=== PATIENT | male | born 1950 | race Caucasian/White ===

== ENCOUNTER 2018-06-18 10:58 | Outpatient (CLI) | payer MEDICARE, BC ==
[2018-06-18 11:54] LABS: BASOPHILS # (AUTO) 0.1 /CMM (0.0-0.2); BASOPHILS % (AUTO) 1.6 % (0.0-2.0); EOSINOPHILS % (AUTO) 2.3 % (0.0-6.0); HEMATOCRIT 43 % (39-51); HEMOGLOBIN 14.2 g/dL (13.5-17.5); LYMPHOCYTES # (AUTO) 1.5 /CMM (0.8-4.8); LYMPHOCYTES % (AUTO) 16.5 % (20.0-44.0); MEAN CORPUSCULAR HGB CONC 33 g/dl (31.0-36.0); MEAN CORPUSCULAR VOLUME 98 fL (80-96); MONOCYTES # (AUTO) 1.1 /CMM (0.1-1.30); MONOCYTES % (AUTO) 11.5 % (2.0-12.0); NEUTROPHILS # (AUTO) 6.2 /CMM (1.8-8.9); NEUTROPHILS % (AUTO) 68.1 % (43.0-81.0); PLATELET COUNT (AUTO) 430 /CMM (150-450); RED BLOOD CELL COUNT(AUTO) 4.37 MIL/uL (4.5-6.0); WHITE BLOOD COUNT (AUTO) 9.2 K/uL (4.3-11.0)
[2018-06-18 12:07] LABS: ALBUMIN 3.4 g/dL (3.4-5.0); BILIRUBIN,TOTAL 0.4 mg/dL (0.2-1.0); CALCIUM, SERUM 10.7 mg/dL (8.5-10.1); CREATININE 0.9 mg/dL (0.6-1.3); POTASSIUM 3.7 mmol/L (3.5-5.1); TOTAL PROTEIN, SERUM 7.6 g/dL (6.4-8.2)
[2018-06-18 12:20] LABS: FREE T4 (FREE THYROXINE) 0.76 ng/dL (0.76-1.46); PROSTATE SPECIFIC ANTIGEN SCR 15.1 ng/mL (0.00-4.00)
[2018-06-18 13:27] LABS: THYROID STIMULATING HORMONE 1.395 uIU/mL (0.358-3.74)
== END 2018-06-18 23:59 | disposition home or self-care (01) ==
LOC: LAB 10:58
PROVIDERS: ATTEND Internal Medicine Hematology & Oncology
DX: C18.9 Malignant neoplasm of colon, unspecified (principal); C73 Malignant neoplasm of thyroid gland
CPT/HCPCS: 36415; 80053; 82378; 84439; 84443; 85025; 86800; G0103; 84153-TC

== ENCOUNTER 2018-06-21 13:52 | Outpatient (CLI) | payer MEDICARE, BC | END 2018-06-21 23:59 | disposition home or self-care (01) | LOC: WOU 13:52 | PROVIDERS: ATTEND Internal Medicine Hematology & Oncology | DX: Z45.2 Encounter for adjustment and management of vascular access device (principal); C18.9 Malignant neoplasm of colon, unspecified; C73 Malignant neoplasm of thyroid gland | CPT/HCPCS: 36569; C1751 ==

== ENCOUNTER 2018-07-22 15:47 | Outpatient (CLI) | payer MEDICARE, BC | END 2018-07-22 23:59 | disposition home or self-care (01) | LOC: RAD 15:47 | PROVIDERS: ATTEND Internal Medicine Hematology & Oncology | DX: Z01.818 Encounter for other preprocedural examination (principal); J39.8 Other specified diseases of upper respiratory tract; E04.1 Nontoxic single thyroid nodule; E07.9 Disorder of thyroid, unspecified; M85.80 Other specified disorders of bone density and structure, unspecified site | CPT/HCPCS: 71045-TC ==

== ENCOUNTER 2018-08-19 08:54 | Outpatient (CLI) | payer MEDICARE, BC | END 2018-08-19 23:59 | disposition home or self-care (01) | LOC: RAD 08:54 | PROVIDERS: ATTEND Internal Medicine Hematology & Oncology | DX: E04.1 Nontoxic single thyroid nodule (principal) | CPT/HCPCS: 78014; A9516 ==

== ENCOUNTER 2018-11-26 14:44 | Outpatient (CLI) | payer MEDICARE, BC | END 2018-11-26 23:59 | disposition home or self-care (01) | LOC: RAD 14:44 | PROVIDERS: ATTEND Internal Medicine Hematology & Oncology | DX: Z01.818 Encounter for other preprocedural examination (principal) | CPT/HCPCS: 71046 ==

== ENCOUNTER 2019-02-01 10:45 | Outpatient (CLI) | payer MEDICARE, BC | END 2019-02-01 23:59 | disposition home or self-care (01) | LOC: RAD 10:45 | PROVIDERS: ATTEND Internal Medicine Hematology & Oncology | DX: C73 Malignant neoplasm of thyroid gland (principal); C18.9 Malignant neoplasm of colon, unspecified | CPT/HCPCS: 78306; A9503 ==

== ENCOUNTER 2019-03-11 13:06 | Outpatient (CLI) | payer MEDICARE, BC ==
[2019-03-27] MEDS ORDERED: CEPH-570 PO (09:38)
== END 2019-03-11 23:59 | disposition home or self-care (01) ==
LOC: RAD 13:06
PROVIDERS: ATTEND Internal Medicine Hematology & Oncology
DX: C79.51 Secondary malignant neoplasm of bone (principal)
CPT/HCPCS: 73552

== ENCOUNTER 2019-03-23 14:38 | Inpatient (IN) | payer MEDICARE, BC ==
[~2019-03-23] VITALS: Ht 182.9 cm; Wt 58.1 kg
--- NOTE | 2019-03-23 14:55 | NUR ---
"GENERALIZED WEAKNESS, LOSS OF APETITE X 1 WEEK" PT AAOX4, -SOB, NAD NOTED, PT ON MONITOR,VSS PENDING MD BAHENA
[2019-03-23] MEDS ORDERED: IV NS 0.9% 1,000 ML BAG IV ONE (15:30)
[2019-03-23 15:33] LABS: BASOPHILS # (AUTO) 0.1 /CMM (0.0-0.2); BASOPHILS % (AUTO) 0.7 % (0.0-2.0); EOSINOPHILS % (AUTO) 0.7 % (0.0-6.0); HEMATOCRIT 48 % (39-51); HEMOGLOBIN 15.8 g/dL (13.5-17.5); LYMPHOCYTES # (AUTO) 1.7 /CMM (0.8-4.8); LYMPHOCYTES % (AUTO) 20.9 % (20.0-44.0); MEAN CORPUSCULAR HGB CONC 33 g/dl (31.0-36.0); MEAN CORPUSCULAR VOLUME 101 fL (80-96); MONOCYTES # (AUTO) 0.4 /CMM (0.1-1.30); MONOCYTES % (AUTO) 5.1 % (2.0-12.0); NEUTROPHILS # (AUTO) 5.9 /CMM (1.8-8.9); NEUTROPHILS % (AUTO) 72.6 % (43.0-81.0); PLATELET COUNT (AUTO) 223 /CMM (150-450); RED BLOOD CELL COUNT(AUTO) 4.71 MIL/uL (4.5-6.0); WHITE BLOOD COUNT (AUTO) 8.1 K/uL (4.3-11.0)
[2019-03-23 15:35] LABS: CALCIUM, SERUM 10.3 mg/dL (8.5-10.1); CARBON DIOXIDE 29 mmol/L (21-32); CHLORIDE 100 mmol/L (98-107); CREATININE 2.4 mg/dL (0.6-1.3); GLUCOSE 130 mg/dL (74-106); POTASSIUM 4.5 mmol/L (3.5-5.1); SODIUM SERUM 137 mmol/L (136-145); UREA NITROGEN, BLOOD 38 mg/dL (7-18)
--- NOTE | 2019-03-23 17:46 | NUR ---
room [phone]
--- NOTE | 2019-03-23 17:53 | NUR ---
CALLED FOR REPORT, NURSE NOT AVAILABLE
--- NOTE | 2019-03-23 18:12 | NUR ---
REPORT GIVEN TO ROM DEGROOT FOR RENEE PT WILL BE TRANSPORTED TO 3RD FLOOR-MS
[2019-03-23] MEDS ORDERED: IV NS 0.9% 1,000 ML IV PRN (18:23)
[2019-03-23] MEDS ORDERED: ACETAMINOPHEN 325 MG TABLET PO PRN (18:30)
[2019-03-23] MEDS ORDERED: MAG HYDROX/AL HYDROX/SIMETH 30 ML UDC PO PRN (18:30)
[2019-03-23] MEDS ORDERED: HYDROCODONE/APAP 5/325MG 1 EACH TABLET PO PRN (18:30)
[2019-03-23] MEDS ORDERED: ONDANSETRON HCL/PF 4 MG/2 ML VIAL IVP PRN (18:30)
[2019-03-23] MEDS ORDERED: MAGNESIUM HYDROXIDE 30 ML UDC PO PRN (18:30)
[2019-03-23] MEDS ORDERED: Z GUARD REMEDY 2 OZ OINT TP PRN (18:30)
--- NOTE | 2019-03-23 18:40 | NUR ---
PT TRANSPORTED TO 3RD FLOOR VIA W/C
--- NOTE | 2019-03-23 19:10 | NUR ---
MS RN ADMITTING NOTES RECEIVED PT IN BED AWAKE AND ABLE TO MAKE NEEDS KNOWN. PT A/O X3. RESPIRATIONS EVEN AND UNLABORED WITH NO S/S OF ACUTE DISTRESS OR SOB NOTED. NO COMPLAINTS OF PAIN AT THIS TIME. PT WITH RAC@18G PATENT AND INTACT AND SL. SAFETY MEASURES IN PLACE WITH BED IN LOWEST LOCKED POSITION WITH SIDE RAILS UP X2. PT DENIES PICTURES AT THIS TIME. ORIENTED PT TO UNIT AND ROOM. INFORMED PT TO USE CALL LIGHT WHEN HELP IS NEEDED. CALL LIGHT WITHIN REACH. WILL CONTINUE TO MONITOR.
[2019-03-23 20:00] VITALS: BP 117/76
[2019-03-23] MEDS: LEVOTHYROXINE SODIUM 75 MCG TABLET PO SCH (20:21)
[2019-03-23] MEDS: IV NS 0.9% 1,000 ML IV PRN (20:37)
[2019-03-24] MEDS: IV NS 0.9% 1,000 ML IV PRN ×3 (06:53→22:10)
--- NOTE | 2019-03-24 06:57 | NUR ---
MS RN NOTES PT IN BED ASLEEP BUT EASILY AWOKEN VERBALLY OR BY TOUCH. PT A/O X3 AND ABLE TO MAKE NEEDS KNOWN. RESPIRATIONS EVEN AND UNLABORED WITH NO S/S OF ACUTE DISTRESS OR SOB NOTED THROUGHOUT SHIFT. NO COMPLAINTS OF PAIN AT THIS TIME. PT WITH RAC@18G PATENT AND INTACT AND RUNNING NS @100ML/HR. SAFETY MEASURES IN PLACE WITH BED IN LOWEST LOCKED POSITION WITH SIDE RAILS UP X2. CALL LIGHT WITHIN REACH. WILL ENDORSE TO ONCOMING NURSE FOR RENEE.
[2019-03-24 07:13] LABS: CALCIUM, SERUM 9.1 mg/dL (8.5-10.1); CREATININE 1.8 mg/dL (0.6-1.3); MAGNESIUM 1.4 mg/dL (1.8-2.4); PHOSPHORUS 3.8 mg/dL (2.5-4.9)
[2019-03-24 07:17] LABS: BASOPHILS % (AUTO) 0.5 % (0.0-2.0); EOSINOPHILS % (AUTO) 1.5 % (0.0-6.0); HEMATOCRIT 44 % (39-51); HEMOGLOBIN 14.4 g/dL (13.5-17.5); LYMPHOCYTES # (AUTO) 1.4 /CMM (0.8-4.8); LYMPHOCYTES % (AUTO) 21.4 % (20.0-44.0); MEAN CORPUSCULAR HGB CONC 33 g/dl (31.0-36.0); MEAN CORPUSCULAR VOLUME 100 fL (80-96); MONOCYTES # (AUTO) 0.4 /CMM (0.1-1.30); MONOCYTES % (AUTO) 5.6 % (2.0-12.0); NEUTROPHILS # (AUTO) 4.7 /CMM (1.8-8.9); PLATELET COUNT (AUTO) 211 /CMM (150-450); RED BLOOD CELL COUNT(AUTO) 4.37 MIL/uL (4.5-6.0); WHITE BLOOD COUNT (AUTO) 6.6 K/uL (4.3-11.0)
[2019-03-24 07:19] LABS: THYROID STIMULATING HORMONE 31.694 uIU/mL (0.358-3.74)
[2019-03-24 08:00] VITALS: BP 131/95
--- NOTE | 2019-03-24 08:00 | NUR ---
MS RN AM NOTES PT IN BED ASLEEP BUT EASILY AWOKEN VERBALLY OR BY TOUCH. PT A/O X3 AND ABLE TO MAKE NEEDS KNOWN. RESPIRATIONS EVEN AND UNLABORED WITH NO S/S OF ACUTE DISTRESS OR SOB NOTED.HAS POOR INTAKE INSPITE OF ENCOURAGEMENTS.NO COMPLAINTS OF PAIN AT THIS TIME. PT WITH RAC@18G PATENT AND INTACT AND RUNNING NS @100ML/HR. SAFETY MEASURES IN PLACE WITH BED IN LOWEST LOCKED POSITION WITH SIDE RAILS UP X2. CALL LIGHT WITHIN REACH.
[2019-03-24] MEDS: LEVOTHYROXINE SODIUM 75 MCG TABLET PO SCH (08:30)
[2019-03-24 10:10] LABS: THYROID STIMULATING HORMONE 31.912 uIU/mL (0.358-3.74)
[2019-03-24 11:00] VITALS: BP 160/87
[2019-03-24] MEDS: Magnesium 1GM/D5W 100ML PREMIX 100 ML IV SCH ×2 (11:25→12:43)
[2019-03-24 12:33] VITALS: BP 144/70
[2019-03-24 15:45] VITALS: BP 122/75
[2019-03-24] MEDS: ENSURE ENLIVE CHOC 237 ML CAN PO SCH ×2 (16:00→18:06)
[2019-03-24 20:00] VITALS: BP 121/74
--- NOTE | 2019-03-24 21:08 | NUR ---
Patient is alert and oriented, resides locally with spouse/family. He is ambulatory and independent with adl's. Denies having DME or homehealth. Pcp is Dr.Sujie Sousa. Current dc plan is to return home , family will provide ride. Addendum: 03/24/19 at 2109 by COLETTE RUGGIERO RN Amended: Links added.
--- NOTE | 2019-03-24 22:25 | NUR ---
MS/RN ON INITIAL ROUND AT 1930, PATIENT WAS AWAKE, ALERT, ORIENTED, COMFORTABLE, NO C/O PAIN, NO DISTRESS NOTED, CALL LIGHT IN REACH. WILL MONITOR.
--- NOTE | 2019-03-25 00:06 | NUR ---
MS/RN PATIENT IS SLEEPING AT THIS TIME, APPEAR COMFORTABLE, NO DISTRESS NOTED, CALL LIGHT IN REACH. WILL CONTINUE TO MONITOR.
--- NOTE | 2019-03-25 05:58 | NUR ---
MS/RN PATIENT IS STILL SLEEPING AT THIS TIME, APPEAR COMFORTABLE, NO DISTRESS NOTED, CALL LIGHT IN REACH. ALL NEEDS ATTENDED AT THIS TIME, WILL CONTINUE TO MONITOR.
[2019-03-25 06:24] LABS: BASOPHILS % (AUTO) 0.5 % (0.0-2.0); EOSINOPHILS % (AUTO) 0.7 % (0.0-6.0); HEMATOCRIT 42 % (39-51); LYMPHOCYTES # (AUTO) 1.4 /CMM (0.8-4.8); LYMPHOCYTES % (AUTO) 17.6 % (20.0-44.0); MEAN CORPUSCULAR HGB CONC 34 g/dl (31.0-36.0); MEAN CORPUSCULAR VOLUME 100 fL (80-96); MONOCYTES # (AUTO) 0.5 /CMM (0.1-1.30); MONOCYTES % (AUTO) 6.7 % (2.0-12.0); NEUTROPHILS % (AUTO) 74.5 % (43.0-81.0); PLATELET COUNT (AUTO) 230 /CMM (150-450); RED BLOOD CELL COUNT(AUTO) 4.16 MIL/uL (4.5-6.0); WHITE BLOOD COUNT (AUTO) 8.1 K/uL (4.3-11.0)
[2019-03-25 07:24] LABS: CALCIUM, SERUM 8.5 mg/dL (8.5-10.1); CREATININE 1.6 mg/dL (0.6-1.3); MAGNESIUM 1.7 mg/dL (1.8-2.4); POTASSIUM 3.8 mmol/L (3.5-5.1)
--- NOTE | 2019-03-25 07:28 | NUR ---
MS RN OPENING NOTES RECEIVED PATIENT ASLEEP IN BED IN MODERATE HIGH BACK REST. A/O X 4. IV FLUIDS ON RIGHT AC #18 WITH NS @100ML/HR. PATENT AND INTACT. SAFETY MEASURES IN PLACED, BED IN LOW LOCKED POSITION WITH SIDE RAILS UP X2. CALL LIGHT WITHIN REACH. WILL CONTINUE TO MONITOR.
[2019-03-25 08:00] VITALS: BP 119/85
[2019-03-25] MEDS: LEVOTHYROXINE SODIUM 75 MCG TABLET PO SCH (08:14)
[2019-03-25] MEDS: ENSURE ENLIVE CHOC 237 ML CAN PO SCH ×3 (08:14→16:54)
[2019-03-25] MEDS ORDERED: Magnesium 1GM/D5W 100ML PREMIX 100 ML IV SCH (10:00)
[2019-03-25 10:07] LABS: APPEARANCE,URINE SL CLOUDY (CLEAR); BILIRUBIN,URINE NEGATIVE (NEGATIVE); BLOOD, URINE NEGATIVE Ery/uL (NEGATIVE); COLOR,URINE YELLOW (YELLOW); KETONES,URINE NEGATIVE (NEGATIVE); LEUKOCYTE ESTERASE ,URINE 1+ (NEGATIVE); NITRITE, URINE NEGATIVE (NEGATIVE); PH,URINE 5.5 (5.0-8.0); PROTEIN,URINE 2+ mg/dl (NEGATIVE); UGLUCOSE NEGATIVE (NEGATIVE); UROBILINOGEN,URINE 0.2 EU/dL (0.2)
--- NOTE | 2019-03-25 10:09 | NUR ---
WOUND CARE CONSULT:PT PRESENTS WITH DRY SKIN TO ARMS AND LEGS AND RASH TO BUTTOCKS AND PERINEUM. RECOMMENDATIONS MADE FOR SKIN PROTECTION AND CARE. DISCUSSED WITH NURSING STAFF. IN AGREEMENT WITH PLAN OF CARE. Addendum: 03/25/19 at 1013 by NAGA BLACK WNDNU Amended: Links added.
[2019-03-25] MEDS ORDERED: MINERAL OIL/PETROLATUM,WHITE 120 GM JAR TP PRN (10:30)
[2019-03-25 10:50] LABS: RBC,URINE 0-2 /HPF (0-2)
[2019-03-25 10:53] LABS: BACTERIA,URINE Rare /HPF (None Seen); COARSE GRANULAR CASTS,URINE Few /LPF (None Seen); SQUAMOUS EPITHELIAL CELL,UR Rare /HPF (None Seen)
[2019-03-25 10:54] LABS: CALCIUM OXALATE CRYSTALS,UR Few /HPF (None Seen); FINE GRANULAR CASTS,URINE Few /LPF (None Seen)
[2019-03-25] MEDS: CEFTRIAXONE 1 G in IV D5W 50 ML IV SCH (13:39)
[2019-03-25] MEDS: IV NS 0.9% 1,000 ML IV PRN (13:41)
[2019-03-25 16:00] VITALS: BP 100/76
[2019-03-25] MEDS: CLOTRIMAZOLE 1% 15 GM TUBE TP SCH (16:55)
[2019-03-25] MEDS: LOPERAMIDE HCL (2 MG CAP) 2 MG CAPSULE PO PRN (18:02)
--- NOTE | 2019-03-25 18:52 | NUR ---
MS RN CLOSING NOTES PATIENT RESTING IN BED IN MODERATE HIGH BACK REST. A/O X 4. ON RA, TOLERATING WELL. IV FLUIDS ON RIGHT AC #18 WITH NS @100ML/HR. PATENT AND INTACT. SAFETY MEASURES IN PLACED, BED IN LOW LOCKED POSITION WITH SIDE RAILS UP X2. CALL LIGHT WITHIN REACH. WILL ENDORSED TO MODEL MAKER SCALE NURSE FOR RENEE.
--- NOTE | 2019-03-25 18:55 | NUR ---
RN medsurg opening notes Received Pt from morning nurse. Pt is alert and oriented X4. Pt is laying in bed comfortably. Respiration is normal. No SOB. No nausea or vomiting. Pt denies any pain or discomfort. IV sites at R AC # 18 is clean, intact, patent and infusing well NS @ 100ml/hr. Instructed Pt to call for assistance. Safety precautions is maintained. Bed at low position, brakes locked, side rails upX3 and call light is within reach. Will continue to monitor and assist all needs.
[2019-03-25 20:00] VITALS: BP 132/82
[2019-03-26] MEDS: IV NS 0.9% 1,000 ML IV PRN (01:16)
[2019-03-26] MEDS: LOPERAMIDE HCL (2 MG CAP) 2 MG CAPSULE PO PRN (04:55)
--- NOTE | 2019-03-26 04:55 | NUR ---
RN medsurg notes Administered Imodium cap 2 mg/ 1 cap /PO as ordered for diarrhea per Pt's request. Will continue to monitor.
[2019-03-26 06:31] LABS: BASOPHILS % (AUTO) 0.4 % (0.0-2.0); EOSINOPHILS % (AUTO) 0.8 % (0.0-6.0); HEMATOCRIT 41 % (39-51); HEMOGLOBIN 13.9 g/dL (13.5-17.5); LYMPHOCYTES # (AUTO) 1.3 /CMM (0.8-4.8); LYMPHOCYTES % (AUTO) 22.5 % (20.0-44.0); MEAN CORPUSCULAR HGB CONC 34 g/dl (31.0-36.0); MEAN CORPUSCULAR VOLUME 100 fL (80-96); MONOCYTES # (AUTO) 0.6 /CMM (0.1-1.30); NEUTROPHILS # (AUTO) 3.8 /CMM (1.8-8.9); NEUTROPHILS % (AUTO) 66.3 % (43.0-81.0); PLATELET COUNT (AUTO) 229 /CMM (150-450); RED BLOOD CELL COUNT(AUTO) 4.15 MIL/uL (4.5-6.0); WHITE BLOOD COUNT (AUTO) 5.8 K/uL (4.3-11.0)
--- NOTE | 2019-03-26 06:40 | NUR ---
RN medsurg closing notes Pt is alert and oriented X4. Pt is sleeping in bed comfortably. No SOB. No nausea or vomiting. Pt denies any pain. IV sites at RAC#18 is patent, intact and infusing well NS @ 100ml/hr. Skin care provided. All needs met. Encouraged Pt to eat and drink ensure. Safety precautions is maintained. Instructed to call. Bed at low position, brakes locked, side rails upX2 and call light is within reach. Will endorse to morning nurse for RENEE.
[2019-03-26 07:06] LABS: CALCIUM, SERUM 7.9 mg/dL (8.5-10.1); CREATININE 1.5 mg/dL (0.6-1.3); MAGNESIUM 1.7 mg/dL (1.8-2.4); POTASSIUM 3.7 mmol/L (3.5-5.1)
--- NOTE | 2019-03-26 07:45 | NUR ---
MS RN OPENING NOTES RECEIVED PT LAYING IN BED WITH HOB ELEVATED. PT IS A/O X4, AFEBRILE. RESPIRATIONS ARE EVEN AND UNLABORED, NOT IN ANY ACUTE DISTRESS NOTED. DENIES ANY PAIN, SOB, N/V. IV SITE TO RAC INTACT, NO INFILTRATION NOTED. DRESSING KEPT CLEAN AND DRY. SAFETY MEASURES ARE IN PLACE. INSTRUCTED PT TO USE CALL LIGHT WHEN ASSISTANCE IS NEEDED, CALL LIGHT IS LEFT WITHIN REACH. WILL MONITOR THROUGHOUT SHIFT FOR CONTINUITY OF CARE.
[2019-03-26 08:00] VITALS: BP_SYST 112; BP_DIAS 61; BP_DIAS 66
[2019-03-26] MEDS: LEVOTHYROXINE SODIUM 75 MCG TABLET PO SCH (08:30)
[2019-03-26] MEDS: CLOTRIMAZOLE 1% 15 GM TUBE TP SCH ×2 (08:31→16:07)
[2019-03-26] MEDS: ENSURE ENLIVE CHOC 237 ML CAN PO SCH ×3 (08:31→16:06)
[2019-03-26] MEDS: Magnesium 1GM/D5W 100ML PREMIX 100 ML IV SCH ×2 (09:52→10:55)
--- NOTE | 2019-03-26 10:30 | NUR ---
MS RN NOTES-- PT SEEN AND EXAMINED BY DR. MATHEWS.
--- NOTE | 2019-03-26 12:00 | NUR ---
MS RN NOTES-- PT SEEN AND EXAMINED BY EDGARDO DELUNA NP.
[2019-03-26] MEDS: CEFTRIAXONE 1 G in IV D5W 50 ML IV SCH (13:40)
[2019-03-26 16:00] VITALS: BP 114/75
--- NOTE | 2019-03-26 18:29 | NUR ---
MS RN CLOSING NOTES ALL DUE MEDS GIVEN, NEEDS MET AND RENDERED. PT IS A/O X4, AFEBRILE. RESPIRATIONS ARE EVEN AND UNLABORED, NOT IN ANY ACUTE DISTRESS NOTED. PT DENIES ANY PAIN, SOB, N/V. IV SITE TO RAC INTACT, NO INFILTRATION NOTED. DRESSING KEPT CLEAN AND DRY. SAFETY MEASURES ARE IN PLACE. REMINDED PT TO USE CALL LIGHT WHEN ASSISTANCE IS NEEDED, CALL LIGHT IS LEFT WITHIN REACH. WILL ENDORSE TO NEXT SHIFT FOR CONTINUITY OF CARE.
--- NOTE | 2019-03-26 19:37 | NUR ---
RN MS OPENING NOTES RECEIVED PT IN BED, AWAKE ALERT ORIENTED, X4, BREATHING EVEN AND UNLABORED ON ROOM AIR, NO SOB NOTED. NO COMPLAINT OF PAIN OR DISCOMFORT AT THIS TIME. IV ACCESS ON THE R AC 18 G SL PATENT AND FLUSHING. BED IN LOWEST LOCKED POSITION, CALL LIGHT WITHIN REACH AT ALL TIMES, WILL CONTINUE TO MONITOR.
[2019-03-26 20:00] VITALS: BP 125/77
--- NOTE | 2019-03-27 06:08 | NUR ---
RN MS CLOSING NOTES PT REMAINS IN BED SLEEPING, EASILY AROUSED TO NAME CALL. BREATHING EVEN AND UNLABORED ON ROOM AIR. IN NO APPARENT PAIN OR DISCOMFORT AT THE MOMENT. IV ACCESS REMAINS PATENT AND FLUSHING. REMAINED STABLE DURING NIGHT. BED IN LOWEST LOCKED POSITION, CALL LIGHT WITHIN REACH AT ALL TIMES, WILL ENDORSE TO DAY NURSE FOR RENEE
--- NOTE | 2019-03-27 07:42 | NUR ---
MS RN OPENING NOTES RECEIVED PATIENT IN BED RESTING COMFORTABLY IN MODERATE HIGH BACK REST, A/O X 4. NO COMPLAIN OF PAIN OR DISCOMFORT AT THIS TIME. IV ACCESS ON RIGHT AC #18. PATENT AND INTACT. SAFETY MEASURES IN PLACE. BED IN LOW LOCKED POSITION WITH SIDE RAILS UP X2. CALL LIGHT WITHIN REACH. WILL CONTINUE TO MONITOR.
[2019-03-27 08:00] VITALS: BP 114/72
[2019-03-27] MEDS: LEVOTHYROXINE SODIUM 75 MCG TABLET PO SCH (08:01)
[2019-03-27] MEDS: ENSURE ENLIVE CHOC 237 ML CAN PO SCH ×2 (08:02→11:44)
[2019-03-27 08:09] LABS: BASOPHILS % (AUTO) 0.6 % (0.0-2.0); EOSINOPHILS % (AUTO) 1.5 % (0.0-6.0); HEMATOCRIT 40 % (39-51); HEMOGLOBIN 13.2 g/dL (13.5-17.5); LYMPHOCYTES # (AUTO) 1.4 /CMM (0.8-4.8); LYMPHOCYTES % (AUTO) 21.2 % (20.0-44.0); MEAN CORPUSCULAR HGB CONC 33 g/dl (31.0-36.0); MEAN CORPUSCULAR VOLUME 100 fL (80-96); MONOCYTES # (AUTO) 0.5 /CMM (0.1-1.30); MONOCYTES % (AUTO) 7.2 % (2.0-12.0); NEUTROPHILS # (AUTO) 4.4 /CMM (1.8-8.9); NEUTROPHILS % (AUTO) 69.5 % (43.0-81.0); PLATELET COUNT (AUTO) 249 /CMM (150-450); RED BLOOD CELL COUNT(AUTO) 3.95 MIL/uL (4.5-6.0); WHITE BLOOD COUNT (AUTO) 6.4 K/uL (4.3-11.0)
[2019-03-27 08:28] LABS: ALBUMIN 2.6 g/dL (3.4-5.0); BILIRUBIN,TOTAL 0.3 mg/dL (0.2-1.0); CALCIUM, SERUM 8.2 mg/dL (8.5-10.1); CREATININE 1.5 mg/dL (0.6-1.3); MAGNESIUM 1.8 mg/dL (1.8-2.4); POTASSIUM 3.5 mmol/L (3.5-5.1); TOTAL PROTEIN, SERUM 6.7 g/dL (6.4-8.2)
[2019-03-27] MEDS: CLOTRIMAZOLE 1% 15 GM TUBE TP SCH (09:06)
[2019-03-27] MEDS ORDERED: CEPH-570 PO (09:38)
[2019-03-27] MEDS ORDERED: K PHOS NEUTRAL 250 MG TABLET PO ONE (11:30)
[2019-03-27] MEDS: CEFTRIAXONE 1 G in IV D5W 50 ML IV SCH (13:05)
[2019-03-27 16:00] VITALS: BP 128/86
--- NOTE | 2019-03-27 17:00 | NUR ---
RN DISCHARGED NOTES PATIENT DISCHARGED IN STABLE CONDITION. A/O X 4. ABLE TO MAKE NEEDS KNOWN. V/S TAKEN, STABLE AND RECORDED. PATIENT'S IV ACCESS REMOVED AND APPLIED PRESSURE DRESSING. SKIN IS INTACT. NAME ARM BAND REMOVED. ALL BELONGINGS CHECKED AND SIGNED. PRESCRIPTION MEDICATION WAS GIVEN TO PATIENT AND FAXED TO PHARMACY. HEALTH TEACHING/DISCHARGED INSTRUCTIONS GIVEN AND VERBALIZED UNDERSTANDING. PATIENT LEFT UNIT VIA WHEELCHAIR @1655 WITH NO ACUTE SIGNS OF DISTRESS. PATIENT ASSISTED TO THE LOBBY WITH HOSPITAL STAFF. CHARGE NURSE AWARE OF DISCHARGED.
== END 2019-03-27 16:53 | disposition home or self-care (01) | DRG 689 ==
LOC: ER 14:38 → MED 18:21
PROVIDERS: ADMIT Nurse Practitioner Acute Care; ATTEND Nurse Practitioner Acute Care
DX: N39.0 Urinary tract infection, site not specified (principal); N17.0 Acute kidney failure with tubular necrosis; C79.9 Secondary malignant neoplasm of unspecified site; C85.90 Non-Hodgkin lymphoma, unspecified, unspecified site; E86.0 Dehydration; Z85.038 Personal history of other malignant neoplasm of large intestine; Z87.891 Personal history of nicotine dependence; Z85.850 Personal history of malignant neoplasm of thyroid; E89.0 Postprocedural hypothyroidism; Z98.890 Other specified postprocedural states; Z91.81 History of falling; N18.9 Chronic kidney disease, unspecified; E83.52 Hypercalcemia; Z83.3 Family history of diabetes mellitus
CPT/HCPCS: 36415; 70450-TC; 71045-TC; 80048-TC; 80053-TC; 80061-TC; 81000-TC; 82378; 83735-TC; 84100-TC; 84439-TC; 84443-TC; 84484-TC; 85025-TC; 87081-TC; 87086-TC; 97116-TC; 97530-TC; G0378; J0696; J3475; J7030; J7060

== ENCOUNTER 2019-04-18 16:48 | Inpatient (IN) | payer MEDICARE, MEDICAID ==
[~2019-04-18] VITALS: Ht 182.9 cm; Wt 55.8 kg
[~2019-04-18 16:48] MED LIST: CEPH-570 PO
--- NOTE | 2019-04-18 17:10 | NUR ---
68 YEAR OLD MALE BIB RA [address] FROM HOME, LACERATION TO RIGHT SIDE OF FOREHEAD, TRIP/FALL AT HOME,DENIES LOC. ALERT AND OREINTED X3, BREATHING EVEN AND UNLABORED. MINIMAL PAIN AT THIS TIME. DENIES BLURRY VISION. NOTED RIGHT SIDE MINOR LACERATION, NO BLEEDING NOTED. WAITING TO BE SEEN MY MD
[2019-04-18] MEDS ORDERED: TDAP [DIPH/PERTUSSIS/TET] 0.5 ML VIAL IM ONE ×2 (17:21→17:30)
[2019-04-18] MEDS ORDERED: IV NS 0.9% 1,000 ML BAG IV ONE (17:30)
[2019-04-18 17:34] LABS: BASOPHILS % (AUTO) 0.5 % (0.0-2.0); EOSINOPHILS % (AUTO) 0.8 % (0.0-6.0); HEMATOCRIT 49 % (39-51); HEMOGLOBIN 16.5 g/dL (13.5-17.5); LYMPHOCYTES # (AUTO) 1.2 /CMM (0.8-4.8); LYMPHOCYTES % (AUTO) 19.4 % (20.0-44.0); MEAN CORPUSCULAR HGB CONC 34 g/dl (31.0-36.0); MEAN CORPUSCULAR VOLUME 101 fL (80-96); MONOCYTES # (AUTO) 0.6 /CMM (0.1-1.30); MONOCYTES % (AUTO) 10.2 % (2.0-12.0); NEUTROPHILS # (AUTO) 4.4 /CMM (1.8-8.9); NEUTROPHILS % (AUTO) 69.1 % (43.0-81.0); PLATELET COUNT (AUTO) 311 /CMM (150-450); RED BLOOD CELL COUNT(AUTO) 4.87 MIL/uL (4.5-6.0); WHITE BLOOD COUNT (AUTO) 6.4 K/uL (4.3-11.0)
--- NOTE | 2019-04-18 17:44 | NUR ---
DOOR CAPTAIN AT BEDSIDE TO TAKE PATIENT FOR CT SCAN
[2019-04-18 17:58] LABS: CALCIUM, SERUM 11.5 mg/dL (8.5-10.1); CARBON DIOXIDE 26 mmol/L (21-32); CHLORIDE 93 mmol/L (98-107); CREATININE 4.3 mg/dL (0.6-1.3); GLUCOSE 128 mg/dL (74-106); POTASSIUM 3.3 mmol/L (3.5-5.1); SODIUM SERUM 133 mmol/L (136-145); UREA NITROGEN, BLOOD 63 mg/dL (7-18)
[2019-04-18 18:04] LABS: ALANINE AMINOTRANSFERASE 23 U/L (12-78); ALBUMIN 3.8 g/dL (3.4-5.0); ALKALINE PHOSPHATASE 134 U/L (46-116); ASPARTATE AMINOTRANSFERASE 29 U/L (15-37); BILIRUBIN,DIRECT 0.2 mg/dL (0.0-0.2); BILIRUBIN,TOTAL 0.7 mg/dL (0.2-1.0)
[2019-04-18 18:15] LABS: BAND % (MANUAL) 2 % (0.0-5.0); EOSINOPHILS % (MANUAL) 3 % (0-4); LYMPHOCYTES % (MANUAL) 23 % (16-48); MONOCYTES % (MANUAL) 10 % (0-11.0); NEUTROPHILS % (MANUAL) 62 (42-76)
--- NOTE | 2019-04-18 18:21 | NUR ---
CALLED , TRANSFERRED CALL TO FREDI
[2019-04-18] MEDS ORDERED: LOPE2CAP40 PO (18:24)
[2019-04-18] MEDS ORDERED: [UNRECOGNIZED DRUG - CODE] PO (18:24)
[2019-04-18] MEDS ORDERED: LEVO75TA7 PO (18:24)
[2019-04-18] MEDS ORDERED: IV NS 0.9% 1,000 ML IV ONE (18:30)
--- NOTE | 2019-04-18 19:00 | NUR ---
[facility] PAGED CHASIDY LAINEZ BOILER TENDER
--- NOTE | 2019-04-18 19:34 | NUR ---
CALLED NURSING SUP. FOR TELE BED
[2019-04-18] MEDS ORDERED: MAG HYDROX/AL HYDROX/SIMETH 30 ML UDC PO PRN (20:00)
[2019-04-18] MEDS ORDERED: IV NS 0.9% 1,000 ML IV SCH (20:00)
[2019-04-18] MEDS ORDERED: DOCUSATE SODIUM 100 MG CAPSULE PO PRN (20:00)
[2019-04-18] MEDS ORDERED: ONDANSETRON HCL/PF 4 MG/2 ML VIAL IVP PRN (20:00)
[2019-04-18] MEDS ORDERED: ACETAMINOPHEN 325 MG TABLET PO PRN (20:00)
--- NOTE | 2019-04-18 20:32 | NUR ---
REPORT GIVEN TO ZANE MAYEN FOR RENEE
[2019-04-18] MEDS ORDERED: HEPARIN SODIUM, PORCINE 5000 UNITS/1 ML VIAL IV ONE (21:00)
[2019-04-18] MEDS ORDERED: HEPARIN INFUSION/D5W 500 ML IV PRN (21:00)
--- NOTE | 2019-04-18 21:08 | NUR ---
2107 ELEANOR LAINEZ NOTIFIED OF PATIENT'S EPISODE OF V-TACH THAT LASTED 90 SECS, UPDATED HER THAT PATIENT IS AWAKE AND VERBALLY RESPONSIVE, BP140/89, WITH ORDER TO UPGRADE PATIENT TO PRAKASH STATUS. NO ORDER FOR V-TACH AT THIS MOMENT. PATIENT IN AND OUT A-FIB CONTROLLED RATE OF 60S. NO COMPLAINT OF CHEST PAIN WHEN ASKED. WILL CONT. TO CLOSELY MONITOR.
--- NOTE | 2019-04-18 21:50 | NUR ---
9490 SPOKE WITH PATIENT'S KEYA AND UPDATED HER ON PATIENT'S CONDITION INCLUDING THE EPISODE OF ARRHYTHMIA AND THE PLAN OF CARE FOR PATIENT WITH ALL HER QUESTIONS ANSWERED.
--- NOTE | 2019-04-18 21:55 | NUR ---
RN PRAKASH ADMITTING NOTE RECEIVED PT FROM ER, AOX4, C/C S/P FALL RT FORE HEAD LACERATION, CT HEAD (-), PRIMARY IMPRESSION ACUTE KIDNEY INJURY D/T SEVERE DEHYDRATION, CREA 4.3 BUN 63, PT DENIES ANY CP PAIN OR DISCOMFORT, ON NC@2L/PM, AFIB CONTROLLED WITH SB EPISODES TO LOW 50'S, ELEANOR LAINEZ NOTIFIED, CONT' TO MONITOR, SKIN ISSUES NOTED LT ELBOW SKI N TEAR, RT ELBOW SCAB, SACRAL REDNESS NOTED, LT AC#18G WELL SECURE AND PATENT, PHARMACY CALLED PT TO BE STARED ON HEPARIN DRIP PER PROTOCOL, BOLUS TO BE GIVEN, PT/PTT ORDERED, IV NS@100ML/HR INITIATED. 2200 PT WITH EPISODE OF VTACH LASTING 90 MIN'S, ELEANOR LAINEZ NOTIFIED, PT BACK TO NSR AND SB, WILL CONT' TO MONITOR, ASSESSED BY ELEANOR LAINEZ AT BEDSIDE, ASYMPTOMATIC, CONT' TO MONITOR, NOTIFIED ON PLAN OF CARE, CODE STATUS OBTAINED.
[2019-04-18 22:00] VITALS: BP 140/80
[2019-04-18] MEDS ORDERED: SIMVASTATIN 20 MG TABLET PO SCH (22:00)
--- NOTE | 2019-04-18 22:15 | NUR ---
2215 HEPARIN DRIP STARTED PER PROTOCOL ORDERED.
[2019-04-18] MEDS ORDERED: IPRATROPIUM BROMIDE 14 GM INHALER (or 12.9 GM) IH PRN (22:30)
[2019-04-18] MEDS ORDERED: ALBUTEROL FS 2.5 MG/0.5 ML VIAL.NEB NEB PRN (22:30)
--- NOTE | 2019-04-18 22:30 | NUR ---
2230 PATIENT AWAKE AND VERBALLY RESPONSIVE . CONTINUE TO DENY CHEST PAIN WHEN ASKED, NO SIGNS OF DISTRESS. KEPT COMFORTABLE. CALL LIGHT PLACED WITHIN REACH. NSR ON THE MONITOR WITH OCCASIONAL PVCS HR IN THE 60S.
--- NOTE | 2019-04-18 22:50 | NUR ---
0131 ELEANOR LAINEZ NOTIFIED OF PATIENT FREQUENT PVCS NOW WITH ORDER TO GIVE 20 MEQ KCL IV FOR POTASSIUM LEVEL OF 3.3. ORDER NOTED.
[2019-04-18] MEDS ORDERED: LOPERAMIDE HCL (2 MG CAP) 2 MG CAPSULE PO PRN (23:00)
[2019-04-19] MEDS: POTASSIUM CL. PREMIX PERIPHER. 50 ML IV SCH ×2 (00:28→01:11)
[2019-04-19 02:49] VITALS: BP 140/80
[2019-04-19] MEDS ORDERED: PIPERACILLIN /TAZOBACTAM 2.25 G VIAL IV ONE (04:38)
[2019-04-19 04:53] LABS: ALBUMIN 3.1 g/dL (3.4-5.0); BILIRUBIN,TOTAL 0.6 mg/dL (0.2-1.0); CALCIUM, SERUM 9.7 mg/dL (8.5-10.1); CREATININE 2.9 mg/dL (0.6-1.3); MAGNESIUM 1.7 mg/dL (1.8-2.4); PHOSPHORUS 4.4 mg/dL (2.5-4.9); POTASSIUM 3.4 mmol/L (3.5-5.1); TOTAL PROTEIN, SERUM 7.5 g/dL (6.4-8.2)
[2019-04-19] MEDS: PIPERACILLIN /TAZOBACTAM 2.25 G in IV D5W 50 ML IV SCH ×3 (05:03→20:36)
[2019-04-19 05:04] LABS: BASOPHILS % (AUTO) 0.7 % (0.0-2.0); EOSINOPHILS % (AUTO) 1.7 % (0.0-6.0); HEMATOCRIT 45 % (39-51); HEMOGLOBIN 14.9 g/dL (13.5-17.5); LYMPHOCYTES # (AUTO) 1.1 /CMM (0.8-4.8); LYMPHOCYTES % (AUTO) 17.4 % (20.0-44.0); MEAN CORPUSCULAR HGB CONC 33 g/dl (31.0-36.0); MEAN CORPUSCULAR VOLUME 101 fL (80-96); MONOCYTES # (AUTO) 0.6 /CMM (0.1-1.30); MONOCYTES % (AUTO) 9.6 % (2.0-12.0); NEUTROPHILS # (AUTO) 4.5 /CMM (1.8-8.9); RED BLOOD CELL COUNT(AUTO) 4.42 MIL/uL (4.5-6.0); WHITE BLOOD COUNT (AUTO) 6.4 K/uL (4.3-11.0)
[2019-04-19 05:32] LABS: THYROID STIMULATING HORMONE 29.785 uIU/mL (0.358-3.74)
[2019-04-19 06:26] LABS: PLATELET COUNT (AUTO) 250 /CMM (150-450)
[2019-04-19 06:27] LABS: NEUTROPHILS % (AUTO) 70.6 % (43.0-81.0)
[2019-04-19] MEDS ORDERED: Magnesium 1GM/D5W 100ML PREMIX 100 ML IV SCH (06:30)
--- NOTE | 2019-04-19 06:32 | NUR ---
RN PRAKASH CLOSING NOTE ENDORSED PT TO AM RN TO F/U WITH PLAN OF CARE, PT NSR/SB LOW 50'S, HEPARIN DRIP ON HOLD PTT 121.6 MG 1.7 AND PHOS LOW RELAYED LABS TO MIGEL FERTILIZER MIXER WITH ORDER FOR MG 1MG, HEPARIN DRIP STOPPED AT 0615, NO S/SX OF BLEEDING , SAFETY MEASURES IN PLACE, ABNORMAL LABS TO BE F/U IN AM.
[2019-04-19 06:41] VITALS: BP 118/70
[2019-04-19 08:00] VITALS: BP 115/88
[2019-04-19] MEDS ORDERED: IPRATROPIUM NEB FS 0.5 MG/2.5 ML AMPUL.NEB NEB PRN (08:00)
--- NOTE | 2019-04-19 08:00 | NUR ---
TELE1/RN AM SHIFT INITIAL NOTES RECEIVED PT ASLEEP IN BED, PT A/O X 4, EASILY AROUSED, DENIES ANY SYMPTOMS AT THIS TIME. ON 2L O2 VIA N/C SATURATING @ 97%, RESPIRATIONS EVEN & UNLABORED. LUNG SOUNDS CLEAR. NO ACUTE CHANGE OF CONDITION AT THIS TIME. ON TELE MONITORING, SINUS ANDERSON, HR 48. WITH ON GOING IV INFUSION OF NS @ 100CC/HR AND MAGNESIUM @ 100CC/HR. HEPARIN DRIP WAS STOPPED FROM PREVIOUS SHIFT, IV SITES PATENT WITH NO S/S OF INFECTION. TIMED COAGULATION PANEL DRAWN. AM MEDS TO BE GIVEN. CL WITHIN REACHED AND SAFETY MAINTAINED. ON GOING MONITORING.
[2019-04-19] MEDS: LEVOTHYROXINE SODIUM 75 MCG TABLET PO SCH (08:10)
[2019-04-19] MEDS: ASPIRIN 81 MG TAB.CHEW PO SCH (08:10)
[2019-04-19] MEDS ORDERED: APIXABAN 2.5 MG TABLET PO SCH (09:00)
--- NOTE | 2019-04-19 09:30 | NUR ---
TD/RN ROUNDS - DR. BERNARD UPDATED PT'S CONDITION. PT SEEN & EXAMINED BY DR. BERNARD. NO NEW ORDERS RECEIVED AT THIS TIME. MONITORING CONTINUED.
--- NOTE | 2019-04-19 10:19 | NUR ---
TELE1/RN V-TACH PT NOTED WITH V-TACH, HR 190s. DR. BERNARD AND PRIMARY AWARE NO NEW ORDER RECEIVED. EKG BEING TAKEN AT THIS TIME.
--- NOTE | 2019-04-19 10:21 | NUR ---
WOUND CARE CONSULT: PT PRESENTS WITH VERY DRY SKIN TO ARMS AND LEGS, BILATERAL ELBOW SKIN TEARS, CLOSED WOUND WITH RAISED AREA TO RT FOREHEAD AND REDNESS/RASH TO PERIANAL AND PERINEAL AREAS, PRESENT ON ADMISSION. RECOMMENDATIONS MADE FOR SKIN PROTECTION AND WOUND CARE. DISCUSSED WITH NURSING STAFF. PT ABLE TO REPOSITION IN BED. CURRENT ANETA SCORE IS 17. WILL SEE PRN. REED IN AGREEMENT WITH PLAN OF CARE. Addendum: 04/19/19 at 1023 by NAGA BLACK WNDNU Amended: Links added.
--- NOTE | 2019-04-19 10:30 | NUR ---
TELE1/RN ROUNDS - DR. RISA REED MADE AWARE OF PT'S IRREGULAR HEART BEAT. PT SEEN & EXAMINED VY DR. LORD, NO NEW ORDERS RECEIVED AT THIS TIME.
[2019-04-19] MEDS: POTASSIUM CHLORIDE 20 MEQ TAB.PRT.SR PO SCH ×3 (10:33→13:30)
[2019-04-19] MEDS: IV NS 0.9% 1,000 ML IV PRN ×2 (10:33→22:38)
[2019-04-19] MEDS: MINERAL OIL/PETROLATUM,WHITE 120 GM JAR TP SCH (11:59)
[2019-04-19 12:00] VITALS: BP 109/71
[2019-04-19] MEDS ORDERED: Magnesium 1GM/D5W 100ML PREMIX 100 ML IV ONE (12:00)
[2019-04-19 16:00] VITALS: BP 122/80
--- NOTE | 2019-04-19 16:30 | NUR ---
TELE1/RN PM ROUNDS PM CARE PROVIDED, NO ACUTE CHANGE OF CONDITION. MONITORING CONTINUED.
[2019-04-19] MEDS: CLOTRIMAZOLE 1% 15 GM TUBE TP SCH (17:03)
[2019-04-19] MEDS: ENSURE ENLIVE CHOC 237 ML CAN PO SCH (17:52)
--- NOTE | 2019-04-19 18:40 | NUR ---
TELE1/RN ROUNDS - DR. LANDRY UPDATED PT'S CONDITION. REPORTED PT'S POOR APPETITE, WITH NEW ORDER RECEIVED FOR MEGACE, NOTED AND CARRIED.
--- NOTE | 2019-04-19 19:04 | NUR ---
TELE1/RN AM SHIFT END NOTES ALL NEEDS MET. NO ACUTE CHANGE OF CONDITION NOTED DURING THE SHIFT. PT ENDORSED TO PM NURSE TO CONTINUE CARE. IV SITE WITH ON GOING INFUSION OF NS @ 100CC/HR, PATENT WITH NO S/ OF INFECTION. CL WITHIN REACHED AND SAFETY MAINTAINED.
--- NOTE | 2019-04-19 19:10 | NUR ---
TELE/RN NOTES RECEIVED REPORT AT BEDSIDE.MONITOR SHOWS NSR.OFFERS NO COMPLAINTS.AAOX4.IV SITES X2 PATENT.RT FEMORAL HD CATH INTACT.
--- NOTE | 2019-04-19 19:56 | NUR ---
TELE/RN NOTES MONITOR SHOWS V-TACH X2MIN THEN WENT INTO SINUS ANDERSON THEN NSR. PT AWAKE ALERT OX4 DENIES CHEST PAIN,C/O OF BEING COLD,WARM BLANKET GIVEN.
[2019-04-19 20:00] VITALS: BP 120/87
--- NOTE | 2019-04-19 21:00 | NUR ---
TELE/RN/NOTES RECEIVED TRANSFER FROM ICU TO ROOM 112-2 W/ DX SEPSIS,PT W/ EYES CLOSED,RESPONDS TO DEEP STERNAL STIMULATION BY OPENING EYES AND STATED 'WHAT?''DOES NOT FOLLOW COMMANDS.VITAL SIGNS TAKEN.RI=728/57 HR=70,TEMP=97.9,RR=18. Addendum: 04/20/19 at 0123 by CHIN JEAN RN WRONG PT
[2019-04-20] VITALS: BP 113/79
--- NOTE | 2019-04-20 02:00 | NUR ---
TELE/RN NOTES INCONTINENT OF URINE MIXED W/ STOOL,BED BATH DONE AND COMPLETE LINEN CHANGED.MONITOR SINUS ANDERSON.BP STABLE.OFFERS NO COMPLAINTS.DENIES CHEST PAIN.
[2019-04-20 04:00] VITALS: BP 119/88
[2019-04-20] MEDS: PIPERACILLIN /TAZOBACTAM 2.25 G in IV D5W 50 ML IV SCH ×3 (05:36→20:41)
--- NOTE | 2019-04-20 06:00 | NUR ---
TELE/RN NOTES VITAL SIGNS STABLE,REMAINS IN SINUS ANDERSON.HAD ANOTHER EPISODE OF V-TACH LASTING 2SECS ONLY.PT ASYMPTOMATIC.
[2019-04-20 07:20] LABS: BASOPHILS # (AUTO) 0.1 /CMM (0.0-0.2); BASOPHILS % (AUTO) 1.5 % (0.0-2.0); EOSINOPHILS % (AUTO) 2.9 % (0.0-6.0); HEMATOCRIT 43 % (39-51); HEMOGLOBIN 14.1 g/dL (13.5-17.5); LYMPHOCYTES # (AUTO) 0.7 /CMM (0.8-4.8); MEAN CORPUSCULAR HGB CONC 33 g/dl (31.0-36.0); MEAN CORPUSCULAR VOLUME 102 fL (80-96); MONOCYTES # (AUTO) 0.6 /CMM (0.1-1.30); MONOCYTES % (AUTO) 14.2 % (2.0-12.0); NEUTROPHILS # (AUTO) 2.8 /CMM (1.8-8.9); NEUTROPHILS % (AUTO) 64.4 % (43.0-81.0); PLATELET COUNT (AUTO) 243 /CMM (150-450); RED BLOOD CELL COUNT(AUTO) 4.16 MIL/uL (4.5-6.0); WHITE BLOOD COUNT (AUTO) 4.4 K/uL (4.3-11.0)
[2019-04-20 07:29] LABS: ALBUMIN 2.8 g/dL (3.4-5.0); BILIRUBIN,TOTAL 0.6 mg/dL (0.2-1.0); CALCIUM, SERUM 8.4 mg/dL (8.5-10.1); MAGNESIUM 1.8 mg/dL (1.8-2.4); PHOSPHORUS 2.9 mg/dL (2.5-4.9); POTASSIUM 3.8 mmol/L (3.5-5.1); TOTAL PROTEIN, SERUM 6.9 g/dL (6.4-8.2)
--- NOTE | 2019-04-20 07:30 | NUR ---
RN NOTES RECEIVED PATIENT IN BED, ASLEEP BUT EASILY AWAKEN BY VERBAL STIMULI, ABLE TO MAKE NEEDS KNOWN AND RESPONDS APPROPRIATELY, WITH NASAL CANNULA, OXYGEN AT 2 LPM, TOLERATING WELL, NO SOB NOTED AT THIS TIME. NO COMPLAINTS OF PAIN OF ANY KIND. PATIENT SINUS ANDERSON ON THE MONITOR WITH HR AT 52. IV ACCES NOTED ON THE RFA G 20 AND LAC G 18, BOTH IN PLACE, DRESSING INTACT AND FLUSHES WELL. WITH ONGOING IVF OF NS AT 75CC/HR. PATIENT ENCOURAGE TO VERBALIZE FEELINGS AD CONCERNS, CALL FOR HELP AND ASSISTANCE, SAFETY MEASURES OBSERVED AND MAINTAINED, SRX2, BED LOW AND LOCKED POSITION, CALL LIGHT PLAACED WITHIN REACH, WILL CONTINUE PATIENT CLOSELY
[2019-04-20 08:00] VITALS: BP 111/79
[2019-04-20] MEDS: ASPIRIN 81 MG TAB.CHEW PO SCH (08:33)
[2019-04-20] MEDS: LEVOTHYROXINE SODIUM 75 MCG TABLET PO SCH (08:33)
[2019-04-20] MEDS: MEGESTROL ACETATE SUSP 400 MG/10 ML UDC PO SCH ×2 (08:33→16:33)
[2019-04-20] MEDS: ENSURE ENLIVE CHOC 237 ML CAN PO SCH ×3 (08:36→16:34)
[2019-04-20] MEDS: MINERAL OIL/PETROLATUM,WHITE 120 GM JAR TP SCH (08:36)
[2019-04-20] MEDS: CLOTRIMAZOLE 1% 15 GM TUBE TP SCH ×2 (08:36→16:34)
[2019-04-20] MEDS: POTASSIUM CHLORIDE 20 MEQ TAB.PRT.SR PO SCH ×3 (09:38→11:22)
[2019-04-20] MEDS: IV NS 0.9% 1,000 ML IV PRN (11:22)
[2019-04-20 12:00] VITALS: BP 111/88
[2019-04-20 16:00] VITALS: BP 129/80
--- NOTE | 2019-04-20 17:00 | NUR ---
RN NOTES OBTAINED CONSENT FOR CTA FROM THE PATIENT
--- NOTE | 2019-04-20 19:00 | NUR ---
OIL PUMP STATION OPERATOR CHIEF OPENING NOTES RECEIVED PATIENT IN BED, AWAKE, A/OX4, ABLE TO MAKE NEEDS KNOWN. ON OXYGEN AT 2LPM, TOLERATING WELL, NO SOB OR RESPIRATORY DISTRESS NOTED. DENIES ANY PAIN AT THE MOMENT. ON TELE MONITOR SINUS ANDERSON WITH HR AT 50S. IV ACCES NOTED ON THE RFA G 20 AND LAC G 18, BOTH IN PLACE, DRESSING INTACT AND FLUSHES WELL. WITH ONGOING IVF OF NS [id number]/HR. PATIENT ENCOURAGE TO VERBALIZE FEELINGS AD CONCERNS, CALL FOR HELP AND ASSISTANCE. SAFETY MEASURES OBSERVED AND MAINTAINED; SIDE RAILS UP X2, BED LOW AND LOCKED POSITION, CALL LIGHT WITHIN REACH, BED ALARM ON. WILL CONT TO MONITOR PT.
--- NOTE | 2019-04-20 19:25 | NUR ---
RN NOTES ENDORSED FOR CONTINUITY OF CARE, NOT ON ANY FORM OF DISTRESS. ALL NURSING NEEDS ATTENDED AND MET. SAFETY MEASURES IN PLACE AT ALL TIMES. CALL LIGHT WITHIN REACH
[2019-04-20 20:00] VITALS: BP 107/76
[2019-04-21] VITALS (22 sets, daily range): BP systolic 18–156; BP diastolic 40–85
[2019-04-21] MEDS: IV NS 0.9% 1,000 ML IV PRN ×3 (01:44→19:49)
[2019-04-21 03:53] LABS: BASOPHILS % (AUTO) 0.7 % (0.0-2.0); EOSINOPHILS % (AUTO) 2.3 % (0.0-6.0); HEMATOCRIT 41 % (39-51); HEMOGLOBIN 13.9 g/dL (13.5-17.5); LYMPHOCYTES # (AUTO) 0.9 /CMM (0.8-4.8); LYMPHOCYTES % (AUTO) 13.6 % (20.0-44.0); MEAN CORPUSCULAR HGB CONC 34 g/dl (31.0-36.0); MEAN CORPUSCULAR VOLUME 102 fL (80-96); MONOCYTES # (AUTO) 0.8 /CMM (0.1-1.30); MONOCYTES % (AUTO) 11.8 % (2.0-12.0); NEUTROPHILS # (AUTO) 4.6 /CMM (1.8-8.9); NEUTROPHILS % (AUTO) 71.6 % (43.0-81.0); PLATELET COUNT (AUTO) 248 /CMM (150-450); RED BLOOD CELL COUNT(AUTO) 4.07 MIL/uL (4.5-6.0); WHITE BLOOD COUNT (AUTO) 6.5 K/uL (4.3-11.0)
[2019-04-21 04:08] LABS: ALBUMIN 2.8 g/dL (3.4-5.0); BILIRUBIN,TOTAL 0.4 mg/dL (0.2-1.0); CALCIUM, SERUM 8.7 mg/dL (8.5-10.1); CREATININE 1.8 mg/dL (0.6-1.3); MAGNESIUM 1.7 mg/dL (1.8-2.4); POTASSIUM 4.3 mmol/L (3.5-5.1); TOTAL PROTEIN, SERUM 6.8 g/dL (6.4-8.2)
[2019-04-21] MEDS: PIPERACILLIN /TAZOBACTAM 2.25 G in IV D5W 50 ML IV SCH ×3 (05:30→21:00)
[2019-04-21 06:06] LABS: *SPE A/G RATIO 0.9 (0.7-1.7); *SPE ALBUMIN 3.2 g/dL (2.9-4.4); *SPE ALPHA-1-GLOBULIN 0.3 g/dL (0.0-0.4); *SPE ALPHA-2-GLOBULIN 1.1 g/dL (0.4-1.0); *SPE BETA GLOBULIN 0.9 g/dL (0.7-1.3); *SPE GLOBULIN, TOTAL 3.7 g/dL (2.2-3.9); *SPE M-SPIKE 0.8 g/dL (Not Observed); *SPEGAMMA GLOBULIN 1.3 g/dL (0.4-1.8)
[2019-04-21] MEDS ORDERED: IODIXANOL 320MG/ML 100 ML IV ONE ×2 (06:22→07:19)
--- NOTE | 2019-04-21 06:35 | NUR ---
FLOTATION TENDER HELPER NOTES PATIENT LEFT THE UNIT WITH REGISTERED NURSES TO ROUSTABOUT HAND. PATIENT STABLE. WILL ENDORSE TO AM RN.
[2019-04-21] MEDS ORDERED: LIDOCAINE HCL/PF 1% 30 ML SDV ONE (06:50)
[2019-04-21] MEDS ORDERED: FENTANYL PF 100MCG/2ML AMPUL ONE (06:53)
[2019-04-21] MEDS ORDERED: HEPARIN SODIUM, PORCINE 5000 UNITS/1 ML VIAL ONE (06:53)
[2019-04-21] MEDS ORDERED: NITROGLYCERIN ICAR 1,000 MCG/10 ML VIAL ICAR ONE (06:53)
[2019-04-21] MEDS ORDERED: MIDAZOLAM HCL 2 MG/2ML VIAL ONE (06:53)
[2019-04-21] MEDS ORDERED: VERAPAMIL HCL IV 5 MG/2 ML VIAL ONE (06:53)
[2019-04-21] MEDS ORDERED: IV NS 0.9% 1,000 ML ONE (06:55)
[2019-04-21] MEDS ORDERED: IV SET PRIMARY 1 EA INFUS.SET MC ONE (07:09)
--- NOTE | 2019-04-21 07:18 | NUR ---
STEERER NOTES PATIENT STILL IN MANAGER TALENT ACQUISITION. ENDORSED TO AM RN FOR RENEE.
[2019-04-21] MEDS: LEVOTHYROXINE SODIUM 75 MCG TABLET PO SCH (07:30)
--- NOTE | 2019-04-21 08:30 | NUR ---
BAKING FACTORY WORKER NOTES BROUGHT PT IN FROM VEGETABLE FARM MANAGER. SP LEFT HEART CATHETERIZATION WITH SELECTIVE LEFT AND RIGHT CORONARY ANGIOGRAPHY UNDER DR BARRON. PT A/OX4. PLACED ON 02 VIA NC AT 2LPM. NO RESPIRATORY DISTRESS NOTED. NO SOB NOTED. DENIES ANY PAIN. CONNECTED TO MONITOR. HOB ELEVATED AT 30 DEGREES. TR BAND ON RIGHT WRIST IN PLACE. NO SIGNS OF BLEEDING NOTED. NO CIRCULATORY IMPAIRMENT NOTED. WILL FOLLOW PROTOCOL. IV LINES IN PLACE. FLUSHED WITH NS. DR SOMERS AT BEDSIDE. WILL FOLLOW POST CARDIAC CATH ORDERS. WILL CLOSELY MONITOR.
[2019-04-21] MEDS ORDERED: Magnesium 1GM/D5W 100ML PREMIX 100 ML IV SCH (09:46)
[2019-04-21] MEDS: MEGESTROL ACETATE SUSP 400 MG/10 ML UDC PO SCH ×2 (09:47→17:04)
[2019-04-21] MEDS: ASPIRIN 81 MG TAB.CHEW PO SCH (09:47)
[2019-04-21] MEDS: ENSURE ENLIVE CHOC 237 ML CAN PO SCH ×3 (09:47→17:01)
--- NOTE | 2019-04-21 10:15 | NUR ---
RN NOTES TR BAND REMOVED, GUIDELINES FOLLOWED. NO BLEEDING NOTED. COVERED WITH TEGADERM. GOOD RADIAL PULSE NOTED. GOOD CAPILLARY RETURN NOTED. ABLE TO MOVE RIGHT HAND WITHOUT DIFFICULTY/PAIN. NO CIRCULATORY IMPAIRMENT NOTED. WILL CONTINUE TO MONITOR
[2019-04-21] MEDS ORDERED: K PHOS NEUTRAL 250 MG TABLET PO ONE (11:30)
[2019-04-21] MEDS: MINERAL OIL/PETROLATUM,WHITE 120 GM JAR TP SCH (12:42)
[2019-04-21] MEDS: CLOTRIMAZOLE 1% 15 GM TUBE TP SCH ×2 (12:42→17:01)
--- NOTE | 2019-04-21 18:35 | NUR ---
RN CLOSING NOTES PT STABLE. NO RESPIRATORY DISTRESS NOTED. NO SOB NOTED. DENIES ANY WAY. PT COMFORTABLE. CALL LIGHT WITHIN REACH. WILL ENDORSE FOR CONTINUITY OF CARE
--- NOTE | 2019-04-21 20:00 | NUR ---
Received patient A/O X 4.VS stable.SB 50's per tele monitoring.S/P Left Heart Catheterization. Right wrist with Tegaderm intact.No bleeding or hematoma noted.Pulses palpable with brisk capillary refill.Patient denies chest pain or sob.O2 2L NC saturation 97%.IVF infusing well. Safety measures implemented.Encouraged patient to use call light for assistance.Kept at bedside within easy reach.Continue monitoring.
--- NOTE | 2019-04-21 23:00 | NUR ---
RECEIVED BEDSIDE REPORT FROM ZANE YORK FOR RENEE. PATIENT AWAKE, A/OX4. STABLE. TRANSFERRED TO PRAKASH WITH CHARGE IN ROOM 108 VIA ACLS PROTOCOL.
--- NOTE | 2019-04-21 23:00 | NUR ---
Patient awake alert and oriented in no acute distress.Patient pickers material handlers by ZANE Carlton and ZANE Mak from PRAKASH and patient transferred to 108 via bed in stable condition.Report given to Aubree for continuity of care.
--- NOTE | 2019-04-21 23:11 | NUR ---
CINDER SNAPPER NOTES BROUGHT PATIENT IN FROM ICU. PATIENT A/OX4. ORIENTED TO ROOM. PLACED ON OXYGEN VIA NC AT 2LPM, TOLERATING WELL, NO SOB OR RESPIRATORY DISTRESS NOTED. DENIES ANY PAIN. CONNECTED TO MONITOR. ON TELE MONITOR SB WITH HR 50S. RIGHT WRIST, NO SIGNS OF BLEEDING NOTED, NO CIRCULATORY IMPAIRMENT NOTED. IV SITE LEFT FA 20G AND LEFT AC 18G, BOTH FLUSHING AND PATENT, IV FLUIDS RUNNING ORDERED, NO INFILTRATION NOTED. SAFETY MEASURES IN PLACE; HOB ELEVATED, SIDE RAILS UP X2, CALL LIGHT WITHIN REACH, BED LOCKED AND IN LOWEST POSITION. WILL CONT TO MONITOR.
[2019-04-22] VITALS: BP 112/57
[2019-04-22 04:00] VITALS: BP 115/69
[2019-04-22 05:07] LABS: *SPE A/G RATIO 0.9 (0.7-1.7); *SPE ALBUMIN 2.9 g/dL (2.9-4.4); *SPE ALPHA-1-GLOBULIN 0.3 g/dL (0.0-0.4); *SPE BETA GLOBULIN 0.9 g/dL (0.7-1.3); *SPE GLOBULIN, TOTAL 3.3 g/dL (2.2-3.9); *SPE M-SPIKE 0.6 g/dL (Not Observed); *SPEGAMMA GLOBULIN 1.1 g/dL (0.4-1.8)
[2019-04-22] MEDS: PIPERACILLIN /TAZOBACTAM 2.25 G in IV D5W 50 ML IV SCH ×3 (05:26→20:12)
--- NOTE | 2019-04-22 07:20 | NUR ---
MARKETING COMPLIANCE MANAGER CLOSING NOTES PATIENT IN BED, A/OX4. ON OXYGEN VIA NC AT 2LPM, TOLERATING WELL, NO SOB OR RESPIRATORY DISTRESS NOTED. DENIES ANY PAIN. ON TELE MONITOR SB WITH HR 50S. IV SITE LEFT FA 20G AND LEFT AC 18G, BOTH FLUSHING AND PATENT, IV FLUIDS RUNNING ORDERED, NO INFILTRATION NOTED. ALL MD ORDERS ATTENDED, ALL NEEDS ANTICIPATED AND MET. SAFETY MEASURES IN PLACE; HOB ELEVATED, SIDE RAILS UP X2, CALL LIGHT WITHIN REACH, BED LOCKED AND IN LOWEST POSITION. ENDORSED TO AM RN FOR RENEE.
[2019-04-22 07:57] LABS: CALCIUM, SERUM 7.5 mg/dL (8.5-10.1); CREATININE 1.3 mg/dL (0.6-1.3)
[2019-04-22 08:00] VITALS: BP 108/75
[2019-04-22 08:38] LABS: MAGNESIUM 1.3 mg/dL (1.8-2.4); PHOSPHORUS 1.6 mg/dL (2.5-4.9)
[2019-04-22] MEDS: MEGESTROL ACETATE SUSP 400 MG/10 ML UDC PO SCH ×2 (09:19→17:46)
[2019-04-22] MEDS: IV NS 0.9% 1,000 ML IV PRN ×2 (09:19→21:35)
[2019-04-22] MEDS: MINERAL OIL/PETROLATUM,WHITE 120 GM JAR TP SCH (09:19)
[2019-04-22] MEDS: LEVOTHYROXINE SODIUM 75 MCG TABLET PO SCH (09:22)
[2019-04-22] MEDS: ASPIRIN 81 MG TAB.CHEW PO SCH (09:23)
[2019-04-22] MEDS: ENSURE ENLIVE CHOC 237 ML CAN PO SCH ×3 (09:27→17:46)
[2019-04-22] MEDS: CLOTRIMAZOLE 1% 15 GM TUBE TP SCH ×2 (09:27→17:00)
[2019-04-22] MEDS: Magnesium 1GM/D5W 100ML PREMIX 100 ML IV SCH ×4 (11:04→15:18)
--- NOTE | 2019-04-22 11:51 | NUR ---
RN NOTE CALLED DR BERNARD'S OFFICE AND ASKED REINIER TO RELAY MESSAGE FOR DR BERNARD TO CALL PT'S KEYA DESHPANDE AT [phone]. SHE WANTED TO DISCUSS THE CARDIAC CATH RESULT.
[2019-04-22 12:00] VITALS: BP 110/69
[2019-04-22] MEDS ORDERED: K PHOS NEUTRAL 250 MG TABLET PO ONE (13:00)
[2019-04-22 16:00] VITALS: BP 112/72
--- NOTE | 2019-04-22 19:30 | NUR ---
RETAIL SALESMAN NOTE: RECEIVED PT ON BED ALERT AND ORIENTED X3. ABLE TO MAKE NEEDS KNOWN. NO APPARENT DISTRESS NOTED. DENIES PAIN AND DISCOMFORT AT THIS TIME. ON 2LPM NASAL CANNULA, NO SOB NOTED. ON TELE MONITOR SINUS ANDERSON HR 53BPM. IV ON LEFT FOREARM #20 INTACT AND PATENT, IVF INFUSING WELL. KEPT CLEAN, DRY AND COMFORTABLE. CALL LIGHT PLACED WITHIN REACH. WILL CONTINUE TO MONITOR PT.
[2019-04-22 20:00] VITALS: BP 133/98
[2019-04-23] VITALS: BP 112/64
[2019-04-23 04:00] VITALS: BP 129/81
[2019-04-23] MEDS: PIPERACILLIN /TAZOBACTAM 2.25 G in IV D5W 50 ML IV SCH (04:32)
[2019-04-23 06:45] LABS: CALCIUM, SERUM 7.4 mg/dL (8.5-10.1); CREATININE 1.3 mg/dL (0.6-1.3); MAGNESIUM 1.7 mg/dL (1.8-2.4); PHOSPHORUS 1.3 mg/dL (2.5-4.9)
--- NOTE | 2019-04-23 06:45 | NUR ---
PATIENT COORDINATOR NOTE: NO CHANGES NOTED THROUGHOUT THE SHIFT. NO APPARENT DISTRESS NOTED. DENIES PAIN AND DISCOMFORT AT THIS TIME. ON 2LPM NASAL CANNULA, NO SOB NOTED. IV ON RIGHT FOREARM #20 INTACT AND PATENT, IVF INFUSING WELL. ON TELE MONITOR SINUS ANDERSON HR 52BPM. KEPT CLEAN, DRY AND COMFORTABLE. SAFETY AND FALL PRECAUTIONS OBSERVED AND MAINTAINED. WILL ENDORSE TO DAY SHIFT RN FOR CONTINUITY OF CARE
--- NOTE | 2019-04-23 07:40 | NUR ---
STRAIGHTEDGE WORKER OPENING NOTE: RECEIVED REPORT FROM PM NURSE.PT ON BED ALERT AND ORIENTED X3. ABLE TO MAKE NEEDS KNOWN. NO APPARENT DISTRESS NOTED. DENIES PAIN AND DISCOMFORT AT THIS TIME. ON 2LPM NASAL CANNULA, NO SOB NOTED. ON TELE MONITOR SINUS ANDERSON HR 53BPM. IV ON LEFT FOREARM #20 INTACT AND PATENT, IVF INFUSING WELL. KEPT CLEAN, DRY AND COMFORTABLE. CALL LIGHT PLACED WITHIN REACH. WILL CONTINUE TO MONITOR PT.
[2019-04-23] MEDS: LEVOTHYROXINE SODIUM 75 MCG TABLET PO SCH (07:55)
[2019-04-23 08:00] VITALS: BP 116/78
[2019-04-23] MEDS: MEGESTROL ACETATE SUSP 400 MG/10 ML UDC PO SCH ×2 (08:31→16:23)
[2019-04-23] MEDS: ASPIRIN 81 MG TAB.CHEW PO SCH (08:31)
[2019-04-23] MEDS: CLOTRIMAZOLE 1% 15 GM TUBE TP SCH ×2 (08:33→16:25)
[2019-04-23] MEDS: MINERAL OIL/PETROLATUM,WHITE 120 GM JAR TP SCH (08:33)
[2019-04-23] MEDS: IV NS 0.9% 1,000 ML IV PRN (08:35)
[2019-04-23] MEDS: Magnesium 1GM/D5W 100ML PREMIX 100 ML IV SCH ×2 (09:11→10:54)
[2019-04-23] MEDS: NEUTRA PHOS 1 POWD.PACKET PO SCH ×2 (09:12→16:23)
[2019-04-23] MEDS: ENSURE ENLIVE CHOC 237 ML CAN PO SCH ×3 (09:22→16:50)
[2019-04-23 12:00] VITALS: BP 125/81
[2019-04-23 16:00] VITALS: BP 125/80
--- NOTE | 2019-04-23 19:25 | NUR ---
SAMPLE FINISHER OPENING NOTES Received patient, A/O x4, awake on bed. On RA, no SOB/respiratory distress noted. On tele monitor with Sinus Bradycardia noted, patient denies any discomfort at this time. Patient noted ambulatory with walker, with stand by assistance noted. Kept on bed clean, dry and comfortable. On fall precautions, call light within easy reach. Will continue to monitor accordingly.
--- NOTE | 2019-04-23 19:30 | NUR ---
COMMISSARY PRODUCTION SUPERVISOR CLOSING NOTE: PT ON BED ALERT AND ORIENTED X3. ABLE TO MAKE NEEDS KNOWN. NO APPARENT DISTRESS NOTED. DENIES PAIN AND DISCOMFORT AT THIS TIME. ON 2LPM NASAL CANNULA, NO SOB NOTED. ON TELE MONITOR SINUS ANDERSON HR 53BPM. IV ON LEFT FOREARM #20 INTACT AND PATENT, IVF INFUSING WELL. KEPT CLEAN, DRY AND COMFORTABLE. CALL LIGHT PLACED WITHIN REACH. [facility] AT BEDSIDE.ENDORSED TO PM NURSE FOR RENEE.
[2019-04-23 20:00] VITALS: BP 112/78
[2019-04-24] VITALS: BP 111/76
[2019-04-24 04:00] VITALS: BP 124/87
[2019-04-24] MEDS: LEVOTHYROXINE SODIUM 75 MCG TABLET PO SCH (06:34)
--- NOTE | 2019-04-24 07:04 | NUR ---
ASSOCIATE PROFESSOR OF MATHEMATICS CLOSING NOTES Patient asleep, easily awaken. On RA, no SOB/respiratory distress noted. Ambulatory to bathroom with stand by assistance at all time. On tele monitor with Sinus Rhythm noted. All nursing needs attended. Due meds given as ordered, no ASE noted. Kept on bed clean, dry and comfortable. Call light within easy reach. On fall precautions. Endorsed to the next shift.
[2019-04-24 08:00] VITALS: BP 117/77
[2019-04-24] MEDS: ENSURE ENLIVE CHOC 237 ML CAN PO SCH ×3 (08:46→17:19)
[2019-04-24] MEDS: ASPIRIN 81 MG TAB.CHEW PO SCH (08:47)
[2019-04-24] MEDS: MEGESTROL ACETATE SUSP 400 MG/10 ML UDC PO SCH ×2 (08:47→17:18)
[2019-04-24] MEDS: MINERAL OIL/PETROLATUM,WHITE 120 GM JAR TP SCH (08:48)
[2019-04-24] MEDS: CLOTRIMAZOLE 1% 15 GM TUBE TP SCH ×2 (08:49→17:19)
[2019-04-24 12:00] VITALS: BP 123/76
[2019-04-24] MEDS ORDERED: Sodium Phosphate 15 MMOL in IV D5W 250 ML IV ONE (14:00)
[2019-04-24 16:00] VITALS: BP 116/68
--- NOTE | 2019-04-24 19:28 | NUR ---
RN NOTE PT IS WAITING TO BE TRANSFERRED TO [facility], REPORT GIVEN TO FEDERICA DEGROOT, PHONE [phone], PAPERWORK COMPLETED AND SIGNED, BELONGINGS LIST SIGNED, AND AT BEDSIDE. EXIT CARE DONE, DISCHARGE INSTRUCTIONS PROVIDE, TEACHING DONE TO PT, PT VERBALIZED UNDERSTANDING. AMBULANCE HAS NOT ARRIVED YET. ENDORSED TO NIGHT NURSE. Addendum: 04/24/19 at 1953 by CHASE RUIZ RN REPORT GIVEN TO JORGE AT 1700, NOT FEDERICA.
[2019-04-24 20:00] VITALS: BP_SYST 120; BP_SYST 132; BP_DIAS 79; BP_DIAS 87
--- NOTE | 2019-04-24 20:30 | NUR ---
RN NOTE PATIENT LEFT IN STABLE CONDITION TO [facility] FOR HIGHER LEVEL OF CARE, PATIENT IS ALERT/ORIENTED X 4, AMBULATES WITH WALKER, NO DISTRESS NOTED, SR ON THE MONITOR, ROOM AIR SPO2 98%, VITAL SIGNS STABLE, NO PAIN OR DISCOMFORT NOTED, LEFT FOREARM 20 GAUGE IS INTACT, NO S/S OF INFECTION/INFILTRATION NOTED, LEFT CHEST WALL PORT-A-CATH, NO REDNESS NOTED, INTACT, ALL SKIN PICTURES TAKEN BY AM SHIFT AND IN THE CHART, BELONGING'S LIST SIGNED AND IN THE CHART, PATIENT IS GOING TO [facility] WITH [facility]
== END 2019-04-24 20:30 | disposition short-term general hospital (02) | DRG 286 ==
LOC: ER 16:59 → TELE1 20:24 → TELE-TD 21:29 → TELE1 04-19 10:01 → ICU 04-21 08:25 → TELE-TD 04-21 23:00 → TELE1 04-21 23:57
PROVIDERS: ADMIT Registered Nurse; ATTEND Nurse Practitioner Acute Care
PROC: 4A023N7 Measurement of Cardiac Sampling and Pressure, Left Heart, Percutaneous Approach (ICD-10-PCS; principal; 2019-04-21)
PROC: B2111ZZ Fluoroscopy of Multiple Coronary Arteries using Low Osmolar Contrast (ICD-10-PCS; 2019-04-21)
DX: I47.2 Ventricular tachycardia (principal); J15.6 Pneumonia due to other Gram-negative bacteria; N17.0 Acute kidney failure with tubular necrosis; D68.59 Other primary thrombophilia; C79.51 Secondary malignant neoplasm of bone; I45.81 Long QT syndrome; I48.92 Unspecified atrial flutter; I49.5 Sick sinus syndrome; I48.91 Unspecified atrial fibrillation; E86.0 Dehydration; N18.9 Chronic kidney disease, unspecified; Z90.49 Acquired absence of other specified parts of digestive tract; Z92.21 Personal history of antineoplastic chemotherapy; S01.81XA Laceration without foreign body of other part of head, initial encounter; Z85.850 Personal history of malignant neoplasm of thyroid; E83.42 Hypomagnesemia; E89.0 Postprocedural hypothyroidism; Z87.891 Personal history of nicotine dependence; Z79.899 Other long term (current) drug therapy; M48.00 Spinal stenosis, site unspecified; Z83.3 Family history of diabetes mellitus; D89.9 Disorder involving the immune mechanism, unspecified; E83.39 Other disorders of phosphorus metabolism; Z74.09 Other reduced mobility; E87.6 Hypokalemia; I25.10 Atherosclerotic heart disease of native coronary artery without angina pectoris; F12.90 Cannabis use, unspecified, uncomplicated; G90.8 Other disorders of autonomic nervous system; T45.1X5A Adverse effect of antineoplastic and immunosuppressive drugs, initial encounter; Y92.009 Unspecified place in unspecified non-institutional (private) residence as the place of occurrence of the external cause; I67.2 Cerebral atherosclerosis; Z85.038 Personal history of other malignant neoplasm of large intestine; R19.7 Diarrhea, unspecified; Z85.72 Personal history of non-Hodgkin lymphomas; W01.0XXA Fall on same level from slipping, tripping and stumbling without subsequent striking against object, initial encounter; Y92.002 Bathroom of unspecified non-institutional (private) residence as the place of occurrence of the external cause
CPT/HCPCS: 36415; 70450-TC; 71045-TC; 72125-TC; 80048-TC; 80053-TC; 80061-TC; 80076-TC; 82378; 82550-TC; 82962-TC; 83735-TC; 83970; 84100-TC; 84155; 84165; 84439-TC; 84443-TC; 84484-TC; 85025-TC; 85610-TC; 85730-TC; 87081-TC; 90715; 93307-TC; 93452; 93880-TC; 94799-TC; 97116-TC; 97530-TC; A6403; A9563; G0378; J1644; J2250; J2543; J3010; J3475; J3480; J3490; J7030; J7050; J7060

== ENCOUNTER 2019-06-07 11:48 | Inpatient (IN) | payer MEDICARE, MEDICAID ==
[~2019-06-07] VITALS: Ht 182.9 cm; Wt 56.2 kg
--- NOTE | 2019-06-07 11:50 | NUR ---
"[id number] ONCOL[facility]Y FOR WEAKNESS AND SOB. R/O SEPSIS" PT [id number], -SOB, NAD NOTED, VSS, PENDING MD BAHENA
[2019-06-07] MEDS ORDERED: PIPERACILLIN /TAZOBACTAM 3.375 G in IV D5W 50 ML IV ONE (12:30)
[2019-06-07] MEDS ORDERED: IV NS 0.9% 500 ML BAG IV ONE (12:30)
[2019-06-07] MEDS ORDERED: VANCOMYCIN 1 GM in IV D5W 250 ML IV ONE (12:30)
[2019-06-07 12:43] LABS: BASOPHILS # (AUTO) 0.1 /CMM (0.0-0.2); BASOPHILS % (AUTO) 0.9 % (0.0-2.0); EOSINOPHILS % (AUTO) 2.8 % (0.0-6.0); HEMATOCRIT 54 % (39-51); HEMOGLOBIN 17.4 g/dL (13.5-17.5); LYMPHOCYTES # (AUTO) 1.3 /CMM (0.8-4.8); LYMPHOCYTES % (AUTO) 11.6 % (20.0-44.0); MEAN CORPUSCULAR HGB CONC 32 g/dl (31.0-36.0); MEAN CORPUSCULAR VOLUME 103 fL (80-96); MONOCYTES # (AUTO) 0.4 /CMM (0.1-1.30); MONOCYTES % (AUTO) 3.4 % (2.0-12.0); NEUTROPHILS # (AUTO) 9.2 /CMM (1.8-8.9); NEUTROPHILS % (AUTO) 81.3 % (43.0-81.0); PLATELET COUNT (AUTO) 284 /CMM (150-450); RED BLOOD CELL COUNT(AUTO) 5.22 MIL/uL (4.5-6.0); WHITE BLOOD COUNT (AUTO) 11.4 K/uL (4.3-11.0)
[2019-06-07 13:00] LABS: CALCIUM, SERUM 8.9 mg/dL (8.5-10.1); CARBON DIOXIDE 20 mmol/L (21-32); CHLORIDE 102 mmol/L (98-107); CREATININE 2.6 mg/dL (0.6-1.3); GLUCOSE 115 mg/dL (74-106); POTASSIUM 3.6 mmol/L (3.5-5.1); SODIUM SERUM 134 mmol/L (136-145); UREA NITROGEN, BLOOD 50 mg/dL (7-18)
[2019-06-07 13:05] LABS: ALANINE AMINOTRANSFERASE 80 U/L (12-78); ALBUMIN 3.4 g/dL (3.4-5.0); ALKALINE PHOSPHATASE 126 U/L (46-116); ASPARTATE AMINOTRANSFERASE 55 U/L (15-37); BILIRUBIN,DIRECT 0.2 mg/dL (0.0-0.2); BILIRUBIN,TOTAL 0.7 mg/dL (0.2-1.0); TOTAL PROTEIN, SERUM 7.8 g/dL (6.4-8.2)
--- NOTE | 2019-06-07 13:34 | NUR ---
GIVEN PATIENT URINAL AT BEDSIDE FOR URINE SAMPLE, UNABLE TO PROVIDE AT THIS TIME, DR FRANKLIN AWARE.
--- NOTE | 2019-06-07 13:56 | NUR ---
CALLED FOR [facility] [place] BED
--- NOTE | 2019-06-07 14:10 | NUR ---
URINE COLLECTED AND SENT TO LAB
--- NOTE | 2019-06-07 14:12 | NUR ---
ROOM ASSIGNED [id number]
[2019-06-07 14:24] LABS: BILIRUBIN,URINE Negative (NEGATIVE); BLOOD, URINE Negative Ery/uL (NEGATIVE); COLOR,URINE Yellow (YELLOW); KETONES,URINE Negative (NEGATIVE); LEUKOCYTE ESTERASE ,URINE Negative (NEGATIVE); NITRITE, URINE Negative (NEGATIVE); PH,URINE 5.5 (5.0-8.0); PROTEIN,URINE 100 mg/dl (NEGATIVE); UGLUCOSE Negative (NEGATIVE); UROBILINOGEN,URINE 0.2 EU/dL (0.2)
[2019-06-07 14:28] LABS: APPEARANCE,URINE CLEAR (CLEAR)
[2019-06-07] MEDS ORDERED: APIX5TAB PO (14:30)
[2019-06-07] MEDS ORDERED: ATEN25TA PO (14:30)
[2019-06-07] MEDS ORDERED: LEVO100T9 PO (14:30)
[2019-06-07] MEDS ORDERED: [UNRECOGNIZED DRUG - CODE] PO (14:30)
[2019-06-07] MEDS ORDERED: HYDROCODONE/APAP 5/325MG 1 EACH TABLET PO PRN (15:00)
[2019-06-07] MEDS ORDERED: MAG HYDROX/AL HYDROX/SIMETH 30 ML UDC PO PRN (15:00)
[2019-06-07] MEDS ORDERED: MAGNESIUM HYDROXIDE 30 ML UDC PO PRN (15:00)
[2019-06-07] MEDS ORDERED: Z GUARD REMEDY 2 OZ OINT TP PRN (15:00)
[2019-06-07] MEDS ORDERED: MORPHINE SULFATE INJ 2 MG/ML DISP.SYRIN IV PRN (15:00)
[2019-06-07] MEDS ORDERED: ONDANSETRON HCL/PF 4 MG/2 ML VIAL IVP PRN (15:00)
[2019-06-07] MEDS ORDERED: ACETAMINOPHEN 325 MG TABLET PO PRN (15:00)
--- NOTE | 2019-06-07 15:13 | NUR ---
REPORT GIVEN TO FEDERICO DEGROOT FOR RENEE PT WILL TRANSPORTED TO 3RD FLOOR
--- NOTE | 2019-06-07 15:15 | NUR ---
pt. admitted here from er.easily agitated,vs stable.states sob,but pox good vanco still running from er.orders in computer from dr. levine.
[2019-06-07 16:00] VITALS: BP 104/79
--- NOTE | 2019-06-07 17:30 | NUR ---
pt. refusing to answer questions,states we can find out info from md.photos taken of skin.
[2019-06-07] MEDS: IV NS 0.9% 1,000 ML IV PRN (17:40)
--- NOTE | 2019-06-07 18:00 | NUR ---
iv hooked up.
--- NOTE | 2019-06-07 19:20 | NUR ---
MS RN OPENING NOTES Received patient asleep, easily awaken. On RA, no SOB/respiratory distress noted. No s/sx of discomfort noted at this time. With peripheral IV line with NS infusing well @ 100 ml/hr as ordered, no s/sx of infiltration noted. Kept on bed clean, dry and comfortable. Call light within easy reach. On fall precautions. Will continue to monitor accordingly.
[2019-06-07 20:00] VITALS: BP 102/85
--- NOTE | 2019-06-07 20:38 | NUR ---
HEAD WAITER/WAITRESS BANQUET NOTES Patient on telemetry level of care. Put on tele monitor. A-pacing noted. Patient claimed he is on Eloquis daily every morning. Will follow up with MD.
[2019-06-07] MEDS ORDERED: ZOSYN IVPB 2.25 G in IV D5W 50ml IV ONE (22:00)
[2019-06-07] MEDS ORDERED: PIPERACILLIN /TAZOBACTAM 2.25 G VIAL IV ONE (22:06)
[2019-06-08] VITALS: BP 100/75
[2019-06-08] MEDS: IV NS 0.9% 1,000 ML IV PRN ×2 (03:07→16:23)
[2019-06-08 04:00] VITALS: BP 105/76
[2019-06-08] MEDS ORDERED: PIPERACILLIN /TAZOBACTAM 2.25 G VIAL IV ONE (04:02)
[2019-06-08] MEDS: ZOSYN IVPB 2.25 G in IV D5W 50ml IV SCH ×3 (04:03→20:48)
--- NOTE | 2019-06-08 06:21 | NUR ---
HOSPITAL EDUCATION COORDINATOR CLOSING NOTES Patient on bed asleep, on RA, no SOB/respiratory distress noted. No new complaints made. All nursing needs attended. All due meds given as ordered. With Vanco dosing to F/U with pharmacy. Afebrile the whole shift. Kept on bed clean, dry and comfortable. Call light within easy reach. On fall precautions. On tele monitor with A-Pacing noted. For wound consult. Endorsed to the next shift.
[2019-06-08 06:59] LABS: BASOPHILS # (AUTO) 0.1 /CMM (0.0-0.2); BASOPHILS % (AUTO) 1.2 % (0.0-2.0); EOSINOPHILS % (AUTO) 4.8 % (0.0-6.0); HEMATOCRIT 48 % (39-51); HEMOGLOBIN 15.5 g/dL (13.5-17.5); LYMPHOCYTES # (AUTO) 1.1 /CMM (0.8-4.8); LYMPHOCYTES % (AUTO) 11.3 % (20.0-44.0); MEAN CORPUSCULAR HGB CONC 33 g/dl (31.0-36.0); MEAN CORPUSCULAR VOLUME 101 fL (80-96); MONOCYTES # (AUTO) 0.8 /CMM (0.1-1.30); MONOCYTES % (AUTO) 7.6 % (2.0-12.0); NEUTROPHILS # (AUTO) 7.6 /CMM (1.8-8.9); NEUTROPHILS % (AUTO) 75.1 % (43.0-81.0); PLATELET COUNT (AUTO) 248 /CMM (150-450); RED BLOOD CELL COUNT(AUTO) 4.69 MIL/uL (4.5-6.0); WHITE BLOOD COUNT (AUTO) 10.2 K/uL (4.3-11.0)
[2019-06-08 07:31] LABS: CALCIUM, SERUM 7.9 mg/dL (8.5-10.1); CREATININE 2.1 mg/dL (0.6-1.3); MAGNESIUM 1.7 mg/dL (1.8-2.4); POTASSIUM 3.3 mmol/L (3.5-5.1)
[2019-06-08] MEDS ORDERED: FEE PK DOSING 1 MIN EA MC ONE (07:58)
[2019-06-08 08:00] VITALS: BP 103/65
--- NOTE | 2019-06-08 08:00 | NUR ---
COPY MANAGER AM NOTES Patient on bed asleep, on RA, no SOB/respiratory distress/pain noted. No new complaints made.With Vanco dosing to F/U with pharmacy. Afebrile the whole shift. Kept on bed clean, dry and comfortable. Call light within easy reach. On fall precautions. On tele monitor with A-Pacing noted. For wound consult.
[2019-06-08] MEDS ORDERED: Magnesium 1GM/D5W 100ML PREMIX 100 ML IV SCH (09:42)
--- NOTE | 2019-06-08 10:28 | NUR ---
WOUND CARE CONSULT: PT PRESENTS WITH RASH AND INCONTINENCE ASSOCIATED SKIN DAMAGE TO [id number] AND PERINEUM, DRY SKIN TO EXTREMITIES WITH DRY SCABS AND DRY ABRASION TO RT EYEBROW AREA, PRESENT ON ADMISSION. RECOMMENDATIONS MADE FOR SKIN PROTECTION AND CARE. DISCUSSED WITH NURSING STAFF. PT INDEPENDENT WITH BED MOBILITY BUT INCONTINENT. WILL SEE PRN. REED IN AGREEMENT WITH PLAN OF CARE. CURRENT ANETA SCORE IS 18. Addendum: 06/08/19 at 1030 by NAGA BLACK WNDNU Amended: Links added.
[2019-06-08] MEDS ORDERED: POTASSIUM CHLORIDE 10 MEQ TABLET.SA PO ONE (10:30)
[2019-06-08] MEDS: MINERAL OIL/PETROLATUM,WHITE 120 GM JAR TP SCH (10:30)
[2019-06-08] MEDS ORDERED: VANCOMYCIN 500 MG in IV D5W 100 ML IV SCH (14:00)
[2019-06-08 16:00] VITALS: BP 101/74
--- NOTE | 2019-06-08 16:23 | NUR ---
OFFERED FOR PT TO HAVE CONDOM CATHETER 3X DUE TO SACRAL REDNESS AREA BUT PT REFUSED.
[2019-06-08] MEDS: CLOTRIMAZOLE 1% 15 GM TUBE TP SCH (16:43)
--- NOTE | 2019-06-08 17:03 | NUR ---
EUCERIN CREAM NOT AVAILABLE AT THIS TIME AND WILL BE DELIVERED TOMORROW PER PHARMACISTBEAU.
--- NOTE | 2019-06-08 17:13 | NUR ---
INFORMED DR FORTUNE TO DO PT'S MED RECON
--- NOTE | 2019-06-08 19:12 | NUR ---
PT RESTING IN BED REFUSING TO BE BOTHERED.PT IS GRUMPY AT TIMES DENYING ANY DIARRHEAL EPISODE IN OUR SHIFT.WITH ONGOING IVF NS AT 100 ML/HR INFUSING WELL.CALL LIGHT PLACED WITHIN REACH.
[2019-06-08 20:00] VITALS: BP 115/80
[2019-06-09] VITALS: BP 111/75
--- NOTE | 2019-06-09 00:17 | NUR ---
BUDGET COUNSELOR OPENING NOTES RECEIVED PATIENT IN BED AWAKE, ALERT AND ORIENTED X3, VERBALLY RESPONSIVE, ABLE TO MAKE NEEDS KNOWN. BREATHING EVEN AND UNLABORED. NO SOB NOTED. ON ROOM AIR. DENIES PAIN OR DISCOMFORT. PORTACATH INTACT AND PATENT WITH IVF INFUSING. SKIN DRY AND WARM TO TOUCH. AFEBRILE. APACING ON TELE MONITOR. ALL OTHER NEEDS ATTENDED TO. SAFETY MEASURES IN PLACE. CALL LIGHT WITHIN REACH. WILL CONTINUE TO MONITOR.
[2019-06-09 04:00] VITALS: BP 106/73
[2019-06-09] MEDS: IV NS 0.9% 1,000 ML IV PRN ×2 (04:50→18:34)
[2019-06-09] MEDS: ZOSYN IVPB 2.25 G in IV D5W 50ml IV SCH (04:50)
--- NOTE | 2019-06-09 06:50 | NUR ---
CREATIVE TECHNOLOGIST CLOSING NOTES PATIENT RESTING IN BED. NO ACUTE CHANGES THROUGHOUT SHIFT. BREATHING EVEN AND UNLABORED. NO SOB NOTED. ON ROOM AIR. DENIES PAIN OR DISCOMFORT. PORTACATH INTACT AND PATENT WITH IVF INFUSING. APACING ON TELE MONITOR. UNABLE TO OBTAIN STOOL SAMPLE FOR CDIFF DUE TO STOOL MIXING WITH URINE. ALL OTHER NEEDS ATTENDED TO. SAFETY MEASURES IN PLACE. CALL LIGHT WITHIN REACH. WILL ENDORSE TO ONCOMING NURSE FOR RENEE.
[2019-06-09 07:18] LABS: BASOPHILS # (AUTO) 0.2 /CMM (0.0-0.2); BASOPHILS % (AUTO) 1.5 % (0.0-2.0); EOSINOPHILS % (AUTO) 6.5 % (0.0-6.0); HEMATOCRIT 46 % (39-51); HEMOGLOBIN 14.9 g/dL (13.5-17.5); LYMPHOCYTES # (AUTO) 1.3 /CMM (0.8-4.8); LYMPHOCYTES % (AUTO) 10.6 % (20.0-44.0); MEAN CORPUSCULAR HGB CONC 32 g/dl (31.0-36.0); MEAN CORPUSCULAR VOLUME 101 fL (80-96); MONOCYTES # (AUTO) 0.9 /CMM (0.1-1.30); MONOCYTES % (AUTO) 7.2 % (2.0-12.0); NEUTROPHILS # (AUTO) 9.2 /CMM (1.8-8.9); NEUTROPHILS % (AUTO) 74.2 % (43.0-81.0); PLATELET COUNT (AUTO) 279 /CMM (150-450); RED BLOOD CELL COUNT(AUTO) 4.54 MIL/uL (4.5-6.0); WHITE BLOOD COUNT (AUTO) 12.4 K/uL (4.3-11.0)
[2019-06-09 07:23] LABS: CALCIUM, SERUM 7.6 mg/dL (8.5-10.1); CREATININE 2.1 mg/dL (0.6-1.3); MAGNESIUM 1.8 mg/dL (1.8-2.4); POTASSIUM 3.4 mmol/L (3.5-5.1)
--- NOTE | 2019-06-09 07:30 | NUR ---
AIRPLANE CABIN ATTENDANT OPENING NOTES RECEIVED PATIENT IN BED RESTING COMFORTABLY IN MODERATE HIGH BACK REST. A/OX3, ABLE TO MAKE NEEDS KNOWN. NOT IN ANY SIGNS OF DISTRESS NOTED AT THIS TIME. PORTACATH INTACT AND PATENT WITH IVF INFUSING. ON TELE MONITORING WITH CURRENT READING OF APACING. SAFETY MEASURES IN PLACE. BED IN LOW LOCKED POSITION WITH SIDE RAILS UP X2. CALL LIGHT WITHIN REACH. WILL CONTINUE TO MONITOR.
[2019-06-09 08:00] VITALS: BP 103/73
[2019-06-09] MEDS: MINERAL OIL/PETROLATUM,WHITE 120 GM JAR TP SCH (09:00)
--- NOTE | 2019-06-09 10:00 | NUR ---
RN NOTES CALLED PHARMACY REGARDING EUCERENE CREAM, PER PHARMACY, MEDICATION IS NOT YET AVAILABLE. WILL F/U
[2019-06-09] MEDS ORDERED: POTASSIUM CHLORIDE 10 MEQ TABLET.SA PO ONE (11:00)
[2019-06-09] MEDS: CLOTRIMAZOLE 1% 15 GM TUBE TP SCH ×2 (11:01→17:05)
[2019-06-09] MEDS: PIPERACILLIN /TAZOBACTAM 3.375 G in IV D5W 100 ML IV SCH ×2 (12:23→20:47)
[2019-06-09 16:00] VITALS: BP 112/75
--- NOTE | 2019-06-09 18:40 | NUR ---
EDITORIAL CARTOONIST CLOSING NOTES PATIENT IN BED RESTING COMFORTABLY IN MODERATE HIGH BACK REST. A/OX3, ABLE TO MAKE NEEDS KNOWN. NOT IN ANY SIGNS OF DISTRESS NOTED THROUGHOUT THE SHIFT. PORTACATH INTACT AND PATENT WITH IVF INFUSING. ON TELE MONITORING WITH CURRENT READING OF APACING WITH HR IN 70'S. SAFETY MEASURES IN PLACE. BED IN LOW LOCKED POSITION WITH SIDE RAILS UP X2. CALL LIGHT WITHIN REACH. WILL ENDORSE TO BOOK SEWING MACHINE OPERATOR NURSE FOR RENEE.
--- NOTE | 2019-06-09 19:10 | NUR ---
PROJECT CONTROL OFFICER NOTES RECEIVED ON BED A/O X3,EATING HIS DINNER FOOD,DENIES DISCOMFORTS,IVF NS AT 100ML/HR RATE IN PROGRESS VIA LEFT UPPER CHEST WALL CLARISA CATH.CALL LIGHT IN REACH,NEEDS ANTICIPATED.
[2019-06-09 19:28] LABS: APPEARANCE,URINE CLEAR (CLEAR); BILIRUBIN,URINE NEGATIVE (NEGATIVE); BLOOD, URINE NEGATIVE Ery/uL (NEGATIVE); COLOR,URINE YELLOW (YELLOW); CREATININE, URINE 140.6 MG/DL (30.0-125.0); KETONES,URINE NEGATIVE (NEGATIVE); LEUKOCYTE ESTERASE ,URINE NEGATIVE (NEGATIVE); NITRITE, URINE NEGATIVE (NEGATIVE); PROTEIN,URINE 30 mg/dl (NEGATIVE); UGLUCOSE NEGATIVE (NEGATIVE); URINE TOTAL PROTEIN 97.8 mg/dL (0-11.9); UROBILINOGEN,URINE 0.2 EU/dL (0.2)
[2019-06-09 19:41] LABS: BACTERIA,URINE Rare /HPF (None Seen); RBC,URINE 0-2 /HPF (0-2)
[2019-06-09 19:42] LABS: SQUAMOUS EPITHELIAL CELL,UR Rare /HPF (None Seen)
[2019-06-09 19:45] LABS: FINE GRANULAR CASTS,URINE Rare /LPF (None Seen)
[2019-06-09 20:00] VITALS: BP 122/78
[2019-06-09 21:11] LABS: EOSINOPHIL,URINE Few
[2019-06-10] VITALS: BP 108/73
[2019-06-10] MEDS: PIPERACILLIN /TAZOBACTAM 3.375 G in IV D5W 100 ML IV SCH ×3 (05:11→20:59)
--- NOTE | 2019-06-10 06:34 | NUR ---
ADVERTISING COPY WRITER NOTES FAIRLY RESTED AT NIGHT,ABLE TO CALL FOR ASSISTANCE AT NIGHT.IVF IN PROGRESS,CLARISA CATH REMAINS PATENT.FALL RISK PRECAUTION OBSERVED.BED ALARM TRIGGERED.IN NO ACUTE DISTRESS.WILL ENDORSE TO DAY NURSE FOR RENEE.
[2019-06-10 07:06] LABS: BASOPHILS # (AUTO) 0.1 /CMM (0.0-0.2); BASOPHILS % (AUTO) 1.2 % (0.0-2.0); EOSINOPHILS % (AUTO) 7.2 % (0.0-6.0); HEMATOCRIT 46 % (39-51); LYMPHOCYTES # (AUTO) 1.2 /CMM (0.8-4.8); LYMPHOCYTES % (AUTO) 10.7 % (20.0-44.0); MEAN CORPUSCULAR HGB CONC 33 g/dl (31.0-36.0); MEAN CORPUSCULAR VOLUME 102 fL (80-96); MONOCYTES # (AUTO) 0.9 /CMM (0.1-1.30); MONOCYTES % (AUTO) 7.7 % (2.0-12.0); NEUTROPHILS # (AUTO) 8.3 /CMM (1.8-8.9); NEUTROPHILS % (AUTO) 73.2 % (43.0-81.0); PLATELET COUNT (AUTO) 262 /CMM (150-450); RED BLOOD CELL COUNT(AUTO) 4.55 MIL/uL (4.5-6.0); WHITE BLOOD COUNT (AUTO) 11.3 K/uL (4.3-11.0)
[2019-06-10 07:20] LABS: ALBUMIN 2.7 g/dL (3.4-5.0); BILIRUBIN,TOTAL 0.8 mg/dL (0.2-1.0); CALCIUM, SERUM 7.7 mg/dL (8.5-10.1); CREATININE 1.7 mg/dL (0.6-1.3); MAGNESIUM 1.7 mg/dL (1.8-2.4); PHOSPHORUS 1.8 mg/dL (2.5-4.9); POTASSIUM 3.3 mmol/L (3.5-5.1); TOTAL PROTEIN, SERUM 6.7 g/dL (6.4-8.2)
--- NOTE | 2019-06-10 07:33 | NUR ---
DISPOSAL OPERATOR OPENING NOTES Patient received on room air, no sob noted, a/o x3 and is currently sleeping on bed easily arousable. NS @ 100 at L CW nikko cath. Bed at the lowest setting, call light within reach, side rail up x2.
[2019-06-10 08:00] VITALS: BP 96/70
[2019-06-10] MEDS: CLOTRIMAZOLE 1% 15 GM TUBE TP SCH ×2 (08:03→17:44)
[2019-06-10] MEDS: MINERAL OIL/PETROLATUM,WHITE 120 GM JAR TP SCH (08:05)
[2019-06-10] MEDS ORDERED: POTASSIUM CHLORIDE 10 MEQ TABLET.SA PO ONE (11:30)
[2019-06-10 12:00] VITALS: BP 98/76
[2019-06-10] MEDS ORDERED: Magnesium 1GM/D5W 100ML PREMIX 100 ML IV SCH ×2 (12:11→12:13)
[2019-06-10] MEDS ORDERED: K PHOS NEUTRAL 250 MG TABLET PO ONE (12:30)
[2019-06-10 16:00] VITALS: BP 117/80
[2019-06-10] MEDS: ENSURE ENLIVE CHOC 237 ML CAN PO SCH (17:42)
--- NOTE | 2019-06-10 18:49 | NUR ---
DERRICK CAR OPERATOR CLOSING NOTES Patient remains on room air, no sob noted, a/o x3 and states that he is not in any pain at this time. Remains on telemetry, a pacing 75 rate. NS @ 100 ml per hour, Left CW nikko cath. bed at the lowest setting, call light within reach, side rails up x2, will give report to NOC RN bedside for RENEE.
--- NOTE | 2019-06-10 19:50 | NUR ---
FAST FOOD RESTAURANT MANAGER NOTES RECEIVED PATIENT AWAKE IN BED WITH NO DISTRESS NOTED. CALL LIGHT WITHIN REACH. NO C/O PAIN OR DISCOMFORT. DARREN CLARISA CATH INTACT AND PATENT. ENCOURAGED USE OF CALL LIGHT FOR ASSISTANCE AND VERBALIZED GOOD UNDERSTANDING. ROOM FREE OF CLUTTER AND BELONGINGS KEPT NEAR BEDSIDE. BED IN LOW LOCK SETTING. WILL CONTINUE TO MONITOR.
[2019-06-10 20:00] VITALS: BP 107/77
[2019-06-10] MEDS: IV NS 0.9% 1,000 ML IV PRN (21:18)
[2019-06-11 00:01] VITALS: BP 91/59
[2019-06-11 04:00] VITALS: BP 119/85
[2019-06-11] MEDS: PIPERACILLIN /TAZOBACTAM 3.375 G in IV D5W 100 ML IV SCH ×3 (05:36→21:39)
--- NOTE | 2019-06-11 06:27 | NUR ---
TOYS INSPECTOR NOTES PATIENT ASLEEP IN BED WITH NO DISTRESS NOTED. CALL LIGHT WITHIN REACH. ALL DUE MEDS GIVEN ORDERED WITH NO ASE. PLUC CLARISA CATH INTACT AND PATENT. NO C/O PAIN OR DISCOMFORT. ROOM FREE OF CLUTTER AND BELONGINGS KEPT NEAR BEDSIDE. BED IN LOW LOCK SETTING. WILL ENDORSE TO ONCOMING SHIFT.
[2019-06-11 07:31] LABS: CALCIUM, SERUM 7.9 mg/dL (8.5-10.1); CREATININE 1.7 mg/dL (0.6-1.3); MAGNESIUM 1.9 mg/dL (1.8-2.4); PHOSPHORUS 2.2 mg/dL (2.5-4.9); POTASSIUM 3.3 mmol/L (3.5-5.1)
[2019-06-11 08:00] VITALS: BP_SYST 139; BP_SYST 93; BP_DIAS 71; BP_DIAS 75
[2019-06-11] MEDS: ENSURE ENLIVE CHOC 237 ML CAN PO SCH ×2 (08:00→18:00)
[2019-06-11] MEDS ORDERED: POTASSIUM CHLORIDE 20 MEQ TAB.PRT.SR PO ONE (09:00)
[2019-06-11] MEDS: CLOTRIMAZOLE 1% 15 GM TUBE TP SCH ×2 (09:12→17:23)
[2019-06-11] MEDS: MINERAL OIL/PETROLATUM,WHITE 120 GM JAR TP SCH (09:13)
[2019-06-11] MEDS ORDERED: K PHOS NEUTRAL 250 MG TABLET PO ONE (10:00)
[2019-06-11] MEDS ORDERED: LOPERAMIDE HCL (2 MG CAP) 2 MG CAPSULE PO PRN (10:30)
--- NOTE | 2019-06-11 15:06 | NUR ---
MS/RN NOTE PER DR FORTUNE ENSURE IS CHANGED TO TID. THE ORDER IS READ BACK, VERIFIED. NOTED AND CARRIED OUT.
[2019-06-11 16:00] VITALS: BP 118/87
[2019-06-11 16:05] VITALS: BP 118/87
[2019-06-11] MEDS: IV NS 0.9% 1,000 ML IV PRN (18:01)
--- NOTE | 2019-06-11 18:16 | NUR ---
TELE/ RN NOTES PATIENT IS AWAKE, ALERT AND ORIENTED X 3. HE STATES THAT HE HAS NO PAIN AND SHOWS NO SIGNS OF SOB. DARREN CLARISA CATH IS CLEAN, DRY AND INTACT. RUNNING NS AT 100 ML/HR. THE BED IS IN LOWEST POSITION, LOCKED, WITH 2 SIDE RAILS UP. BELONGINGS ARE KEPT BY BEDSIDE. WILL GIVE REPORT TO ONCOMING RN.
--- NOTE | 2019-06-11 19:30 | NUR ---
PLY BANDER NOTES RECEIVED ON BED SLEEPING,AROUSABLE TO VERBAL STIMULI,BREATHING NORMAL,IVF NS AT 100ML/HR RATE IN PROGRESS.MAYNOR DISCOMFORTS AT THE MOMENT.CALL LIGHT IN REACH,NEEDS ANTICIPATED.
[2019-06-11 20:00] VITALS: BP_SYST 105; BP_DIAS 60; BP_DIAS 68
--- NOTE | 2019-06-11 21:30 | NUR ---
CASE REVIEWER NOTES DUE IV TRUE SCHULER,INFUSING VIA IV PUMP
[2019-06-12] VITALS: BP 101/74
[2019-06-12 04:00] VITALS: BP 93/75
[2019-06-12] MEDS: PIPERACILLIN /TAZOBACTAM 3.375 G in IV D5W 100 ML IV SCH ×2 (05:06→15:14)
--- NOTE | 2019-06-12 06:10 | NUR ---
CT TECHNOLOGIST NOTES SLEEP WELL AT NIGHT.IVF INFUSING WELL VIA CLARISA CATH ,STOOL FOR C-DIFF WITH NEGATIVE RESULT.POSSIBLE DISCHARGE TO DAY.
[2019-06-12 07:13] LABS: CALCIUM, SERUM 8.1 mg/dL (8.5-10.1); CREATININE 1.6 mg/dL (0.6-1.3); POTASSIUM 3.7 mmol/L (3.5-5.1)
--- NOTE | 2019-06-12 07:30 | NUR ---
PT RECEIVED RESTING COMFORTABLY IN BED. NO C/O OR S/S OF PAIN OR DISTRESS NOTED. SIDE RAILS UP X2, CALL LIGHT LEFT WITHIN REACH. WILL CONTINUE PLAN OF CARE.
[2019-06-12 08:00] VITALS: BP 104/70
[2019-06-12] MEDS: ENSURE ENLIVE CHOC 237 ML CAN PO SCH ×2 (08:59→15:14)
[2019-06-12] MEDS: MINERAL OIL/PETROLATUM,WHITE 120 GM JAR TP SCH (10:06)
[2019-06-12] MEDS: CLOTRIMAZOLE 1% 15 GM TUBE TP SCH (10:08)
--- NOTE | 2019-06-12 15:00 | NUR ---
DISCHARGE INSTRUCTIONS GIVEN ORDERED. ENCOURAGED TO FOLLOW UP WITH PRIMARY MD INSTRUCTED. ALL QUESTIONS AND CONCERNS ADDRESSED. PATIENT VERBALIZED UNDERSTANDING. MEDICATION RECONCILIATION FORM COMPLETED AND COPY GIVEN TO PATIENT. PORTACATH CARE PERFORMED AND LEFT INTACT. TELEMETRY UNIT RETURNED TO TELE DESK. PATIENT TAKEN TO VEHICLE VIA WHEELCHAIR WITH ALL PERSONAL BELONGINGS, ACCOMPANIED BY STAFF AND FAMILY MEMBER. NO DISTRESS NOTED AT TIME OF DEPARTURE.
[2019-06-14 05:07] LABS: *SPE A/G RATIO 0.9 (0.7-1.7); *SPE ALBUMIN 2.7 g/dL (2.9-4.4); *SPE ALPHA-1-GLOBULIN 0.3 g/dL (0.0-0.4); *SPE ALPHA-2-GLOBULIN 0.6 g/dL (0.4-1.0); *SPE GLOBULIN, TOTAL 3.1 g/dL (2.2-3.9); *SPE M-SPIKE 0.9 g/dL (Not Observed); *SPEGAMMA GLOBULIN 1.2 g/dL (0.4-1.8)
== END 2019-06-12 15:00 | disposition home health service (06) | DRG 682 ==
LOC: ER 11:50 → MED 14:13 → TELE 20:34
PROVIDERS: ADMIT Internal Medicine; ATTEND Internal Medicine
DX: N17.0 Acute kidney failure with tubular necrosis (principal); E43 Unspecified severe protein-calorie malnutrition; E87.2 Acidosis; D68.69 Other thrombophilia; Z68.1 Body mass index [BMI] 19.9 or less, adult; C18.9 Malignant neoplasm of colon, unspecified; C79.9 Secondary malignant neoplasm of unspecified site; Z95.810 Presence of automatic (implantable) cardiac defibrillator; Z83.3 Family history of diabetes mellitus; Z79.899 Other long term (current) drug therapy; Z79.01 Long term (current) use of anticoagulants; R62.7 Adult failure to thrive; E86.0 Dehydration; E11.22 Type 2 diabetes mellitus with diabetic chronic kidney disease; E89.0 Postprocedural hypothyroidism; N18.9 Chronic kidney disease, unspecified; Z85.72 Personal history of non-Hodgkin lymphomas; Z85.850 Personal history of malignant neoplasm of thyroid; Z87.891 Personal history of nicotine dependence; I48.0 Paroxysmal atrial fibrillation; Z74.09 Other reduced mobility
CPT/HCPCS: 36415; 71045-TC; 76770-TC; 80048-TC; 80053-TC; 80076-TC; 81000-TC; 82550-TC; 82570-TC; 83605-TC; 83735-TC; 83970; 84100-TC; 84155; 84155-TC; 84165; 84300-TC; 84484-TC; 85025-TC; 85730-TC; 87040-TC; 87081-TC; 87086-TC; 97116-TC; 97530-TC; G0378; J2543; J3370; J3475; J7030; J7040; J7060

== ENCOUNTER 2019-06-14 12:42 | Emergency (ER) | payer MEDICARE, MEDICAID ==
[~2019-06-14] VITALS: Ht 182.9 cm; Wt 56.2 kg
[~2019-06-14 12:42] MED LIST changes: +APIX5TAB PO; +ATEN25TA PO; -CEPH-570 PO; +LEVO100T9 PO; +[UNRECOGNIZED DRUG - CODE] PO
--- NOTE | 2019-06-14 12:44 | NUR ---
"[id number], FROM [facility] SCHEDULED FOR CHEMO, HYPOTENSION 90/60 +N/V" PT AAOX4, -SOB, NAD NOTED, VSS, PENDING MD BAHENA
[2019-06-14] MEDS ORDERED: ONDANSETRON HCL/PF 4 MG/2 ML VIAL ONE (12:57)
[2019-06-14] MEDS ORDERED: ONDANSETRON HCL/PF 4 MG/2 ML VIAL IVP ONE (13:00)
[2019-06-14 13:01] LABS: BASOPHILS # (AUTO) 0.1 /CMM (0.0-0.2); BASOPHILS % (AUTO) 1.2 % (0.0-2.0); EOSINOPHILS % (AUTO) 1.9 % (0.0-6.0); HEMATOCRIT 48 % (39-51); HEMOGLOBIN 15.7 g/dL (13.5-17.5); LYMPHOCYTES # (AUTO) 1.1 /CMM (0.8-4.8); LYMPHOCYTES % (AUTO) 9.4 % (20.0-44.0); MEAN CORPUSCULAR HGB CONC 32 g/dl (31.0-36.0); MEAN CORPUSCULAR VOLUME 102 fL (80-96); MONOCYTES # (AUTO) 0.9 /CMM (0.1-1.30); MONOCYTES % (AUTO) 8.1 % (2.0-12.0); NEUTROPHILS # (AUTO) 9.1 /CMM (1.8-8.9); NEUTROPHILS % (AUTO) 79.4 % (43.0-81.0); PLATELET COUNT (AUTO) 317 /CMM (150-450); RED BLOOD CELL COUNT(AUTO) 4.76 MIL/uL (4.5-6.0); WHITE BLOOD COUNT (AUTO) 11.5 K/uL (4.3-11.0)
[2019-06-14 13:10] LABS: CALCIUM, SERUM 9.4 mg/dL (8.5-10.1); CREATININE 2.4 mg/dL (0.6-1.3); POTASSIUM 4.5 mmol/L (3.5-5.1)
[2019-06-14 13:19] LABS: ALBUMIN 2.6 g/dL (3.4-5.0); BILIRUBIN,DIRECT 0.1 mg/dL (0.0-0.2); BILIRUBIN,TOTAL 0.6 mg/dL (0.2-1.0); TOTAL PROTEIN, SERUM 7.2 g/dL (6.4-8.2)
[2019-06-14 14:12] VITALS: BP 114/87
--- NOTE | 2019-06-14 14:12 | NUR ---
CALLED [facility] TO HAVE SOMEONE BRAKE REPAIRER RAILROAD PATIENT
--- NOTE | 2019-06-14 15:13 | NUR ---
Patient discharged to home in stable condition. Written and verbal after care instructions given. Patient verbalizes understanding of instruction.
== END 2019-06-14 15:14 | disposition home or self-care (01) ==
LOC: ER 12:43
DX: R11.10 Vomiting, unspecified (principal); I95.1 Orthostatic hypotension; I10 Essential (primary) hypertension; I48.91 Unspecified atrial fibrillation; Z98.890 Other specified postprocedural states; Z79.899 Other long term (current) drug therapy; Z85.038 Personal history of other malignant neoplasm of large intestine; Z85.850 Personal history of malignant neoplasm of thyroid
CPT/HCPCS: 36415; 80048; 80076; 83690; 85025; 96374; 99283; J2405

== ENCOUNTER 2019-06-21 10:53 | Inpatient (IN) | payer MEDICARE, MEDICAID ==
[~2019-06-21] VITALS: Ht 182.9 cm; Wt 54.4 kg
[2019-06-21] MEDS ORDERED: IV NS 0.9% 1,000 ML BAG IV ONE (11:00)
[2019-06-21] MEDS ORDERED: ONDANSETRON HCL/PF 4 MG/2 ML VIAL IVP ONE (11:00)
[2019-06-21] MEDS ORDERED: ONDANSETRON HCL/PF 4 MG/2 ML VIAL ONE (11:02)
--- NOTE | 2019-06-21 11:05 | NUR ---
C/O GENERALIZED WEAKNESS S/P GLF AT BATHROOM, PATIENT A/OX4, BREATHING EVEN AND UNLABORED, NO SOB NOTED, CHANGED INTO GOWN, ATTACHED TO THE GLOBAL CLINICAL LEADER.
[2019-06-21 11:19] LABS: BASOPHILS # (AUTO) 0.1 /CMM (0.0-0.2); EOSINOPHILS % (AUTO) 1.4 % (0.0-6.0); HEMATOCRIT 53 % (39-51); HEMOGLOBIN 17.3 g/dL (13.5-17.5); LYMPHOCYTES # (AUTO) 1.1 /CMM (0.8-4.8); LYMPHOCYTES % (AUTO) 14.1 % (20.0-44.0); MEAN CORPUSCULAR HGB CONC 32 g/dl (31.0-36.0); MEAN CORPUSCULAR VOLUME 101 fL (80-96); MONOCYTES # (AUTO) 0.3 /CMM (0.1-1.30); MONOCYTES % (AUTO) 3.2 % (2.0-12.0); NEUTROPHILS # (AUTO) 6.3 /CMM (1.8-8.9); NEUTROPHILS % (AUTO) 80.3 % (43.0-81.0); PLATELET COUNT (AUTO) 417 /CMM (150-450); RED BLOOD CELL COUNT(AUTO) 5.27 MIL/uL (4.5-6.0); WHITE BLOOD COUNT (AUTO) 7.9 K/uL (4.3-11.0)
--- NOTE | 2019-06-21 11:20 | NUR ---
XRAY AT BEDSIDE
[2019-06-21 11:24] LABS: CALCIUM, SERUM 10.8 mg/dL (8.5-10.1); CARBON DIOXIDE 20 mmol/L (21-32); CHLORIDE 98 mmol/L (98-107); CREATININE 3.4 mg/dL (0.6-1.3); GLUCOSE 190 mg/dL (74-106); POTASSIUM 3.8 mmol/L (3.5-5.1); SODIUM SERUM 132 mmol/L (136-145); UREA NITROGEN, BLOOD 69 mg/dL (7-18)
[2019-06-21 11:30] LABS: ALANINE AMINOTRANSFERASE 35 U/L (12-78); ALBUMIN 3.4 g/dL (3.4-5.0); ALKALINE PHOSPHATASE 116 U/L (46-116); ASPARTATE AMINOTRANSFERASE 35 U/L (15-37); BILIRUBIN,DIRECT 0.2 mg/dL (0.0-0.2); BILIRUBIN,TOTAL 0.6 mg/dL (0.2-1.0); LIPASE 122 U/L (73-393); TOTAL PROTEIN, SERUM 8.7 g/dL (6.4-8.2)
--- NOTE | 2019-06-21 12:00 | NUR ---
URINAL PROVIDED TO PATIENT, UNABLE TO PROVIDE URINE AT THIS TIME.
--- NOTE | 2019-06-21 12:51 | NUR ---
CALLED [facility]. MANAGER CLINIC WAS PAGED
--- NOTE | 2019-06-21 13:43 | NUR ---
CALLED [facility] FOR TELE BED
[2019-06-21] MEDS ORDERED: ONDANSETRON HCL/PF 4 MG/2 ML VIAL IVP PRN (15:00)
[2019-06-21] MEDS ORDERED: MAGNESIUM HYDROXIDE 30 ML UDC PO PRN (15:00)
[2019-06-21] MEDS ORDERED: Magnesium 1GM/D5W 100ML PREMIX 100 ML IV SCH (15:00)
[2019-06-21] MEDS ORDERED: ACETAMINOPHEN 325 MG TABLET PO PRN (15:00)
[2019-06-21] MEDS ORDERED: Z GUARD REMEDY 2 OZ OINT TP PRN (15:00)
[2019-06-21] MEDS ORDERED: MAG HYDROX/AL HYDROX/SIMETH 30 ML UDC PO PRN (15:00)
--- NOTE | 2019-06-21 15:00 | NUR ---
TELE1/RN REPORT FROM ER REPORT GIVEN BY ER NURSE MARY KAY FOR PT TO BE ADMITTED FOR DEHYDRATION SECONDARY TO ACUTE KIDNEY INJURY UNDER THE CARE OF Sunshine CHATTERJEE AWAITING FOR PT'S ARRIVAL.
--- NOTE | 2019-06-21 15:01 | NUR ---
REPORT GIVEN TO CARMELO DEGROOT.
--- NOTE | 2019-06-21 15:10 | NUR ---
TELE1/INBOUND CUSTOMER SERVICE REPRESENTATIVE TO TELE1- ROOM 106 PT ARRIVED VIA RNEY ACCOMPANIED BY ER NURSE MARY KAY AND TRACK FITTER. PT TRANSFERRED TO HOSPITAL BED BY SCOOTING OVER THE BED FROM [facility]. PT A/O X 4, DENIES ANY PAIN, ON ROOM AIR SATURATING @ 98%, TELE BOX PLACED, A-PACING, HR 62. [id number] ON LEFT CHEST WALL WITH EXTENDED IV CONNECTOR, POSITIVE OF BLOOD RETURN. PT IS COMFORTABLE, ADMITTING PROTOCOLS IN PROGRESS, AWAITING FOR ADMITTING ORDERS. CL WITHIN REACHED AND SAFETY MAINTAINED. ON GOING MONITORING.
--- NOTE | 2019-06-21 15:20 | NUR ---
PATIENT TRANSFERRED TO ROOM 106-1 VIA ACLS PROTOCOL. NEEDS ATTENDED. ENDORSED TO CARMELO DEGROOT.
[2019-06-21 16:00] VITALS: BP 96/72
[2019-06-21] MEDS: IV NS 0.9% 1,000 ML IV PRN (16:15)
[2019-06-21] MEDS ORDERED: DIPH1TAB PO (17:32)
[2019-06-21] MEDS ORDERED: ASPI-605 PO (17:32)
[2019-06-21] MEDS ORDERED: MULT-1201 PO (17:32)
[2019-06-21] MEDS ORDERED: ONDA4TAB5 PO (17:32)
[2019-06-21] MEDS ORDERED: CALC500T89 PO (17:32)
[2019-06-21] MEDS: APIXABAN 5 MG TABLET PO SCH (17:40)
[2019-06-21] MEDS: ENSURE ENLIVE CHOC 237 ML CAN PO SCH (17:54)
--- NOTE | 2019-06-21 19:23 | NUR ---
TELE1/RN AM SHIFT END NOTES NO ACUTE CHANGE OF CONDITION NOTED SINCE PT WAS ADMITTED THIS AFTERNOON. ALL NEEDS MET. PT ENDORSED TO PM NURSE TO CONTINUE CARE. CL WITHIN REACHED AND SAFETY MAINTAINED.
[2019-06-21 20:00] VITALS: BP 105/76
[2019-06-21 22:11] LABS: APPEARANCE,URINE CLEAR (CLEAR); BILIRUBIN,URINE NEGATIVE (NEGATIVE); BLOOD, URINE NEGATIVE Ery/uL (NEGATIVE); COLOR,URINE YELLOW (YELLOW); KETONES,URINE NEGATIVE (NEGATIVE); LEUKOCYTE ESTERASE ,URINE NEGATIVE (NEGATIVE); NITRITE, URINE NEGATIVE (NEGATIVE); PH,URINE 5.5 (5.0-8.0); PROTEIN,URINE 30 mg/dl (NEGATIVE); UGLUCOSE NEGATIVE (NEGATIVE); UROBILINOGEN,URINE 0.2 EU/dL (0.2)
[2019-06-21 22:21] LABS: BACTERIA,URINE Few /HPF (None Seen); SQUAMOUS EPITHELIAL CELL,UR Rare /HPF (None Seen); WBC,URINE 21-50 /HPF (0-3)
[2019-06-22] VITALS: BP 104/79
[2019-06-22 04:00] VITALS: BP 102/66
--- NOTE | 2019-06-22 06:51 | NUR ---
TRANSFORMER BUILDER NOTES, PATIENT IN BED AWAKE, A/O X 4, BREATHING EVEN AND UNLABORED, NO S/S OF SOB/ACUTE DISTRESS NOTED, DENIES ANY PAIN, ON ROOM AIR SATURATING 99% , A-PACING, HR 62. [id number] ON LEFT CHEST WALL WITH EXTENDED IV CONNECTOR, ALL NEEDS PROVIDED, SAFETY MAINTAINED AT ALL TIME, NO SIGNIFICANT CHANGE IN CONDITION, WILL ENDORSE CONTINUITY OF CARE TO ONCOMING NURSE.
[2019-06-22 07:06] LABS: BASOPHILS # (AUTO) 0.1 /CMM (0.0-0.2); BASOPHILS % (AUTO) 0.8 % (0.0-2.0); EOSINOPHILS % (AUTO) 3.8 % (0.0-6.0); HEMATOCRIT 48 % (39-51); HEMOGLOBIN 15.8 g/dL (13.5-17.5); LYMPHOCYTES # (AUTO) 1.3 /CMM (0.8-4.8); LYMPHOCYTES % (AUTO) 16.9 % (20.0-44.0); MEAN CORPUSCULAR HGB CONC 33 g/dl (31.0-36.0); MEAN CORPUSCULAR VOLUME 100 fL (80-96); MONOCYTES # (AUTO) 0.7 /CMM (0.1-1.30); MONOCYTES % (AUTO) 8.7 % (2.0-12.0); NEUTROPHILS # (AUTO) 5.6 /CMM (1.8-8.9); NEUTROPHILS % (AUTO) 69.8 % (43.0-81.0); PLATELET COUNT (AUTO) 384 /CMM (150-450); RED BLOOD CELL COUNT(AUTO) 4.79 MIL/uL (4.5-6.0)
[2019-06-22 07:31] LABS: THYROID STIMULATING HORMONE 34.304 uIU/mL (0.358-3.74)
[2019-06-22 07:33] LABS: CALCIUM, SERUM 9.4 mg/dL (8.5-10.1); CREATININE 2.7 mg/dL (0.6-1.3); PHOSPHORUS 3.5 mg/dL (2.5-4.9); POTASSIUM 3.6 mmol/L (3.5-5.1)
[2019-06-22 08:00] VITALS: BP 105/74
--- NOTE | 2019-06-22 08:00 | NUR ---
TELE1/RN AM SHIFT INITIAL NOTES RECEIVED PT AWAKE IN BED, NO ACUTE CHANGE OF CONDITION NOTED. PT A/O X 4, DENIES ANY SYMPTOMS. ON ROOM AIR SATURATING @ 95%, RESPIRATIONS EVEN & UNLABORED, LUNG SOUNDS DIMINISHED. ON TELE, A-PACING, SINUS RHYTHM, HR 75. WITH ON GOING IV FLUID INFUSION OF NS @ 75CC/HR, PORT-A-CATH PATENT, CLEAN & DRY. PT IS COMFORTABLE, SCHEDULED AM MEDS TO BE GIVEN. CL WITHIN REACHED AND SAFETY MAINTAINED. ON GOING MONITORING.
[2019-06-22] MEDS: IV NS 0.9% 1,000 ML IV PRN (08:43)
[2019-06-22] MEDS: PANTOPRAZOLE 40 MG TABLET.DR PO SCH (08:48)
[2019-06-22] MEDS: LEVOTHYROXINE SODIUM 100 MCG TABLET PO SCH (08:48)
[2019-06-22] MEDS: ENSURE ENLIVE CHOC 237 ML CAN PO SCH ×3 (08:48→16:23)
[2019-06-22] MEDS: ATENOLOL 25 MG TABLET PO SCH (08:48)
[2019-06-22] MEDS: APIXABAN 5 MG TABLET PO SCH ×2 (08:49→16:23)
[2019-06-22 12:00] VITALS: BP 108/82
--- NOTE | 2019-06-22 13:00 | NUR ---
TELE1/RN NOON ROUNDS NO CHANGE OF CONDITION. MONITORING CONTINUED.
[2019-06-22 16:00] VITALS: BP 94/70
--- NOTE | 2019-06-22 17:30 | NUR ---
TELE1/RN AFTERNOON ROUNDS PM CARE PROVIDED. NO CHANGE OF CONDITION. MONITORING CONTINUED.
--- NOTE | 2019-06-22 19:33 | NUR ---
TELE1/RN AM SHIFT END NOTES ALL NEEDS MET. NO ACUTE CHANGE OF CONDITION NOTED DURING THE SHIFT. PT ENDORSED TO PM NURSE TO CONTINUE CARE. CL WITHIN REACHED AND SAFETY MAINTAINED.
--- NOTE | 2019-06-22 19:33 | NUR ---
DENTAL CLAIMS PROCESSOR NOTE PATIENT REPORT GIVEN BEDSIDE. PATIENT RECEIVED IN BED A/O X 4. PATIENT TOELRATING ROOM AIR WELL NO S/S OF ACUTE RESP/ CARDIAC DISTRESS. PATIENT NOTED TO BE A-PACING ON THE MONITOR HR IN THE 60'S. PATIENT DENIES CHEST PAIN/SOB/ NAUSEA. PATIENT C/O DIARRHEA, MD AWARE CDIFF SENT TO LAB 06/22 BY DAY RN CARMELO. PATIENT AMBULATORY WITH STANDBY ASSIST. PATIENT HAS LCW HD CATH AND L CHEST WALL PACER NOTED. GOALS AND POC DISCUSSED WITH PATIENT. PATIENT VERBALIZE UNDERSTANDING. INSTRUCTIONS ON USE OF CALL LIGHT GIVEN. SAFETY PRECAUTIONS IN PLACE. BED IN LOWEST LOCKED POSITION. RN WILL CONTINUE TO MONITOR FOR CHANGES CALL LIGHT WITHIN REACH.
[2019-06-22 20:00] VITALS: BP 91/61
[2019-06-23] VITALS (7 sets, daily range): BP systolic 94–120; BP diastolic 63–77
[2019-06-23] MEDS: LEVOTHYROXINE SODIUM 100 MCG TABLET PO SCH (07:34)
[2019-06-23] MEDS: PANTOPRAZOLE 40 MG TABLET.DR PO SCH (07:34)
[2019-06-23] MEDS: ENSURE ENLIVE CHOC 237 ML CAN PO SCH ×3 (08:00→17:00)
[2019-06-23] MEDS: APIXABAN 5 MG TABLET PO SCH ×2 (09:08→19:00)
[2019-06-23] MEDS: ATENOLOL 25 MG TABLET PO SCH (09:14)
--- NOTE | 2019-06-23 14:39 | NUR ---
RN NOTE ISOLATION [facility] CALLED TO CONFIRM C-DIFF STOOL POSITIVE. RN NOTIFY INFECTION CONTROL AND MD. AWAITING NEW ORDERS. ISOLATION CART OUTSIDE OF ROOM AND PRECAUTIONS ENFORCED.
[2019-06-23] MEDS: VANCOMYCIN HCL 125 MG/2.5 ML ORAL.SUSP PO SCH (18:59)
[2019-06-23] MEDS: IV NS 0.9% 1,000 ML IV PRN (19:03)
--- NOTE | 2019-06-23 19:24 | NUR ---
RN CLOSING NOTE PATIENT ON ISOLATIION. STRICTLY ENFORCED. PATIENT AWAKE ALERT AND AMBULAORY WITH ASSIST. PATIENT AND FAMILU INFORMED. IV PATENT AND INTACT. BED IN LOW POSITION ALL NEEDS MET AT THIS TIME.
--- NOTE | 2019-06-23 19:30 | NUR ---
HOST/HOSTESS NOTE PATIENT REPORT GIVEN BEDSIDE. PATIENT RECEIVED IN BED A/O X 4. PATIENT TOELRATING ROOM AIR WELL NO S/S OF ACUTE RESP/ CARDIAC DISTRESS. PATIENT NOTED TO BE A-PACING ON THE MONITOR HR IN THE 70'S'S. PATIENT DENIES CHEST PAIN/SOB/ NAUSEA. . PATIENT AMBULATORY WITH STANDBY ASSIST. PATIENT HAS LCW PORT-A- CATH AND L CHEST WALL PACER NOTED. GOALS AND POC DISCUSSED WITH PATIENT. PATIENT VERBALIZE UNDERSTANDING. INSTRUCTIONS ON USE OF CALL LIGHT GIVEN. SAFETY PRECAUTIONS IN PLACE. BED IN LOWEST LOCKED POSITION. RN WILL CONTINUE TO MONITOR FOR CHANGES CALL LIGHT WITHIN REACH. PATIENT EDUCATED ON NEW ABX ORAL VANCOCIN FOR POSITIVE CDIFF CULTURE OF STOOL. PATIENT EXPRESSED COMPLIANCE WITH NEW MEDICATION.
[2019-06-24] VITALS: BP 106/79
[2019-06-24] MEDS: VANCOMYCIN HCL 125 MG/2.5 ML ORAL.SUSP PO SCH ×4 (01:04→17:09)
[2019-06-24 04:00] VITALS: BP 123/73
[2019-06-24 06:33] LABS: BASOPHILS # (AUTO) 0.1 /CMM (0.0-0.2); BASOPHILS % (AUTO) 1.1 % (0.0-2.0); EOSINOPHILS % (AUTO) 4.9 % (0.0-6.0); HEMATOCRIT 45 % (39-51); HEMOGLOBIN 14.7 g/dL (13.5-17.5); LYMPHOCYTES # (AUTO) 1.3 /CMM (0.8-4.8); LYMPHOCYTES % (AUTO) 16.2 % (20.0-44.0); MEAN CORPUSCULAR HGB CONC 33 g/dl (31.0-36.0); MEAN CORPUSCULAR VOLUME 101 fL (80-96); MONOCYTES # (AUTO) 0.7 /CMM (0.1-1.30); MONOCYTES % (AUTO) 8.1 % (2.0-12.0); NEUTROPHILS # (AUTO) 5.7 /CMM (1.8-8.9); NEUTROPHILS % (AUTO) 69.7 % (43.0-81.0); PLATELET COUNT (AUTO) 350 /CMM (150-450); RED BLOOD CELL COUNT(AUTO) 4.44 MIL/uL (4.5-6.0); WHITE BLOOD COUNT (AUTO) 8.2 K/uL (4.3-11.0)
[2019-06-24 07:09] LABS: CALCIUM, SERUM 8.4 mg/dL (8.5-10.1); MAGNESIUM 1.6 mg/dL (1.8-2.4); PHOSPHORUS 2.5 mg/dL (2.5-4.9); POTASSIUM 3.3 mmol/L (3.5-5.1)
--- NOTE | 2019-06-24 07:25 | NUR ---
TELE/RN OPENING NOTES RECEIVED PATIENT IN BED SLEEPING COMFORTABLY. PATIENT IS EASILY AROUSABLE. PATIENT IS ALERT AND ORIENTED X4. NO PAIN OR ACUTE DISTRESS AT THIS TIME. RESPIRATION EVEN AND UNLABORED. SKIN IS DRY WARM TO TOUCH. PATIENT NOTED TO BE A-PACING ON THE MONITOR HR IN THE 78'S. PATIENT AMBULATORY WITH STANDBY ASSIST. ALL NEEDS ANTICIPATED. CALL LIGHT WITHIN REACHED. BED LOCKED AND IN LOWEST POSITION. SAFETY MAINTAINED. PLAN OF CARE DISCUSSED WITH PATIENT. WILL CONTINUE TO MONITOR CLOSELY.
[2019-06-24] MEDS: PANTOPRAZOLE 40 MG TABLET.DR PO SCH (07:31)
[2019-06-24] MEDS: LEVOTHYROXINE SODIUM 100 MCG TABLET PO SCH (07:31)
[2019-06-24] MEDS: ENSURE ENLIVE CHOC 237 ML CAN PO SCH ×3 (07:51→17:09)
[2019-06-24 08:00] VITALS: BP 115/75
[2019-06-24] MEDS: ATENOLOL 25 MG TABLET PO SCH (08:29)
[2019-06-24] MEDS: APIXABAN 5 MG TABLET PO SCH ×2 (08:30→17:07)
[2019-06-24 12:00] VITALS: BP 122/70
[2019-06-24] MEDS ORDERED: POTASSIUM CHLORIDE 10 MEQ TABLET.SA PO ONE (12:30)
[2019-06-24] MEDS ORDERED: Magnesium 1GM/D5W 100ML PREMIX 100 ML IV SCH (12:36)
[2019-06-24] MEDS: IV NS 0.9% 1,000 ML IV PRN ×2 (12:47→19:00)
[2019-06-24 16:00] VITALS: BP_SYST 130; BP_DIAS 72; BP_DIAS 76
--- NOTE | 2019-06-24 18:47 | NUR ---
TELE/RN CLOSING NOTES PATIENT CONTINUES TO REMAIN IN STABLE CONDITION THROUGHOUT THE SHIFT. PROVIDED COMFORT AND SAFETY. PATIENT WAS ABLE TO TOLERATE MEALS AND MEDS WELL. PATIENT NOTED TO BE A-PACING ON THE MONITOR HR IN THE 80'S. PATIENT AMBULATORY WITH STANDBY ASSIST. ALL NEEDS ANTICIPATED. CALL LIGHT WITHIN REACHED. BED LOCKED AND IN LOWEST POSITION. SAFETY MAINTAINED. PLAN OF CARE DISCUSSED WITH PATIENT. WILL CONTINUE TO MONITOR CLOSELY. ENDORSED TO PM NURSE FOR RENEE.
[2019-06-24 20:00] VITALS: BP 110/82
[2019-06-25] VITALS: BP 111/70
[2019-06-25] MEDS: VANCOMYCIN HCL 125 MG/2.5 ML ORAL.SUSP PO SCH ×4 (00:51→17:01)
[2019-06-25 04:00] VITALS: BP 98/67
[2019-06-25 06:50] LABS: BASOPHILS # (AUTO) 0.1 /CMM (0.0-0.2); BASOPHILS % (AUTO) 0.9 % (0.0-2.0); EOSINOPHILS % (AUTO) 4.8 % (0.0-6.0); HEMATOCRIT 43 % (39-51); HEMOGLOBIN 14.4 g/dL (13.5-17.5); LYMPHOCYTES # (AUTO) 1.3 /CMM (0.8-4.8); LYMPHOCYTES % (AUTO) 14.5 % (20.0-44.0); MEAN CORPUSCULAR HGB CONC 33 g/dl (31.0-36.0); MEAN CORPUSCULAR VOLUME 101 fL (80-96); MONOCYTES # (AUTO) 0.7 /CMM (0.1-1.30); MONOCYTES % (AUTO) 7.9 % (2.0-12.0); NEUTROPHILS # (AUTO) 6.5 /CMM (1.8-8.9); NEUTROPHILS % (AUTO) 71.9 % (43.0-81.0); PLATELET COUNT (AUTO) 350 /CMM (150-450); RED BLOOD CELL COUNT(AUTO) 4.32 MIL/uL (4.5-6.0); WHITE BLOOD COUNT (AUTO) 9.1 K/uL (4.3-11.0)
[2019-06-25] MEDS: IV NS 0.9% 1,000 ML IV PRN (06:53)
--- NOTE | 2019-06-25 07:00 | NUR ---
CARGO SURVEYOR OPENING NOTES RECEIVED PT LYING ON BED.ALERT/ORIENTED X4,ON TELE HR IS 73 WITH A PACING.ON ROOM AIR,TOLERATING WELL.NO SOB AND ACUTE DISTRESS NOTED.CAN AMBULATE WELL WITH ASSISTANCE.PORT A CATH PRESENT ON LEFT CHEST WALL WITH NS @75MLS/HR IS RUNNING.SITE IS CLEAN,DRY AND INTACT.NO INFILTRATION NOTED.BED IS I LOW POSITION AND LOCKED,CALL LIGHT IS WITHIN REACH.WILL CONTINUE TO MONITOR THE PT CLOSELY.
[2019-06-25 07:01] LABS: CALCIUM, SERUM 8.2 mg/dL (8.5-10.1); CREATININE 1.8 mg/dL (0.6-1.3); MAGNESIUM 1.9 mg/dL (1.8-2.4); POTASSIUM 3.6 mmol/L (3.5-5.1)
[2019-06-25 08:00] VITALS: BP 113/82
[2019-06-25] MEDS: LEVOTHYROXINE SODIUM 100 MCG TABLET PO SCH (09:06)
[2019-06-25] MEDS: ATENOLOL 25 MG TABLET PO SCH (09:06)
[2019-06-25] MEDS: PANTOPRAZOLE 40 MG TABLET.DR PO SCH (09:06)
[2019-06-25] MEDS: ENSURE ENLIVE CHOC 237 ML CAN PO SCH ×3 (09:07→17:02)
[2019-06-25] MEDS: APIXABAN 5 MG TABLET PO SCH ×2 (09:12→16:47)
[2019-06-25] MEDS ORDERED: VANC125C11 PO (15:04)
[2019-06-25 16:00] VITALS: BP 105/91
--- NOTE | 2019-06-25 17:30 | NUR ---
SENIOR QUANTITY SURVEYOR NOTES DISCHARGE REPORT GIVEN TO ZANE STEEN IN [facility],ROOM 5.
--- NOTE | 2019-06-25 18:36 | NUR ---
PAINT MIXER CLOSING NOTES PT IS LYING ON BED WITH IV FLUIDS NS @75CC/HR IS RUNNING ON LEFT CHEST WALL PORT A CATH.SITE IS CLEAN,DRY AND INTACT.PT STILL ON CONTACT ISOLATION FOR C DIFF AND HAS ACTIVE DIARRHEA.RESPIRATION IS EVEN AND NONLABORED.NO SIGNIFICANT CHANGES NOTED IN THE SHIFT.ENDORSED TO CAN STRIPER ZANE DUDLEY TO REMOVE PORT A CATH AT THE TIME OF SECURITY STRATEGIST
--- NOTE | 2019-06-25 19:30 | NUR ---
RECEIVED PATIENT AWAKE IN BED WITH NO DISTRESS NOTED. CALL LIGHT WITHIN REACH. NO C/O PAIN OR DISCOMFORT. DARREN CLARISA CATH INTACT AND PATENT. NO SWELLING, REDNESS, BLEEDING NOTED. CONTACT ISOLATION OBSERVED AND MAINTAINED. BED IN LOW LOCK SETTING. WILL CONTINUE TO MONITOR
--- NOTE | 2019-06-25 20:03 | NUR ---
PATIENT DISCHARGED AND PICKED UP BY [facility] TRANSPORTATION VIA GURNEY IN STABLE CONDITION. NO C/O PAIN OR DISCOMFORT. VITALS WNL. DARREN CLARISA CATH REMOVED AND TOLERATED WELL. NO ACTIVE BLEEDING, REDNESS, OR SWELLING NOTED. SITE COVERED WITH STERILE DRESSING. DC INSTRUCTIONS GIVEN TO PATIENT AND DC PACKET GIVEN TO TRANSPO. ALL BELONGINGS TAKEN WITH PATIENT.
== END 2019-06-25 20:00 | DRG 371 ==
LOC: ER 10:53 → TELE1 14:24 → MEDSG1 06-25 13:17
PROVIDERS: ADMIT Registered Nurse; ATTEND Hospitalist
DX: A04.72 Enterocolitis due to Clostridium difficile, not specified as recurrent (principal); N17.0 Acute kidney failure with tubular necrosis; E43 Unspecified severe protein-calorie malnutrition; C79.51 Secondary malignant neoplasm of bone; E87.1 Hypo-osmolality and hyponatremia; C18.9 Malignant neoplasm of colon, unspecified; C77.9 Secondary and unspecified malignant neoplasm of lymph node, unspecified; C78.00 Secondary malignant neoplasm of unspecified lung; C79.89 Secondary malignant neoplasm of other specified sites; Z68.1 Body mass index [BMI] 19.9 or less, adult; E86.0 Dehydration; N18.9 Chronic kidney disease, unspecified; I12.9 Hypertensive chronic kidney disease with stage 1 through stage 4 chronic kidney disease, or unspecified chronic kidney disease; E83.52 Hypercalcemia; E83.42 Hypomagnesemia; I10 Essential (primary) hypertension; I48.91 Unspecified atrial fibrillation; Z79.899 Other long term (current) drug therapy; E86.1 Hypovolemia; Z95.810 Presence of automatic (implantable) cardiac defibrillator; Z90.49 Acquired absence of other specified parts of digestive tract; Z87.891 Personal history of nicotine dependence; Z83.3 Family history of diabetes mellitus; Z79.01 Long term (current) use of anticoagulants; Z86.59 Personal history of other mental and behavioral disorders; E89.0 Postprocedural hypothyroidism; Z79.82 Long term (current) use of aspirin; Z85.850 Personal history of malignant neoplasm of thyroid; Z85.72 Personal history of non-Hodgkin lymphomas; Z98.890 Other specified postprocedural states
CPT/HCPCS: 36415; 71045-TC; 80048-TC; 80061-TC; 80076-TC; 81000-TC; 83690-TC; 83735-TC; 84100-TC; 84439-TC; 84443-TC; 84484-TC; 85025-TC; 87040-TC; 87081-TC; 87086-TC; 97116-TC; 97530-TC; G0378; J2405; J3475; J7030

== ENCOUNTER 2019-07-19 13:22 | Inpatient (IN) | payer MEDICARE, MEDICAID ==
[~2019-07-19] VITALS: Ht 182.9 cm; Wt 50.8 kg
[~2019-07-19 13:22] MED LIST changes: +ASPI-605 PO; +CALC500T89 PO; +DIPH1TAB PO; +MULT-1201 PO; +ONDA4TAB5 PO; +VANC125C11 PO
--- NOTE | 2019-07-19 13:45 | NUR ---
bibpa, from SNF, lac on the left eye and R hand skin tear s/p GLF from the commode 12MN, -ko. Patient a/ox4, breathing even and unlabored, no sob noted, needs attended. Attached to the night monitor.
--- NOTE | 2019-07-19 14:32 | NUR ---
patient taken to ct.
--- NOTE | 2019-07-19 15:05 | NUR ---
blood drawn and sent to lab.
[2019-07-19 15:12] LABS: BASOPHILS % (AUTO) 0.4 % (0.0-2.0); EOSINOPHILS % (AUTO) 0.5 % (0.0-6.0); HEMATOCRIT 50 % (39-51); HEMOGLOBIN 16.5 g/dL (13.5-17.5); LYMPHOCYTES # (AUTO) 1.4 /CMM (0.8-4.8); LYMPHOCYTES % (AUTO) 9.9 % (20.0-44.0); MEAN CORPUSCULAR HGB CONC 33 g/dl (31.0-36.0); MEAN CORPUSCULAR VOLUME 99 fL (80-96); MONOCYTES # (AUTO) 1.1 /CMM (0.1-1.30); MONOCYTES % (AUTO) 7.8 % (2.0-12.0); NEUTROPHILS # (AUTO) 11.4 /CMM (1.8-8.9); NEUTROPHILS % (AUTO) 81.4 % (43.0-81.0); PLATELET COUNT (AUTO) 386 /CMM (150-450); RED BLOOD CELL COUNT(AUTO) 5.05 MIL/uL (4.5-6.0)
[2019-07-19 15:36] LABS: CALCIUM, SERUM 8.7 mg/dL (8.5-10.1); CARBON DIOXIDE 26 mmol/L (21-32); CHLORIDE 99 mmol/L (98-107); CREATININE 4.4 mg/dL (0.6-1.3); GLUCOSE 96 mg/dL (74-106); POTASSIUM 3.4 mmol/L (3.5-5.1); SODIUM SERUM 138 mmol/L (136-145)
[2019-07-19 15:41] LABS: UREA NITROGEN, BLOOD 87 mg/dL (7-18)
[2019-07-19] MEDS ORDERED: GUAI-1189 PO (15:55)
[2019-07-19] MEDS ORDERED: ALBU2.5V38 IH (15:55)
[2019-07-19] MEDS ORDERED: [UNRECOGNIZED DRUG - CODE] PO (15:55)
[2019-07-19] MEDS ORDERED: ACET100V4 PO (15:55)
[2019-07-19] MEDS ORDERED: DIPH1TAB PO (15:55)
[2019-07-19] MEDS ORDERED: MULT-1119 PO (15:55)
[2019-07-19] MEDS ORDERED: LACT-214 PO (15:55)
[2019-07-19] MEDS ORDERED: IV NS 0.9% 1,000 ML BAG IV ONE (16:00)
[2019-07-19] MEDS ORDERED: LIDOCAINE 1%-EPI 1:100,000 20 ML VIAL ONE (16:27)
[2019-07-19] MEDS ORDERED: LIDOCAINE 1%-EPI 1:100,000 50 ML VIAL IJ ONE (16:30)
--- NOTE | 2019-07-19 17:01 | NUR ---
REPORT GIVEN TO ROBBY DEGROOT.
--- NOTE | 2019-07-19 17:37 | NUR ---
PATIENT HAD A BM ON A BEDPAN MIXED WITH URINE, DR. FRANKLIN MADE AWARE. PATIENT OFFERED URINAL BUT REFUSED AT THIS TIME, HE STATED "I JUST WENT, MAYBE LATER"
--- NOTE | 2019-07-19 17:37 | NUR ---
PATIENT TRANSFERRED TO ROOM 106, IN STABLE CONDITION. NO DISTRESS NOTED
--- NOTE | 2019-07-19 17:50 | NUR ---
TELE/RN NOTES RECEIVED PATIENT FROM ER. PATIENT WAS ACCOMPANIED BY ER NURSE. PATIENT WAS TRANSFERRED TO BED. INITIAL SKIN ASSESSMENT WAS DONE. NOTED WITH LEFT ORBITAL SUTURE, RIGHT HAND SKIN TEAR AND LEFT ELBOW SKIN TEAR. UNABLE TO DO COMPLETE BODY ASSESSEMENT DUE TO PATIENT REFUSING. PHOTO WAS TAKEN AND WAS PLACED IN THE CHART. PATIENT NOTED WITH LEFT AC IV ACCESS. INTACT AND PATENT. FLUSHING WELL. NO S/S OR INFECTION OR INFILTRATION. TELE MONITOR WAS PLACED. ALL NEEDS ANTICIPATED. CALL LIGHT WITHIN REACHED. BED LOCKED AND IN LOWEST POSITION. WILL CONTINUE TO MONITOR CLOSELY.
[2019-07-19 18:00] VITALS: BP 81/53
[2019-07-19] MEDS ORDERED: Z GUARD REMEDY 2 OZ OINT TP PRN (18:30)
[2019-07-19] MEDS ORDERED: MAG HYDROX/AL HYDROX/SIMETH 30 ML UDC PO PRN (18:30)
[2019-07-19] MEDS ORDERED: HYDROCODONE/APAP 5/325MG 1 EACH TABLET PO PRN (18:30)
[2019-07-19] MEDS ORDERED: ACETAMINOPHEN 325 MG TABLET PO PRN (18:30)
[2019-07-19] MEDS ORDERED: ONDANSETRON HCL/PF 4 MG/2 ML VIAL IVP PRN (18:30)
[2019-07-19] MEDS ORDERED: ZOLPIDEM TARTRATE 5 MG TABLET PO PRN (18:30)
[2019-07-19] MEDS ORDERED: MAGNESIUM HYDROXIDE 30 ML UDC PO PRN (18:30)
[2019-07-19] MEDS: IV 1/2NS 1000 ML 1,000 ML IV PRN (19:00)
--- NOTE | 2019-07-19 19:30 | NUR ---
RN NOTES, RECEIVED PATIENT IN BED, A/O X4 ABLE TO VERBALIZED NEED AND CONCERNS, ON RA BREATHING EVEN AND UNLABORED, NO SOB/ACUTE DISTRESS NOTED AT THIS TIME, NO S/O PAIN OR DISCOMFORT AT THIS TIME, NSR IN TELE MONITOR WITH HR 70S, LEFT AC IV ACCESS PATENT AND INTACT, IVF INFUSING WELL AND PATIENT TOLERATED WELL, NO S/S OF INFILTRATION OR ABNORMALITY NOTED AT SITE, ALL NEEDS ANTICIPATED, CALL LIGHT WITHIN REACHED, BED LOCKED AND IN LOWEST POSITION, WILL CONTINUE TO MONITOR CLOSELY.
--- NOTE | 2019-07-19 19:40 | NUR ---
TELE/RN CLOSING NOTES PATIENT CONTINUES TO REMAIN IN STABLE CONDITION THROUGHOUT THE SHIFT. PROVIDED COMFORT AND SAFETY. PATIENT WAS IN STABLE CONDITION. ENDORSED TO PM NURSE FOR RENEE.
[2019-07-19 20:00] VITALS: BP 95/65
--- NOTE | 2019-07-19 20:30 | NUR ---
RN NOTES, PATIENT REFUSED TO MOVE FROM BED, SIT DOWN OR GET UP TO TAKE BLOOD PRESSURE, RECHECK BLOOD PRESSURE AT THIS TIME AGAIN LAYING DOWN 108/64, WILL CONTINUE TO MONITOR CLOSELY.
--- NOTE | 2019-07-19 20:35 | NUR ---
ECHO EXAM CANCELLED. DUPLICATE. LAST ECHO DONE 04/18/19. RN AND MD NOTIFIED.
--- NOTE | 2019-07-19 21:00 | NUR ---
RN NOTES, PATIENT WITH ORDER FOR ECHO AND RADIOLOGIST HERE AT THIS TIME, ASKING IF DR WANTS THE ECHO AGAIN SINCE IT WAS DONE IN LAST VISIT 04/19/19 WITH 55% EF, PER DEVIKA TO CANCEL ORDER.
[2019-07-20] VITALS: BP_SYST 100; BP_SYST 112; BP_DIAS 56; BP_DIAS 66
[2019-07-20] MEDS: IV 1/2NS 1000 ML 1,000 ML IV PRN (01:32)
[2019-07-20 04:00] VITALS: BP 129/74
[2019-07-20 06:29] LABS: BASOPHILS # (AUTO) 0.1 /CMM (0.0-0.2); BASOPHILS % (AUTO) 0.8 % (0.0-2.0); EOSINOPHILS % (AUTO) 1.1 % (0.0-6.0); HEMATOCRIT 45 % (39-51); HEMOGLOBIN 14.9 g/dL (13.5-17.5); LYMPHOCYTES # (AUTO) 1.1 /CMM (0.8-4.8); LYMPHOCYTES % (AUTO) 10.4 % (20.0-44.0); MEAN CORPUSCULAR HGB CONC 33 g/dl (31.0-36.0); MEAN CORPUSCULAR VOLUME 99 fL (80-96); MONOCYTES # (AUTO) 0.9 /CMM (0.1-1.30); MONOCYTES % (AUTO) 7.9 % (2.0-12.0); NEUTROPHILS # (AUTO) 8.7 /CMM (1.8-8.9); NEUTROPHILS % (AUTO) 79.8 % (43.0-81.0); PLATELET COUNT (AUTO) 343 /CMM (150-450); RED BLOOD CELL COUNT(AUTO) 4.54 MIL/uL (4.5-6.0); WHITE BLOOD COUNT (AUTO) 10.9 K/uL (4.3-11.0)
--- NOTE | 2019-07-20 06:45 | NUR ---
RN NOTES, RECEIVED PATIENT IN BED, SLEEPING AT THIS TIME, ON RA BREATHING EVEN AND UNLABORED, NO SOB/ACUTE DISTRESS NOTED AT THIS TIME, NO S/O PAIN OR DISCOMFORT AT THIS TIME, CONTINUE NSR IN TELE MONITOR WITH HR 70S, LEFT AC IV ACCESS PATENT AND INTACT, IVF INFUSING WELL AND PATIENT TOLERATED WELL, NO S/S OF INFILTRATION OR ABNORMALITY NOTED AT SITE, NO SIGNIFICANT CHANGE IN CONDITION DURING THE NIGHT, CALL LIGHT WITHIN REACHED, BED LOCKED AND IN LOWEST POSITION, WILL ENDORSE CONTINUITY OF CARE TO ONCOMING NURSE.
[2019-07-20 06:47] LABS: CALCIUM, SERUM 7.8 mg/dL (8.5-10.1); MAGNESIUM 1.6 mg/dL (1.8-2.4); PHOSPHORUS 2.7 mg/dL (2.5-4.9); POTASSIUM 3.6 mmol/L (3.5-5.1); THYROID STIMULATING HORMONE 8.792 uIU/mL (0.358-3.74)
--- NOTE | 2019-07-20 07:10 | NUR ---
RN INITIAL NOTE RECEIVED BEDSIDE REPORT FROM ZANE WOOD. PATIENT IN BED, ASLEEP BUT EASILY AROUSABLE TO NAME. ALERTX4. ON TELE MONITOR, SR. HAS MULTIPLE WOUNDS S/P FALL. HAS A LEFT AC#20 WITH HALF NS AT 75ML/HR. CT HEAD NEGATIVE. NO COMPLAINS OF ANY PAIN NOR SOB AT THIS TIME. BED LOCKED AND IN LOWEST POSITION. CALL LIGHT WITHIN REACH. WILL CONTINUE TO MONITOR
[2019-07-20 08:00] VITALS: BP 91/46
[2019-07-20] MEDS: IV NS 0.9% 1,000 ML IV SCH ×2 (09:49→14:31)
[2019-07-20] MEDS: POTASSIUM CHLORIDE 20 MEQ TAB.PRT.SR PO SCH ×3 (09:49→11:50)
--- NOTE | 2019-07-20 09:50 | NUR ---
RN NOTE DID AN ORTHOSTATIC BP FOR THE PATIENT PER DR SOMERS'S ORDER. LAYING DOWN 82/58 SITTING 80/59 STANDING UP, PATIENT KEEPS ON MOVING AND WAS VERY UNSTABLE, KEEPS SITTING DOWN THEN STANDING UP WITH 2 PERSON ASSIST. BP RESULTED TO 146/[address] BERNARD AND DR SOMERS AWARE. DR BERNARD ORDERED IVF 2000ML TO BE INFUSED IN 8 HOURS
--- NOTE | 2019-07-20 09:52 | NUR ---
RN NOTE TRIED INSERTING AN IV FOR THIS PATIENT, UNSUCCESSFUL. WILL TRY AGAIN LATER
[2019-07-20] MEDS ORDERED: ALBUTEROL FS 2.5 MG/3 ML VIAL.NEB NEB PRN (10:30)
[2019-07-20] MEDS ORDERED: ACETYLCYSTEINE 10% 3,000 MG/30 ML VIAL IH PRN (10:30)
[2019-07-20] MEDS ORDERED: DIPHENOXYLATE HCL/ATROP SULF 1 UDTAB TABLET PO PRN (10:30)
[2019-07-20] MEDS ORDERED: GUAIFENESIN/D-METHORPHAN HB 5 ML UDC PO PRN (11:00)
[2019-07-20] MEDS ORDERED: ONDANSETRON 4 MG TAB.RAPDIS PO PRN (11:00)
--- NOTE | 2019-07-20 11:01 | NUR ---
WOUND CARE CONSULT: PT PRESENTS WITH INCONTINENCE OF VERY LOOSE STOOL, RASH TO SACRAL/BUTTOCKS AREA WITH OPEN SKIN AND SKIN TEARS TO UPPER EXTREMITIES, PRESENT ON ADMISSION. LEFT EYEBROW SUTURED LACERATION AND HEEL CALLUSES ALSO NOTED PRESENT ON ADMISSION. RECOMMENDATIONS MADE FOR SKIN PROTECTION AND WOUND CARE. DISDCUSSEC WITH NURSING STAFF. PT IS INDEPENDENT WITH BED MOBILITY AT THIS TIME. WILL SEE PRN. REED IN AGREEMENT WITH PLAN OF CARE. CURRENT ANETA SCORE IS I7. Addendum: 07/20/19 at 1103 by NAGA BLACK WNDNU Amended: Links added.
[2019-07-20 12:00] VITALS: BP 109/71
[2019-07-20] MEDS ORDERED: ACETYLCYSTEINE 10% SOLN 400 MG/4 ML VIAL IH PRN (12:00)
[2019-07-20] MEDS: ENSURE CLEAR 237 ML LIQUID (MIX BERRY) PO SCH ×2 (12:43→17:20)
[2019-07-20] MEDS: Magnesium 1GM/D5W 100ML PREMIX 100 ML IV SCH ×2 (13:07→14:32)
--- NOTE | 2019-07-20 14:36 | NUR ---
RN NOTE PATIENT'S CALLED AND NOTIFIED ME THAT PATIENT WAS IN CONTACT ISOLATION FOR C. DIFF. ORDERED ISOLATION CART AND CLOROX WIPES. NOTIFIED ARNAUD. Addendum: 07/20/19 at 1453 by PAULETTE DELONG RN WILL SEND STOOL SAMPLE FOR CDIFF. IS AWARE
[2019-07-20 16:00] VITALS: BP 89/66
[2019-07-20] MEDS: CLOTRIMAZOLE 1% 15 GM TUBE TP SCH (16:12)
[2019-07-20] MEDS: APIXABAN 2.5 MG TABLET PO SCH (17:17)
--- NOTE | 2019-07-20 18:47 | NUR ---
RN CLOSING NOTE PATIENT IN BED, AWAKE AND ALERT. ALL MEDS GIVEN. ALL NEEDS MET. NO COMPLAINS OF ANY PAIN NOR SOB AT THIS TIME. ON CONTACT ISO FOR C DIFF. STOOL SAMPLE SENT TO LAB. HAS A LEFT AC #20 WITH THE LAST BAG OF NS AT 250ML/HR. PATIENT WAS PLACED ON ISOFLEX BED PER WOUND CARE ORDER. CAPRELSA WAS SENT TO PHARMACY. MED RECON DONE. PATIENT WAS SEEN BY PT/OT. DR LANDRY IS HERE TO SEE PATIENT WELL. BED LOCKED AND IN LOWEST POSITION. CALL LIGHT WITHIN REACH. WILL ENDORSE TO NOC SHIFT FOR RENEE
--- NOTE | 2019-07-20 19:30 | NUR ---
RN NOTES, RECEIVED PATIENT IN BED, A/O X4 ABLE TO VERBALIZED NEED AND CONCERNS, ON RA BREATHING EVEN AND UNLABORED, NO SOB/ACUTE DISTRESS NOTED AT THIS TIME, NO S/O PAIN OR DISCOMFORT AT THIS TIME, NSR IN TELE MONITOR WITH HR 70S, LEFT AC IV ACCESS PATENT AND INTACT, IVF INFUSING WELL ALMOST DONE WITH THE ORDER FOR IVF, PATIENT TOLERATED WELL, NO S/S OF INFILTRATION OR ABNORMALITY NOTED AT SITE, ALL NEEDS ANTICIPATED, ON CONTACT ISOLATION PRECAUTIONS FOR C-DIFF, CALL LIGHT WITHIN REACH, BED LOCKED AND IN LOWEST POSITION, WILL CONTINUE TO MONITOR CLOSELY.
[2019-07-20 20:00] VITALS: BP 91/65
[2019-07-21] VITALS: BP 100/66
[2019-07-21] MEDS: VANCOMYCIN HCL 125 MG/2.5 ML ORAL.SUSP PO SCH ×4 (00:19→17:06)
[2019-07-21 04:00] VITALS: BP 103/59
[2019-07-21 06:19] LABS: BASOPHILS # (AUTO) 0.1 /CMM (0.0-0.2); BASOPHILS % (AUTO) 0.6 % (0.0-2.0); HEMATOCRIT 42 % (39-51); HEMOGLOBIN 13.6 g/dL (13.5-17.5); LYMPHOCYTES # (AUTO) 0.9 /CMM (0.8-4.8); LYMPHOCYTES % (AUTO) 6.9 % (20.0-44.0); MEAN CORPUSCULAR HGB CONC 33 g/dl (31.0-36.0); MEAN CORPUSCULAR VOLUME 98 fL (80-96); MONOCYTES # (AUTO) 0.9 /CMM (0.1-1.30); MONOCYTES % (AUTO) 7.1 % (2.0-12.0); NEUTROPHILS # (AUTO) 11.2 /CMM (1.8-8.9); NEUTROPHILS % (AUTO) 84.4 % (43.0-81.0); PLATELET COUNT (AUTO) 309 /CMM (150-450); RED BLOOD CELL COUNT(AUTO) 4.24 MIL/uL (4.5-6.0); WHITE BLOOD COUNT (AUTO) 13.2 K/uL (4.3-11.0)
--- NOTE | 2019-07-21 06:43 | NUR ---
RN NOTES, PATIENT IN BED SLEEPING AT THIS TIME, BUT AROUSES EASILY TO VERBAL STIMULI, ON RA BREATHING EVEN AND UNLABORED, NO SOB/ACUTE DISTRESS NOTED AT THIS TIME, NO S/S PAIN OR DISCOMFORT AT THIS TIME, CONTINUE NSR IN TELE MONITOR WITH HR 70S, LEFT AC IV ACCESS PATENT AND INTACT S/L NO S/S OF INFILTRATION OR ABNORMALITY NOTED AT SITE, NO SIGNIFICANT CHANGE IN CONDITION DURING THE NIGHT, CALL LIGHT WITHIN REACHED, BED LOCKED AND IN LOWEST POSITION, WILL ENDORSE CONTINUITY OF CARE TO ONCOMING NURSE.
[2019-07-21 07:18] LABS: ALANINE AMINOTRANSFERASE 37 U/L (12-78); ALBUMIN 2.4 g/dL (3.4-5.0); ALKALINE PHOSPHATASE 105 U/L (46-116); ASPARTATE AMINOTRANSFERASE 34 U/L (15-37); BILIRUBIN,TOTAL 0.5 mg/dL (0.2-1.0); CALCIUM, SERUM 7.4 mg/dL (8.5-10.1); CARBON DIOXIDE 20 mmol/L (21-32); CHLORIDE 110 mmol/L (98-107); CREATININE 1.7 mg/dL (0.6-1.3); GLUCOSE 77 mg/dL (74-106); MAGNESIUM 1.8 mg/dL (1.8-2.4); PHOSPHORUS 1.4 mg/dL (2.5-4.9); POTASSIUM 3.8 mmol/L (3.5-5.1); SODIUM SERUM 142 mmol/L (136-145); TOTAL PROTEIN, SERUM 6.3 g/dL (6.4-8.2); UREA NITROGEN, BLOOD 36 mg/dL (7-18)
[2019-07-21 08:00] VITALS: BP 130/78
--- NOTE | 2019-07-21 08:00 | NUR ---
ICU/RN INITIAL NOTES,AM RECEIVED BEDSIDE REPORT FROM NIGHT NURSE. PT ALERT, AWAKE, FOLLOWS COMMANDS. PT ON TELE, NSR. ON ROOM AIR, NO DISTRESS NOTED. LEFT AC PATENT AND INTACT. ALL NEEDS WILL BE ATTENDED TO, SAFETY MEASURES TAKEN, BED IN LOW POSITION, SIDE RAILS UP, CALL LIGHT WITHIN REACH. ISOLATION PRECAUTIONS CONSIDERED FOR C.DIFF.
[2019-07-21] MEDS: CALCIUM CARBONATE (1250) 500 MG TABLET PO SCH (08:27)
[2019-07-21] MEDS: ASPIRIN EC 81 MG TABLET.DR PO SCH (08:27)
[2019-07-21] MEDS: MULTIVITAMINS,THERAGRAN 1 UDTAB TABLET PO SCH (08:27)
[2019-07-21] MEDS: LEVOTHYROXINE SODIUM 100 MCG TABLET PO SCH (08:27)
[2019-07-21] MEDS: APIXABAN 2.5 MG TABLET PO SCH ×2 (08:28→17:07)
[2019-07-21] MEDS: CLOTRIMAZOLE 1% 15 GM TUBE TP SCH ×2 (08:29→17:08)
[2019-07-21] MEDS: ENSURE CLEAR 237 ML LIQUID (MIX BERRY) PO SCH ×3 (08:29→17:08)
[2019-07-21] MEDS ORDERED: Medication Not On Formulary EA (Multivitamin/Iron/Folic Acid (Centrum Adults Tablet) 1 E PO SCH (09:00)
--- NOTE | 2019-07-21 10:20 | NUR ---
ICU/RN: AT BEDSIDE. ORDERS FOR ORTHOSTATICS RECEIVED. IV FLUIDS ALSO ORDERED. WILL FOLLOW THROUGH.
[2019-07-21] MEDS: IV NS 0.9% 1,000 ML IV PRN ×2 (10:25→18:36)
[2019-07-21] MEDS: POTASSIUM CHLORIDE 20 MEQ TAB.PRT.SR PO SCH ×2 (10:28→13:38)
[2019-07-21 11:00] VITALS: BP_SYST 110; BP_SYST 73; BP_SYST 93; BP_DIAS 53; BP_DIAS 68; BP_DIAS 71
[2019-07-21] MEDS ORDERED: K PHOS NEUTRAL 250 MG TABLET PO ONE (11:00)
--- NOTE | 2019-07-21 11:00 | NUR ---
ICU/RN: PER ORTHOSTATIC BP DONE, CHARTED IN INTERVENTIONS.
[2019-07-21 16:00] VITALS: BP_SYST 128; BP_DIAS 68; BP_DIAS 78
--- NOTE | 2019-07-21 19:05 | NUR ---
ICU/RN: ENDING NOTES, AM BEDSIDE REPORT ENDORSED TO NIGHT NURSE. PT ALERT, AWAKE, FOLLOWS COMMANDS. ON RA, NO DISTRESS. ALL NEEDS ATTENDED TO, SAFETY MEASURES TAKEN, BED IN LOW POSITION, SIDE RAILS UP, CALL LIGHT WITHIN REACH. WILL CONTINUE CARE.
[2019-07-21 20:00] VITALS: BP 107/70
--- NOTE | 2019-07-21 21:06 | NUR ---
RECEIVED PT IN BED AND REPORT FROM NURSE DO . PT ALERT, AWAKE, FOLLOWS COMMANDS. ON ROOM AIR, NO DISTRESS NOTED. LEFT AC PATENT AND INTACT. ALL NEEDS WILL BE ATTENDED TO, SAFETY MEASURES TAKEN, BED IN LOW POSITION, SIDE RAILS UP, CALL LIGHT WITHIN REACH. PT NOT ON ISOLATION ANYMORE CDIFF NEGATIVE MRSA NEGATVE ALSO .V/S STABLE AFEBRILE ,PTS ON NS AT 200CC/HR INFUSING WELL.WILL CONTINUE TO MONITOR PT.KEPT PTS CLEAN DRY AND COMFORTABLE.
--- NOTE | 2019-07-21 23:00 | NUR ---
MS RN NOTES IVF OF NS AT 200CC/HR COMPLETED .
[2019-07-22] VITALS: BP 102/64
[2019-07-22] MEDS: VANCOMYCIN HCL 125 MG/2.5 ML ORAL.SUSP PO SCH ×2 (00:11→05:38)
[2019-07-22] MEDS: IV NS 0.9% 1,000 ML IV PRN (00:17)
--- NOTE | 2019-07-22 02:59 | NUR ---
MS RN NOTES PTS AND REPORT GIVEN TO LOPEZ FOR CONTINUITY OF CARE.
[2019-07-22 06:32] LABS: BASOPHILS # (AUTO) 0.1 /CMM (0.0-0.2); BASOPHILS % (AUTO) 0.6 % (0.0-2.0); EOSINOPHILS % (AUTO) 1.4 % (0.0-6.0); HEMATOCRIT 40 % (39-51); LYMPHOCYTES # (AUTO) 1.2 /CMM (0.8-4.8); LYMPHOCYTES % (AUTO) 11.5 % (20.0-44.0); MEAN CORPUSCULAR HGB CONC 33 g/dl (31.0-36.0); MEAN CORPUSCULAR VOLUME 99 fL (80-96); MONOCYTES % (AUTO) 9.3 % (2.0-12.0); NEUTROPHILS # (AUTO) 8.2 /CMM (1.8-8.9); NEUTROPHILS % (AUTO) 77.2 % (43.0-81.0); PLATELET COUNT (AUTO) 295 /CMM (150-450); WHITE BLOOD COUNT (AUTO) 10.6 K/uL (4.3-11.0)
--- NOTE | 2019-07-22 07:00 | NUR ---
RN AM SHIFT NOTE PATIENT ALERT ORIENTED AND PARTICIPATING IN CARE. SIDE RAILS UP AND BED IN LOW POSIITON. IV PATENT AND FLUSHING WELL. ALL NEEDS MET AT THIS TIME.
[2019-07-22 07:01] LABS: ALBUMIN 2.2 g/dL (3.4-5.0); BILIRUBIN,TOTAL 0.4 mg/dL (0.2-1.0); CALCIUM, SERUM 7.2 mg/dL (8.5-10.1); CREATININE 1.5 mg/dL (0.6-1.3); MAGNESIUM 1.3 mg/dL (1.8-2.4); PHOSPHORUS 1.6 mg/dL (2.5-4.9); POTASSIUM 3.8 mmol/L (3.5-5.1); TOTAL PROTEIN, SERUM 6.1 g/dL (6.4-8.2)
[2019-07-22 08:00] VITALS: BP_SYST 85; BP_SYST 88; BP_DIAS 56; BP_DIAS 66
[2019-07-22] MEDS: MULTIVITAMINS,THERAGRAN 1 UDTAB TABLET PO SCH (08:00)
[2019-07-22] MEDS: APIXABAN 2.5 MG TABLET PO SCH (08:01)
[2019-07-22] MEDS: ASPIRIN EC 81 MG TABLET.DR PO SCH (08:01)
[2019-07-22] MEDS: CALCIUM CARBONATE (1250) 500 MG TABLET PO SCH (08:01)
[2019-07-22] MEDS: LEVOTHYROXINE SODIUM 100 MCG TABLET PO SCH (08:01)
[2019-07-22] MEDS: CLOTRIMAZOLE 1% 15 GM TUBE TP SCH (08:03)
[2019-07-22] MEDS: ENSURE CLEAR 237 ML LIQUID (MIX BERRY) PO SCH ×2 (08:16→13:00)
[2019-07-22] MEDS ORDERED: IV NS 0.9% 1,000 ML IV PRN (08:38)
[2019-07-22] MEDS ORDERED: NEUTRA PHOS 1 POWD.PACKET PO SCH (09:00)
[2019-07-22] MEDS: Magnesium 1GM/D5W 100ML PREMIX 100 ML IV SCH ×2 (10:06→11:43)
[2019-07-22 12:00] VITALS: BP 91/86
--- NOTE | 2019-07-22 12:52 | NUR ---
RN D/ WOUND NOTE WOUND PICTURES TAKEN UPON D/C. PATIENT REFUSED SACRAL WOUND PICTURE.
[2019-07-22 16:00] VITALS: BP 96/42
--- NOTE | 2019-07-22 16:00 | NUR ---
MINERALOGY TEACHER NOTE PATIENT IV REMOVED DOCUMENTS GIVEN PER HOSPITAL STAY. CHANGED AND CLEAN FOR TRANSFER. IV REMOVED TRANSPORT GIVEN REPORT. CALLED FACILITY TO GIVE REPORT. PATIENT REFUSED VACCINATIONS AND COUNSELED ON HOSPITAL STAY. BASELINE BP IS LOW 90'S TRANSPORT AWARE. ALL NEEDS MET AT THIS TIME WOUND PICTURES TAKEN PATIENT REFUSED SACRAL AND OTHERS DOCUMENTED IN CELIA.T
[2019-08-05] MEDS ORDERED: CEPH250C PO (15:14)
== END 2019-07-22 15:45 | DRG 682 ==
LOC: ER 13:22 → MEDSG1 17:04 → TELE1 18:31 → MEDSG1 07-21 12:46
PROVIDERS: ADMIT Student in an Organized Health Care Education/Training Program; ATTEND Student in an Organized Health Care Education/Training Program
PROC: 0HQ1XZZ Repair Face Skin, External Approach (ICD-10-PCS; principal; 2019-07-19)
DX: N17.0 Acute kidney failure with tubular necrosis (principal); E43 Unspecified severe protein-calorie malnutrition; C77.9 Secondary and unspecified malignant neoplasm of lymph node, unspecified; C79.51 Secondary malignant neoplasm of bone; C18.9 Malignant neoplasm of colon, unspecified; R64 Cachexia; Z68.1 Body mass index [BMI] 19.9 or less, adult; E86.0 Dehydration; I12.9 Hypertensive chronic kidney disease with stage 1 through stage 4 chronic kidney disease, or unspecified chronic kidney disease; N18.9 Chronic kidney disease, unspecified; S01.112A Laceration without foreign body of left eyelid and periocular area, initial encounter; W18.11XA Fall from or off toilet without subsequent striking against object, initial encounter; E89.0 Postprocedural hypothyroidism; I48.91 Unspecified atrial fibrillation; E83.42 Hypomagnesemia; D72.829 Elevated white blood cell count, unspecified; Z79.899 Other long term (current) drug therapy; Z87.891 Personal history of nicotine dependence; I95.1 Orthostatic hypotension; R53.1 Weakness; M50.323 Other cervical disc degeneration at C6-C7 level; Z95.810 Presence of automatic (implantable) cardiac defibrillator; Z90.49 Acquired absence of other specified parts of digestive tract; Z79.01 Long term (current) use of anticoagulants; Z79.82 Long term (current) use of aspirin; C73 Malignant neoplasm of thyroid gland; I70.0 Atherosclerosis of aorta; I45.81 Long QT syndrome
CPT/HCPCS: 36415; 70450-TC; 70486-TC; 71045-TC; 72125-TC; 73080-TC; 76770-TC; 80048-TC; 80053-TC; 80061-TC; 83735-TC; 84100-TC; 84439-TC; 84443-TC; 84484-TC; 85025-TC; 85730-TC; 87045-TC; 87081-TC; 89055; 97110-TC; 97116-TC; 97530-TC; G0378; J3475; J3490; J7030; Q0162

== ENCOUNTER 2019-08-01 18:17 | Inpatient (IN) | payer MEDICARE, MEDICAID ==
[~2019-08-01] VITALS: Ht 182.9 cm; Wt 49.9 kg
[~2019-08-01 18:17] MED LIST changes: +ACET100V4 PO; +ALBU2.5V38 IH; -ATEN25TA PO; +GUAI-1189 PO; +LACT-214 PO; +MULT-1119 PO; -VANC125C11 PO
--- NOTE | 2019-08-01 18:29 | NUR ---
CHUCK FROM [facility], SENT BY PMD FOR CRITICAL LABS [id number], CR5.49, K5.0 , PT AWAKE, ALERT, -SOB, NAD NOTED, VSS, PENDING MD BAHENA
[2019-08-01] MEDS ORDERED: ASCO500T9 PO (18:53)
[2019-08-01] MEDS ORDERED: ATEN25TA PO (18:53)
[2019-08-01 18:57] LABS: BASOPHILS # (AUTO) 0.1 /CMM (0.0-0.2); BASOPHILS % (AUTO) 0.7 % (0.0-2.0); EOSINOPHILS % (AUTO) 0.7 % (0.0-6.0); HEMATOCRIT 52 % (39-51); HEMOGLOBIN 17.1 g/dL (13.5-17.5); LYMPHOCYTES # (AUTO) 1.4 /CMM (0.8-4.8); LYMPHOCYTES % (AUTO) 13.6 % (20.0-44.0); MEAN CORPUSCULAR HGB CONC 33 g/dl (31.0-36.0); MEAN CORPUSCULAR VOLUME 99 fL (80-96); MONOCYTES # (AUTO) 0.8 /CMM (0.1-1.30); MONOCYTES % (AUTO) 8.3 % (2.0-12.0); NEUTROPHILS # (AUTO) 7.7 /CMM (1.8-8.9); NEUTROPHILS % (AUTO) 76.7 % (43.0-81.0); PLATELET COUNT (AUTO) 509 /CMM (150-450); RED BLOOD CELL COUNT(AUTO) 5.31 MIL/uL (4.5-6.0)
[2019-08-01 19:13] LABS: ALANINE AMINOTRANSFERASE 41 U/L (12-78); ALBUMIN 3.2 g/dL (3.4-5.0); ALKALINE PHOSPHATASE 153 U/L (46-116); ASPARTATE AMINOTRANSFERASE 25 U/L (15-37); BILIRUBIN,DIRECT 0.1 mg/dL (0.0-0.2); BILIRUBIN,TOTAL 0.5 mg/dL (0.2-1.0); CALCIUM, SERUM 8.8 mg/dL (8.5-10.1); CARBON DIOXIDE 18 mmol/L (21-32); CHLORIDE 98 mmol/L (98-107); CREATININE 6.2 mg/dL (0.6-1.3); GLUCOSE 93 mg/dL (74-106); POTASSIUM 3.8 mmol/L (3.5-5.1); SODIUM SERUM 135 mmol/L (136-145); TOTAL PROTEIN, SERUM 8.5 g/dL (6.4-8.2); UREA NITROGEN, BLOOD 109 mg/dL (7-18)
--- NOTE | 2019-08-01 19:13 | NUR ---
BUN 109
--- NOTE | 2019-08-01 19:21 | NUR ---
PT RECEIVED FROM ZANE OLIVERA FOR RENEE. PT IN BED. NAD
--- NOTE | 2019-08-01 19:24 | NUR ---
REPORT GIVEN TO MARJ DEGROOT FOR RENEE
[2019-08-01] MEDS ORDERED: IV NS 0.9% 1,000 ML IV ONE ×2 (20:00)
--- NOTE | 2019-08-01 20:16 | NUR ---
CALLED [facility], PAGED DR HORN
[2019-08-01] MEDS ORDERED: ONDANSETRON HCL/PF 4 MG/2 ML VIAL IVP PRN (21:00)
[2019-08-01] MEDS ORDERED: ZOLPIDEM TARTRATE 5 MG TABLET PO PRN (21:00)
[2019-08-01] MEDS ORDERED: MAG HYDROX/AL HYDROX/SIMETH 30 ML UDC PO PRN (21:00)
[2019-08-01] MEDS ORDERED: MAGNESIUM HYDROXIDE 30 ML UDC PO PRN (21:00)
[2019-08-01] MEDS ORDERED: HYDROCODONE/APAP 5/325MG 1 EACH TABLET PO PRN (21:00)
[2019-08-01] MEDS ORDERED: Z GUARD REMEDY 2 OZ OINT TP PRN (21:00)
[2019-08-01] MEDS ORDERED: ACETAMINOPHEN 325 MG TABLET PO PRN (21:00)
--- NOTE | 2019-08-01 21:08 | NUR ---
DR HORN AT PT'S BESIDE
--- NOTE | 2019-08-01 21:18 | NUR ---
REPORT GIVEN TO ZANE DURAND FOR RENEE. PT TO 320-2
[2019-08-01] MEDS ORDERED: Medication Not On Formulary EA (Ondansetron Hcl (Zofran) 4 MG) PO PRN (21:30)
[2019-08-01] MEDS ORDERED: ALBUTEROL FS 2.5 MG/3 ML VIAL.NEB IH PRN (21:30)
[2019-08-01] MEDS ORDERED: DIPHENOXYLATE HCL/ATROP SULF 1 UDTAB TABLET PO PRN (21:30)
--- NOTE | 2019-08-01 21:30 | NUR ---
PT TRANSPORTED TO UNIT ON [facility] GOTTI RN AND EMT AT BEDSIDE WITH ACLS PROTOCOL. NAD NOTED DURING TRANSPORT.
--- NOTE | 2019-08-01 21:40 | NUR ---
PT ADMITTED TO [facility] BED 320-[address] UNDER DR HORN. NEW ORDERS RECIEVED. REPORT RECIEVED FROM LADARIUS DEGROOT. VSS. PATIENT ORIENTED TO ROOM. VERBALIZED UNDERSTANDING TO USE CALL LIGHT FOR ASSISTANCE AND DEMONSTRATED ITS USE. BED DOWN AND LOCKED. ADMISSION ASSESSMENT PERFORMED UNTIL PATIENT STATED, "I HAVE ALREADY ANSWERED MOST OF THESE CANT YOU GET THE ANSWERS OFF MY CHART." ASSESSMENT CLPLETED WITH RECORDS FROM [facility] AND THEN CLARIFYING INFORMATION NOT PRESENT WITH THE PATIENT. PATIENT SKIN ASSESSMENT SHOWS UNBLANCHEABLE REDNESS WITH TEARS/ PARTIAL THICKNESS WOUNDS TO BUTTOUCKS. PATIENT INFORMED PICTURES MUST BE TAKEN. PATIENT REFUSING PICTURES AT THIS TIME. STATES "I JUST WANT TO BE LEFT ALONE. YOU CAN TAKE THE PICTURES LATER. PT NOTED TO HAVE VARIOUS SCABS ON ARMS AND A NOTABLE SCAB TO LEFT EYEBROW. WILL ATTEMPT TO TAKE PICTURES LATER. WILL CONT TO MONITOR.
[2019-08-01] MEDS ORDERED: ACETYLCYSTEINE 10% SOLN 400 MG/4 ML VIAL IH PRN (22:00)
[2019-08-01 22:09] VITALS: BP 120/74
[2019-08-01] MEDS: IV NS 0.9% 1,000 ML IV SCH (22:35)
[2019-08-02] MEDS: IV NS 0.9% 1,000 ML IV SCH ×4 (05:48→22:21)
--- NOTE | 2019-08-02 06:07 | NUR ---
PICTURE TAKEN OF PATIENTS SACRUM AND FILED IN CHART. PT BEING CHANGED BY MALIA AND PT ALLOWED PHOTOGRAPH TO BE TAKEN OF SCARAL AREA PT HAD BM SCARAL PERINEAL REDNESS NOTED CLEANED WITH SOAP AND WATER MEPILEX APPLIED. PT REFUSING ADDITIONAL PHOTOS STATES, "OK IM COLD, BUNDLE ME UP. YOU CAN TAKE MORE PICTURES LATER".
[2019-08-02] MEDS: LEVOTHYROXINE SODIUM 100 MCG TABLET PO SCH (06:37)
--- NOTE | 2019-08-02 06:45 | NUR ---
RN PM CLOSING NOTE PATIENT IN BED IN NO APPARENT DISTRESS SEEN WITH EYES CLOSED. BREATHING EVEN AND UNLABORED. IV PATENT TO LEFT AC INFUSING NS AT 150ML PER HOUR. BED DOWN LOCKED SRX2 CALL LIGHT WITHIN REACH.
[2019-08-02 08:00] VITALS: BP 71/45
--- NOTE | 2019-08-02 08:30 | NUR ---
MS RN RECIEVED PT ON BED WITH NO SOB NOTED, NO PAIN NOTED, RECEIVED REPORT FROM GROUNDMAN/LINEMAN,WILL CONTINUE TO MONITOR.
[2019-08-02] MEDS ORDERED: Medication Not On Formulary EA (Multivitamin/Iron/Folic Acid (Centrum Adults Tablet) 1 E PO SCH (09:00)
[2019-08-02] MEDS ORDERED: APIXABAN 5 MG TABLET PO SCH (09:00)
--- NOTE | 2019-08-02 09:29 | NUR ---
MS/RN URINE WAS COLLECTED AND SENT TO LAB FOR U/A.
[2019-08-02] MEDS: ASPIRIN EC 81 MG TABLET.DR PO SCH (09:40)
[2019-08-02] MEDS: ATENOLOL 25 MG TABLET PO SCH (09:40)
[2019-08-02] MEDS: MULTIVITAMINS,THERAGRAN 1 UDTAB TABLET PO SCH (09:40)
[2019-08-02] MEDS: BOOST PLUS FOOD-CHOCLATE 237 ML BOX PO SCH ×2 (09:40→13:00)
[2019-08-02] MEDS: ASCORBIC ACID 500 MG TABLET PO SCH (09:42)
[2019-08-02] MEDS: CALCIUM CARBONATE (1250) 500 MG TABLET PO SCH (09:42)
[2019-08-02] MEDS: APIXABAN 2.5 MG TABLET PO SCH ×2 (10:05→17:39)
--- NOTE | 2019-08-02 10:13 | NUR ---
WOUND CARE CONSULT: PT ALLOWED LIMITED ASSESSMENT OF SACRAL AREA ONLY. STAGE 2 ULCER NOTED TO SACRUM, PRESENT ON ADMISSION. PT WAS ALSO NOTED TO HAVE DRY SCABS TO ARMS AND DRY ABRASION TO LEFT EYEBROW, PRESENT ON ADMISSION. RECOMMENDATIONS MADE FOR SKIN PROTECTION AND WOUND CARE. DISCUSSED WITH NURSING STAFF. WILL SEE PRN. ADAMS ISOFLEX LOW AIRLOSS BED TO BE PLACED. MD IN AGREEMENT WITH PLAN OF CARE. Addendum: 08/02/19 at 1015 by NAGA BLACK WNDNU Amended: Links added.
[2019-08-02] MEDS ORDERED: HYDROGEL DRESSING 90 GM TUBE TP PRN (10:30)
[2019-08-02 11:23] VITALS: BP 85/65
[2019-08-02 11:39] LABS: CALCIUM, SERUM 7.4 mg/dL (8.5-10.1); CREATININE 5.2 mg/dL (0.6-1.3); POTASSIUM 3.6 mmol/L (3.5-5.1)
[2019-08-02 11:40] LABS: BASOPHILS % (AUTO) 0.5 % (0.0-2.0); EOSINOPHILS % (AUTO) 0.6 % (0.0-6.0); HEMATOCRIT 44 % (39-51); HEMOGLOBIN 14.3 g/dL (13.5-17.5); LYMPHOCYTES # (AUTO) 1.1 /CMM (0.8-4.8); LYMPHOCYTES % (AUTO) 12.5 % (20.0-44.0); MEAN CORPUSCULAR HGB CONC 32 g/dl (31.0-36.0); MEAN CORPUSCULAR VOLUME 99 fL (80-96); MONOCYTES # (AUTO) 0.5 /CMM (0.1-1.30); MONOCYTES % (AUTO) 5.5 % (2.0-12.0); NEUTROPHILS % (AUTO) 80.9 % (43.0-81.0); PLATELET COUNT (AUTO) 427 /CMM (150-450); RED BLOOD CELL COUNT(AUTO) 4.47 MIL/uL (4.5-6.0); WHITE BLOOD COUNT (AUTO) 8.7 K/uL (4.3-11.0)
[2019-08-02 11:46] LABS: ALBUMIN 2.6 g/dL (3.4-5.0); BILIRUBIN,TOTAL 0.4 mg/dL (0.2-1.0); MAGNESIUM 1.6 mg/dL (1.8-2.4); PHOSPHORUS 5.1 mg/dL (2.5-4.9); TOTAL PROTEIN, SERUM 6.3 g/dL (6.4-8.2)
--- NOTE | 2019-08-02 13:17 | NUR ---
MS/RN ELEANOR LAINEZ IS AWARE OF MAGNESIUM 1.6 AND RECEIVED AN ORDER OF MAGNESIUM OXIDE 400MG PO X1. NOTED AND CARRIED OUT.
[2019-08-02] MEDS: HYDROGEL DRESSING 90 GM TUBE TP SCH (13:24)
[2019-08-02] MEDS ORDERED: MAGNESIUM OXIDE 400 MG TABLET PO ONE (13:30)
[2019-08-02 14:10] LABS: APPEARANCE,URINE CLEAR (CLEAR); BILIRUBIN,URINE NEGATIVE (NEGATIVE); BLOOD, URINE NEGATIVE Ery/uL (NEGATIVE); COLOR,URINE YELLOW (YELLOW); KETONES,URINE NEGATIVE (NEGATIVE); LEUKOCYTE ESTERASE ,URINE SMALL (NEGATIVE); NITRITE, URINE NEGATIVE (NEGATIVE); PH,URINE 5.5 (5.0-8.0); PROTEIN,URINE TRACE mg/dl (NEGATIVE); UGLUCOSE NEGATIVE (NEGATIVE); UROBILINOGEN,URINE 0.2 EU/dL (0.2)
[2019-08-02 14:38] LABS: BACTERIA,URINE Few /HPF (None Seen); RBC,URINE 0-2 /HPF (0-2); SQUAMOUS EPITHELIAL CELL,UR Few /HPF (None Seen); WBC,URINE 21-50 /HPF (0-3)
[2019-08-02 16:00] VITALS: BP 89/68
[2019-08-02] MEDS ORDERED: NEPRO VAN 237 ML CAN PO PRN (17:00)
--- NOTE | 2019-08-02 19:02 | NUR ---
MS/RN PATIENT IN BED IN NO APPARENT DISTRESS SEEN. BREATHING EVEN AND UNLABORED. NO PAIN NOTED, IV PATENT TO LEFT AC INFUSING NS AT 150ML PER HOUR. BED DOWN LOCKED SRX2 CALL LIGHT WITHIN REACH.
--- NOTE | 2019-08-02 19:15 | NUR ---
MS/RN BEDSIDE REPORT RECIEVED FROM MECCA RN AND ORIENTEE. PATIENT IN BED IN NO APPARENT DISTRESS. BREATHING EVEN AND UNLABORED. PT DENIES PAIN IV PATENT TO LEFT AC INFUSING NS AT 150ML PER HOUR. BED DOWN LOCKED SRX2 CALL LIGHT WITHIN REACH. PER REPORT WOUND CARE NURSE WANTED PATIENT ON ISOFLEX BED. STOOL PENDING COLLECTION, PATIENT HAD DIARRHEA TODAY HX OF CDIFF NOTED ON SNF RECORD. REVIEWED POC ENCOURAGED FLUIDS. WILL CONT TO MONITOR.
[2019-08-02 20:25] VITALS: BP 92/47
[2019-08-03 06:30] LABS: BASOPHILS % (AUTO) 0.6 % (0.0-2.0); EOSINOPHILS % (AUTO) 1.4 % (0.0-6.0); HEMATOCRIT 42 % (39-51); HEMOGLOBIN 13.7 g/dL (13.5-17.5); LYMPHOCYTES % (AUTO) 13.7 % (20.0-44.0); MEAN CORPUSCULAR HGB CONC 33 g/dl (31.0-36.0); MEAN CORPUSCULAR VOLUME 97 fL (80-96); MONOCYTES # (AUTO) 0.5 /CMM (0.1-1.30); MONOCYTES % (AUTO) 6.5 % (2.0-12.0); NEUTROPHILS # (AUTO) 5.7 /CMM (1.8-8.9); NEUTROPHILS % (AUTO) 77.8 % (43.0-81.0); PLATELET COUNT (AUTO) 377 /CMM (150-450); RED BLOOD CELL COUNT(AUTO) 4.31 MIL/uL (4.5-6.0); WHITE BLOOD COUNT (AUTO) 7.3 K/uL (4.3-11.0)
[2019-08-03] MEDS: LEVOTHYROXINE SODIUM 100 MCG TABLET PO SCH (06:45)
[2019-08-03] MEDS: IV NS 0.9% 1,000 ML IV SCH (06:54)
[2019-08-03 06:57] LABS: CALCIUM, SERUM 7.4 mg/dL (8.5-10.1); CREATININE 4.1 mg/dL (0.6-1.3); MAGNESIUM 1.6 mg/dL (1.8-2.4); PHOSPHORUS 3.3 mg/dL (2.5-4.9); POTASSIUM 2.9 mmol/L (3.5-5.1)
--- NOTE | 2019-08-03 07:21 | NUR ---
MS/RN PM CLOSING NOTE PATIENT IN BED IN NO APPARENT DISTRESS. BREATHING EVEN AND UNLABORED. PT DENIES PAIN. IV PATENT TO LEFT AC INFUSING NS AT 150ML PER HOUR. BED DOWN LOCKED SRX2 CALL LIGHT WITHIN REACH. PATIENT PLACED ON ISOFLEX BED LAST NIGHT. STOOL COLLECTEDTO CHECK FOR CDIF.CALL LIGHT IN REACH.
[2019-08-03 08:00] VITALS: BP 74/54
[2019-08-03] MEDS ORDERED: IV NS 0.9% 1,000 ML IV STA (08:27)
[2019-08-03] MEDS ORDERED: POTASSIUM CHLORIDE 20 MEQ TAB.PRT.SR PO ONE (08:30)
--- NOTE | 2019-08-03 08:55 | NUR ---
patient received 1l IV NS 0.9% bolus.
[2019-08-03] MEDS ORDERED: CEPHALEXIN MONOHYDRATE 500 MG CAPSULE PO SCH (09:00)
[2019-08-03] MEDS: ATENOLOL 25 MG TABLET PO SCH (09:01)
[2019-08-03] MEDS: ASCORBIC ACID 500 MG TABLET PO SCH (09:01)
[2019-08-03] MEDS: ASPIRIN EC 81 MG TABLET.DR PO SCH (09:01)
[2019-08-03] MEDS: MULTIVITAMINS,THERAGRAN 1 UDTAB TABLET PO SCH (09:01)
[2019-08-03] MEDS: CALCIUM CARBONATE (1250) 500 MG TABLET PO SCH (09:01)
[2019-08-03] MEDS: CEPHALEXIN MONOHYDRATE 250 MG CAPSULE PO SCH (09:01)
[2019-08-03] MEDS: MAGNESIUM OXIDE 400 MG TABLET PO SCH ×2 (09:02→16:35)
[2019-08-03] MEDS: Magnesium 1GM/D5W 100ML PREMIX 100 ML IV SCH ×2 (09:02→10:30)
[2019-08-03] MEDS: HYDROGEL DRESSING 90 GM TUBE TP SCH (09:08)
[2019-08-03] MEDS: APIXABAN 2.5 MG TABLET PO SCH ×2 (09:14→16:36)
--- NOTE | 2019-08-03 10:00 | NUR ---
Urine sample sent to lab
--- NOTE | 2019-08-03 10:30 | NUR ---
Prince Young NP notified patient cant provide home medication Caprelsa at this time. Per Prince patient cannot take it due to sleekness
[2019-08-03] MEDS: CITRIC ACID/SODIUM CITRATE (BICITRA)15 ML UDC PO SCH ×4 (10:31→20:48)
--- NOTE | 2019-08-03 11:40 | NUR ---
Ria Young NP notified Lactic Acid level of 2.9
[2019-08-03] MEDS: POTASSIUM CL. PREMIX PERIPHER. 50 ML IV SCH ×4 (12:40→16:02)
--- NOTE | 2019-08-03 13:45 | NUR ---
RT Patient refused ABG @ this time. No respiratory distress or sob noted.
[2019-08-03 15:13] LABS: BILIRUBIN,DIRECT 0.1 mg/dL (0.0-0.2)
[2019-08-03 15:52] LABS: BILIRUBIN,URINE NEGATIVE (NEGATIVE); BLOOD, URINE TRACE Ery/uL (NEGATIVE); COLOR,URINE YELLOW (YELLOW); KETONES,URINE NEGATIVE (NEGATIVE); LEUKOCYTE ESTERASE ,URINE LARGE (NEGATIVE); NITRITE, URINE NEGATIVE (NEGATIVE); PH,URINE 5.5 (5.0-8.0); PROTEIN,URINE NEGATIVE (NEGATIVE); UGLUCOSE NEGATIVE (NEGATIVE); UROBILINOGEN,URINE 0.2 EU/dL (0.2)
[2019-08-03 15:54] LABS: APPEARANCE,URINE SLIGHTLY CLOUDY (CLEAR)
[2019-08-03 15:58] LABS: BACTERIA,URINE Few /HPF (None Seen); SQUAMOUS EPITHELIAL CELL,UR Few /HPF (None Seen)
[2019-08-03 16:00] VITALS: BP 101/73
[2019-08-03 16:06] LABS: CREATININE, URINE 62.9 MG/DL (30.0-125.0); URINE TOTAL PROTEIN 47.8 mg/dL (0-11.9)
[2019-08-03 16:39] LABS: EOSINOPHIL,URINE None Seen
--- NOTE | 2019-08-03 18:18 | NUR ---
patient resting in bed. Breathing unlabored and even on room air , no distress noted. IV fluid running as ordered. Second lactic acid result 1.5. Patient able to use BSC with veterinary assistant technician. All needs attended. SAfety precautions observed. Call light within reach. Will endorse to next shift for RENEE
--- NOTE | 2019-08-03 19:35 | NUR ---
MS RN OPENING NOTES RECEIVED PATIENT FROM MORNING SHIFT ALERT AND ORIENTED X 4. VERBALLY RESPONSIVE AND ABLE TO FOLLOW DIRECTIONS. BREATHING REGULAR AND UNLABORED ON ROOM AIR. RIGHT HAND G24 AND LEFT AC G18 IV LINES INTACT AND PATENT, INFUSING WELL WITH NO BLEEDING OR S/S OF INFECTION/INFILTRATION NOTED. REFUSED BODY ASSESSMENT, RISK AND BENEFITS EXPLAINED. NO COMPLAINTS OF PAIN/DISCOMFORT REPORTED OF THE TIME. BED LOW AND LOCKED ON SEMI FOWLERS POSITION. CALL LIGHT IN REACH. WILL CONTINUE TO MONITOR.
[2019-08-03 20:00] VITALS: BP 95/60
[2019-08-03] MEDS: IV NS 0.9% 1,000 ML IV PRN (21:05)
[2019-08-03 22:00] VITALS: BP 95/60
--- NOTE | 2019-08-03 23:30 | NUR ---
MS RN NOTES HAD 2 EPISODES OF WATERY STOOL OF 2299. WILL CONTINUE TO MONITOR.
[2019-08-04] VITALS (9 sets, daily range): BP systolic 69–118; BP diastolic 48–69
--- NOTE | 2019-08-04 03:00 | NUR ---
MS RN NOTES HAD 3EPISODES OF WATERY STOOL OF 0245AM; LOMOTIL 1TAB GIVEN BY MOUTH FOR DIARRHEA. NON-PHARMACOLOGICAL INTERVENTIONS PROVIDED. WILL CONTINUE TO MONITOR.
[2019-08-04] MEDS: IV NS 0.9% 1,000 ML IV PRN ×2 (04:15→14:58)
--- NOTE | 2019-08-04 06:20 | NUR ---
MS RN CLOSING NOTES PATIENT IN BED ALERT AND ORIENTED X 4. VERBALLY RESPONSIVE AND ABLE TO FOLLOW DIRECTIONS. BREATHING REGULAR AND UNLABORED ON ROOM AIR. RIGHT HAND G24 AND LEFT AC G18 IV LINES INTACT AND INFUSING WELL. REFUSED BODY ASSESSMENT AND WOUND TREATMENTS, RISK AND BENEFITS EXPLAINED. NO COMPLAINTS OF PAIN/DISCOMFORT REPORTED THE WHOLE SHIFT. ENCOURAGED TO INCREASE FOOD INTAKE. NO EPISODE OF WATERY STOOL NOTED AFTER MEDICATION ADMINISTRATION. BED LOW AND LOCKED ON SEMI FOWLERS POSITION. CALL LIGHT IN REACH. WILL ENDORSE TO MORNING SHIFT FOR RENEE.
[2019-08-04 06:30] LABS: BASOPHILS # (AUTO) 0.1 /CMM (0.0-0.2); BASOPHILS % (AUTO) 0.7 % (0.0-2.0); EOSINOPHILS % (AUTO) 3.2 % (0.0-6.0); HEMATOCRIT 38 % (39-51); HEMOGLOBIN 12.6 g/dL (13.5-17.5); LYMPHOCYTES # (AUTO) 1.4 /CMM (0.8-4.8); LYMPHOCYTES % (AUTO) 15.9 % (20.0-44.0); MEAN CORPUSCULAR HGB CONC 33 g/dl (31.0-36.0); MEAN CORPUSCULAR VOLUME 98 fL (80-96); MONOCYTES # (AUTO) 0.8 /CMM (0.1-1.30); MONOCYTES % (AUTO) 9.5 % (2.0-12.0); NEUTROPHILS # (AUTO) 6.3 /CMM (1.8-8.9); NEUTROPHILS % (AUTO) 70.7 % (43.0-81.0); PLATELET COUNT (AUTO) 344 /CMM (150-450); RED BLOOD CELL COUNT(AUTO) 3.88 MIL/uL (4.5-6.0); WHITE BLOOD COUNT (AUTO) 8.9 K/uL (4.3-11.0)
[2019-08-04 06:54] LABS: ALBUMIN 2.3 g/dL (3.4-5.0); BILIRUBIN,TOTAL 0.4 mg/dL (0.2-1.0); CALCIUM, SERUM 7.1 mg/dL (8.5-10.1); CREATININE 2.9 mg/dL (0.6-1.3); MAGNESIUM 1.6 mg/dL (1.8-2.4); PHOSPHORUS 1.9 mg/dL (2.5-4.9); POTASSIUM 3.3 mmol/L (3.5-5.1); TOTAL PROTEIN, SERUM 6.2 g/dL (6.4-8.2)
[2019-08-04 06:56] LABS: THYROID STIMULATING HORMONE 7.198 uIU/mL (0.358-3.74)
--- NOTE | 2019-08-04 07:30 | NUR ---
MS/RN opening note patient received resting in bed, A/O x2-3, confused and agitated at times, showing no signs of acute distress or SOB, saturating >95% on RA. IV line in the right hang @24g s/l and LAC #18g is running NS @ 150 ml/hr. Patient is ambulatory with assist and uses the bedside commode. Bed is in lowest position, side rails x3 in upright position, call light is within reach and patient is aware of how to call for assistance when needed. Safety, fall and aspiration precautions enforced. Will continue with plan of care.
[2019-08-04] MEDS: ATENOLOL 25 MG TABLET PO SCH (09:00)
--- NOTE | 2019-08-04 09:00 | NUR ---
MS/RN note notified MD about abnormal lab values, MD Astrid orders carried out.
[2019-08-04] MEDS: CITRIC ACID/SODIUM CITRATE (BICITRA)15 ML UDC PO SCH ×4 (09:15→20:54)
[2019-08-04] MEDS: ASPIRIN EC 81 MG TABLET.DR PO SCH (09:16)
[2019-08-04] MEDS: ASCORBIC ACID 500 MG TABLET PO SCH (09:16)
[2019-08-04] MEDS: CEPHALEXIN MONOHYDRATE 250 MG CAPSULE PO SCH (09:16)
[2019-08-04] MEDS: MULTIVITAMINS,THERAGRAN 1 UDTAB TABLET PO SCH (09:16)
[2019-08-04] MEDS: LEVOTHYROXINE SODIUM 100 MCG TABLET PO SCH (09:16)
[2019-08-04] MEDS: CALCIUM CARBONATE (1250) 500 MG TABLET PO SCH (09:16)
[2019-08-04] MEDS: APIXABAN 2.5 MG TABLET PO SCH ×2 (09:17→17:13)
[2019-08-04] MEDS: HYDROGEL DRESSING 90 GM TUBE TP SCH (09:51)
[2019-08-04] MEDS ORDERED: K PHOS NEUTRAL 250 MG TABLET PO ONE (11:00)
--- NOTE | 2019-08-04 11:00 | NUR ---
MS/RN note orthostatics done per MD DEREK order for IV NS bolus. Will continue to monitor.
[2019-08-04] MEDS ORDERED: IV NS 0.9% 1,000 ML IV STA (11:26)
[2019-08-04] MEDS: Magnesium 1GM/D5W 100ML PREMIX 100 ML IV SCH ×2 (12:06→13:29)
--- NOTE | 2019-08-04 18:30 | NUR ---
MS/RN Closing note patient is resting in bed, A/O x2-3, confused and agitated at times, showing no signs of acute distress or SOB, saturating >95% on RA. IV line in the right hang @24g s/l and LAC #18g is running NS @ 150 ml/hr. Patient is ambulatory with assist and uses the bedside commode. Watery stools x4 today, CDIFF results negative. All patient needs met, all due meds givem. patient kept clean and dry throughout shift. Bed is in lowest position, side rails x3 in upright position, call light is within reach and patient is aware of how to call for assistance when needed. Safety, fall and aspiration precautions enforced. Will endorse to night stocker.
--- NOTE | 2019-08-04 19:40 | NUR ---
MS RN OPENING NOTES RECEIVED PATIENT FROM ALERT AND ORIENTED X 4. VERBALLY RESPONSIVE AND ABLE TO FOLLOW DIRECTIONS. BREATHING REGULAR AND UNLABORED ON ROOM AIR. RIGHT HAND G24 AND LEFT AC G18 IV LINES INTACT AND PATENT, INFUSING WELL WITH NO BLEEDING OR S/SX OF INFECTION/INFILTRATION NOTED. SAFETY MEASURES INPLACE, BED LOW AND LOCKED ON SEMI FOWLERS POSITION. CALL LIGHT WITH IN EASY REACH. WILL CONTINUE TO MONITOR ACCORDINGLY.
[2019-08-05 07:00] LABS: BASOPHILS # (AUTO) 0.1 /CMM (0.0-0.2); BASOPHILS % (AUTO) 0.7 % (0.0-2.0); EOSINOPHILS % (AUTO) 3.9 % (0.0-6.0); HEMATOCRIT 40 % (39-51); LYMPHOCYTES # (AUTO) 1.3 /CMM (0.8-4.8); LYMPHOCYTES % (AUTO) 13.3 % (20.0-44.0); MEAN CORPUSCULAR HGB CONC 33 g/dl (31.0-36.0); MEAN CORPUSCULAR VOLUME 98 fL (80-96); MONOCYTES # (AUTO) 0.6 /CMM (0.1-1.30); MONOCYTES % (AUTO) 6.7 % (2.0-12.0); NEUTROPHILS # (AUTO) 7.3 /CMM (1.8-8.9); NEUTROPHILS % (AUTO) 75.4 % (43.0-81.0); PLATELET COUNT (AUTO) 303 /CMM (150-450); RED BLOOD CELL COUNT(AUTO) 4.06 MIL/uL (4.5-6.0); WHITE BLOOD COUNT (AUTO) 9.7 K/uL (4.3-11.0)
--- NOTE | 2019-08-05 07:08 | NUR ---
RN NOTES ALL NEEDS ATTENDED AND MET ABLE TO REST AND SLEPT AT INTERVALS, ALL DUE MEDS GIVEN ORDERED, CALL LIGHT WITHIN EASY REACH, NO SIGNS OF ACUTE DISTRESS,ASPIRATION PRECAUTION EMPHASIZED. IV ACCESS INTACT AND PATENT. WILL ENDORSE TO AM NURSE FOR CONTINUITY OF CARE.
[2019-08-05 07:23] LABS: CALCIUM, SERUM 7.2 mg/dL (8.5-10.1); PHOSPHORUS 1.7 mg/dL (2.5-4.9)
[2019-08-05] MEDS ORDERED: LEVOTHYROXINE SODIUM 125 MCG TABLET PO SCH (07:30)
[2019-08-05 08:00] VITALS: BP 97/45
[2019-08-05 08:54] LABS: MAGNESIUM 1.8 mg/dL (1.8-2.4)
[2019-08-05] MEDS: ATENOLOL 25 MG TABLET PO SCH (09:00)
[2019-08-05] MEDS: CITRIC ACID/SODIUM CITRATE (BICITRA)15 ML UDC PO SCH ×3 (09:27→17:16)
[2019-08-05] MEDS: CEPHALEXIN MONOHYDRATE 250 MG CAPSULE PO SCH (09:29)
[2019-08-05] MEDS: ASPIRIN EC 81 MG TABLET.DR PO SCH (09:29)
[2019-08-05] MEDS: HYDROGEL DRESSING 90 GM TUBE TP SCH (09:30)
[2019-08-05] MEDS: ASCORBIC ACID 500 MG TABLET PO SCH (09:30)
[2019-08-05] MEDS: MULTIVITAMINS,THERAGRAN 1 UDTAB TABLET PO SCH (09:30)
[2019-08-05] MEDS: CALCIUM CARBONATE (1250) 500 MG TABLET PO SCH (09:30)
[2019-08-05] MEDS: APIXABAN 2.5 MG TABLET PO SCH ×2 (09:31→17:17)
--- NOTE | 2019-08-05 09:49 | NUR ---
ALERT ORIENTED AND APPROPRIATE, IN BE WITH SITTER AT BEDSIDE. COMPLIANT WITH CARE, VOICED NO PROBLEM Addendum: 08/05/19 at 1158 by JEROME GOMEZ RN mistaken entry, please disregard the aforementioned notes
[2019-08-05] MEDS: NEUTRA PHOS 1 POWD.PACKET PO SCH ×2 (11:43→15:54)
--- NOTE | 2019-08-05 11:58 | NUR ---
alert, oriented, " i dont like being asked so many questions, I am fine" compliant with nursing care, po meds taken, allowed staff to help with adl, appetite noticeably about 50%, " dont like the food here at all" BMP revealed low albumin, bun/cr 31/2.0, po4 1.7, K+ 3.0, all replenished as ordered. IVF at 150cc /hr, NS
[2019-08-05] MEDS: POTASSIUM CHLORIDE 20 MEQ TAB.PRT.SR PO SCH (12:02)
[2019-08-05] MEDS ORDERED: CEPH250C PO (15:14)
[2019-08-05 16:00] VITALS: BP 99/73
[2019-08-05 16:06] LABS: ABG OXYGEN SATURATION 96.6 % (92.0-98.5); ABG PCO2 28.1 mmHg (35.0-45.0); ABG PH 7.426 (7.350-7.450); ABG PO2 88.7 mmHg (75.0-100.0); AaDO2 27.4 mmHg; COHb 0.1 % (0.5-1.5); MetHb 0.6 % (0.0-1.5); O2Hb 95.9 % (94.0-97.0); SITE, ABG Left Radial; VENT MODE, BG ROOM AIR
--- NOTE | 2019-08-05 16:57 | NUR ---
report given to Toshia from [facility], with all discharge instructions given when leaving this hospital. Patient is going to continue with KEFLEX po, 250mg daily until Aug 1008/2019. HL out Asked whether pics on the gluteal area ( all red, no OPEN AREAS noted), and both forearms, skin tears, which well healed, refused the pics taken at this time. Signed the personal belongings list. made aware of the transfer, which expected to milk pickup driver at 1845 this evening
--- NOTE | 2019-08-05 19:00 | NUR ---
MS RN OPENING NOTES PATIENT AWAKE AND RESTING IN BED. ALERT & ORIENTED X 4. ON ROOM AIR. NO S/S OF ACUTE RESPIRATORY DISTRESS AND NO COMPLAINTS OF PAIN AT THIS TIME. IV ON RIGHT WRIST AND LEFT AC, INTACT & PATENT, HEP LOCKED. DISCHARGE REPORT GIVEN TO [facility]. DISCHARGE PAPERS READY AND SIGNED BY PATIENT. BELONGINGS WITH PATIENT AT THE BEDSIDE. BED LOCKED, SIDE RAILS X2, SEMI-ARITA'S POSITION. CALL LIGHT WITHIN REACH. WILL CONTINUE TO MONITOR.
--- NOTE | 2019-08-05 19:30 | NUR ---
MS SPEAKING UNIT ASSEMBLER NOTES PATIENT AWAKE AND RESTING IN BED. ALERT & ORIENTED X 4. ON ROOM AIR. NO S/S OF ACUTE RESPIRATORY DISTRESS AND NO COMPLAINTS OF PAIN. IV ON RIGHT WRIST AND LEFT AC REMOVED BEFORE DISCHARGE. DISCHARGE PAPERS READY AND SIGNED BY PATIENT. BELONGINGS WITH PATIENT AT THE BEDSIDE. REPORT GIVEN TO EMS TO TRANSFER PATIENT TO [facility].
== END 2019-08-05 19:30 | DRG 393 ==
LOC: ER 18:23 → TELE 20:39 → MED 21:30
PROVIDERS: ADMIT Hospitalist; ATTEND Hospitalist
DX: K52.1 Toxic gastroenteritis and colitis (principal); N17.0 Acute kidney failure with tubular necrosis; E43 Unspecified severe protein-calorie malnutrition; N39.0 Urinary tract infection, site not specified; E87.2 Acidosis; C79.51 Secondary malignant neoplasm of bone; C18.9 Malignant neoplasm of colon, unspecified; Z68.1 Body mass index [BMI] 19.9 or less, adult; R64 Cachexia; C77.9 Secondary and unspecified malignant neoplasm of lymph node, unspecified; C79.89 Secondary malignant neoplasm of other specified sites; I10 Essential (primary) hypertension; E86.0 Dehydration; R62.7 Adult failure to thrive; B96.89 Other specified bacterial agents as the cause of diseases classified elsewhere; I12.9 Hypertensive chronic kidney disease with stage 1 through stage 4 chronic kidney disease, or unspecified chronic kidney disease; N18.9 Chronic kidney disease, unspecified; I48.91 Unspecified atrial fibrillation; N40.0 Benign prostatic hyperplasia without lower urinary tract symptoms; E87.6 Hypokalemia; E89.0 Postprocedural hypothyroidism; Z79.51 Long term (current) use of inhaled steroids; Z79.82 Long term (current) use of aspirin; Z79.899 Other long term (current) drug therapy; Z95.810 Presence of automatic (implantable) cardiac defibrillator; Z90.49 Acquired absence of other specified parts of digestive tract; Z87.891 Personal history of nicotine dependence; Z86.718 Personal history of other venous thrombosis and embolism; Z85.850 Personal history of malignant neoplasm of thyroid; Z85.72 Personal history of non-Hodgkin lymphomas; Z85.51 Personal history of malignant neoplasm of bladder; Z85.118 Personal history of other malignant neoplasm of bronchus and lung; Z83.3 Family history of diabetes mellitus; Z79.01 Long term (current) use of anticoagulants; B96.4 Proteus (mirabilis) (morganii) as the cause of diseases classified elsewhere; F09 Unspecified mental disorder due to known physiological condition; T45.1X5A Adverse effect of antineoplastic and immunosuppressive drugs, initial encounter; Y92.129 Unspecified place in nursing home as the place of occurrence of the external cause; S01.81XA Laceration without foreign body of other part of head, initial encounter; X58.XXXA Exposure to other specified factors, initial encounter; Y92.9 Unspecified place or not applicable
CPT/HCPCS: 36415; 36600; 71045-TC; 76770-TC; 80048-TC; 80053-TC; 80061-TC; 80076-TC; 81000-TC; 82248-TC; 82570-TC; 82803-TC; 83605-TC; 83735-TC; 84100-TC; 84155-TC; 84300-TC; 84439-TC; 84443-TC; 84484-TC; 85025-TC; 85378-TC; 85730-TC; 87081-TC; 87086-TC; 87186-TC; 93970-TC; A6248; G0378; J3475; J3480; J7030